=== PATIENT | female | born 1975 | race Hispanic/Latino ===

== ENCOUNTER 2022-04-20 15:39 | Emergency (ER) | payer SELFPAY ==
--- OUTSIDE RECORDS SUMMARY | 2022-04-20 15:46 | XMS REPORT | Continuity of Care Document ---
:1975 Author Organization [facility] t Address [address] [place] [address] [address]. [address] [place] [address] Care Team Providers Name Role Phone Amaris Stevens Primary Care Physician [phone] Problems This patient has no known problems. Allergies, Adverse Reactions, Alerts This patient has no known allergies or adverse reactions. Medications Ordered Filled Start Stop Current Ordering Indication Dosage Frequency Signature Comments Components Source Medication Medication Date Date Medication? Clinician (SIG) Name Name APPLY 2-3 2021-0 No 1 TIMES DAILY 8-30 TO AFFECTED 00:00: AREA(S). 00 APPLY 2-3 2021-0 No 1 TIMES DAILY 8-30 TO AFFECTED 00:00: AREA(S). 00 APPLY 2-3 2022-0 No TIMES DAILY 8-30 TO AFFECTED 00:00: AREA(S). 00 APPLY 2-3 2022-0 No TIMES DAILY 8-30 TO AFFECTED 00:00: AREA(S). 00 ketoconazol 2021-0 No 1% e 2 % 7-11 topical 00:00: cream 00 ketoconazol 2-0 No 1% e 2 % 7-11 topical 00:00: cream 00 ketoconazol 2021-0 No 1% e 2 % 7-11 topical 00:00: cream 00 ketoconazol 2-0 No 1% e 2 % 7-11 topical 00:00: cream 00 ketoconazol 2-0 No 1% e 2 % 7-11 topical 00:00: cream 00 ketoconazol 2-0 No 1% e 2 % 7-11 topical 00:00: cream 00 metronidazo 2-0 No 1mg le 500 mg 6-23 tablet 00:00: 00 metronidazo 2022-0 No 1mg le 500 mg 6-23 tablet 00:00: 00 metronidazo 2022-0 No 1mg le 500 mg 6-23 tablet 00:00: 00 metronidazo 2022-0 No 1mg le 500 mg 6-23 tablet 00:00: 00 metronidazo 2022-0 No 1mg le 500 mg 6-23 tablet 00:00: 00 metronidazo 2022-0 No 1mg le 500 mg 6-23 tablet 00:00: 00 Bactrim DS 2022-0 No 1mg 800 mg-160 6-22 mg tablet 00:00: 00 Bactrim DS 2022-0 No 1mg 800 mg-160 6-22 mg tablet 00:00: 00 Dose 2022-0 No Unknown 6-22 00:00: 00 Bactrim DS 2022-0 No 1mg 800 mg-160 6-22 mg tablet 00:00: 00 Bactrim DS 2022-0 No 1mg 800 mg-160 6-22 mg tablet 00:00: 00 Dose 2022-0 No Unknown 6-22 00:00: 00 Bactrim DS 2022-0 No 1mg 800 mg-160 6-22 mg tablet 00:00: 00 Bactrim DS 2022-0 No 1mg 800 mg-160 6-22 mg tablet 00:00: 00 Dose 2022-0 No Unknown 6-22 00:00: 00 Bactrim DS 2022-0 No 1mg 800 mg-160 6-22 mg tablet 00:00: 00 Bactrim DS 2022-0 No 1mg 800 mg-160 6-22 mg tablet 00:00: 00 Dose 2022-0 No Unknown 6-22 00:00: 00 Bactrim DS 2022-0 No 1mg 800 mg-160 6-22 mg tablet 00:00: 00 Bactrim DS 2022-0 No 1mg 800 mg-160 6-22 mg tablet 00:00: 00 Dose 2022-0 No Unknown 6-22 00:00: 00 Bactrim DS 2022-0 No 1mg 800 mg-160 6-22 mg tablet 00:00: 00 Bactrim DS 2022-0 No 1mg 800 mg-160 6-22 mg tablet 00:00: 00 Dose 2022-0 No Unknown 6-22 00:00: 00 Flagyl 500 2021-0 No 1mg mg tablet 8-14 00:00: 00 nystatin 2021-0 No 1unit/g 100,000 8-14 lucas unit/gram 00:00: topical 00 powder Flagyl 500 1-0 No 1mg mg tablet 12-11 00:00: 00 nystatin 2021-0 No 1unit/g 100,000 8-14 lucas unit/gram 00:00: topical 00 powder Flagyl 500 1-0 No 1mg mg tablet 12-11 00:00: 00 nystatin 2021-0 No 1unit/g 100,000 8-14 lucas unit/gram 00:00: topical 00 powder Flagyl 500 1-0 No 1mg mg tablet 12-11 00:00: 00 nystatin 2021-0 No 1unit/g 100,000 8-14 lucas unit/gram 00:00: topical 00 powder Flagyl 500 1-0 No 1mg mg tablet 12-11 00:00: 00 nystatin 2021-0 No 1unit/g 100,000 8-14 lucas unit/gram 00:00: topical 00 powder Flagyl 500 1-0 No 1mg mg tablet 12-11 00:00: 00 nystatin 2021-0 No 1unit/g 100,000 8-14 lucas unit/gram 00:00: topical 00 powder hydrocortis 1-0 No 1% one 1 % 4-29 topical 00:00: cream 00 Macrobid 1-0 No 1mg 100 mg 4-29 capsule 00:00: 00 Macrobid 2021-0 No 1mg 100 mg 4-29 capsule 00:00: 00 hydrocortis 2021-0 No 1% one 1 % 4-29 topical 00:00: cream 00 Macrobid 2021-0 No 1mg 100 mg 4-29 capsule 00:00: 00 Macrobid 2021-0 No 1mg 100 mg 4-29 capsule 00:00: 00 hydrocortis 2021-0 No 1% one 1 % 4-29 topical 00:00: cream 00 Macrobid 2021-0 No 1mg 100 mg 4-29 capsule 00:00: 00 Macrobid 2021-0 No 1mg 100 mg 4-29 capsule 00:00: 00 hydrocortis 2021-0 No 1% one 1 % 4-29 topical 00:00: cream 00 Macrobid 1-0 No 1mg 100 mg 4-29 capsule 00:00: 00 Dose 2021-0 No Unknown 4-29 00:00: 00 hydrocortis 1-0 No 1% one 1 % 4-29 topical 00:00: cream 00 hydrocortis 1-0 No 1% one 1 % 4-29 topical 00:00: cream 00 Macrobid 1-0 No 1mg 100 mg 4-29 capsule 00:00: 00 Dose 2021-0 No Unknown 4-29 00:00: 00 Macrobid 2021-0 No 1mg 100 mg 4-29 capsule 00:00: 00 Macrobid 1-0 No 1mg 100 mg 4-29 capsule 00:00: 00 metronidazo 2020-0 No 1mg le 500 mg 2-18 tablet 00:00: 00 metronidazo 2020-0 No 1mg le 500 mg 2-18 tablet 00:00: 00 metronidazo 2020-0 No 1mg le 500 mg 2-18 tablet 00:00: 00 metronidazo 2020-0 No 1mg le 500 mg 2-18 tablet 00:00: 00 metronidazo 2020-0 No 1mg le 500 mg 2-18 tablet 00:00: 00 metronidazo 2020-0 No 1mg le 500 mg 2-18 tablet 00:00: 00 metronidazo 2018-1 No 1mg le 500 mg 1-01 tablet 00:00: 00 metronidazo 2018-1 No 1mg le 500 mg 1-01 tablet 00:00: 00 metronidazo 2018-1 No 1mg le 500 mg 1-01 tablet 00:00: 00 metronidazo 2018-1 No 1mg le 500 mg 1-01 tablet 00:00: 00 metronidazo 2018-1 No 1mg le 500 mg 1-01 tablet 00:00: 00 metronidazo 2018-1 No 1mg le 500 mg 1-01 tablet 00:00: 00 azithromyci 2018-1 No 2mg n 500 mg 0-31 tablet 00:00: 00 azithromyci 2018-1 No 2mg n 500 mg 0-31 tablet 00:00: 00 azithromyci 2018-1 No 2mg n 500 mg 0-31 tablet 00:00: 00 azithromyci 2018-1 No 2mg n 500 mg 0-31 tablet 00:00: 00 azithromyci 2017-1 No 2mg n 500 mg 0-31 tablet 00:00: 00 azithromyci 2017-1 No 2mg n 500 mg 0-31 tablet 00:00: 00 Vital Signs Vital Name Observation Time Observation Value Comments Source BP Systolic 2022-03-06 14:10:00 110 mm[Hg] BP Diastolic 2022-03-06 14:10:00 76 mm[Hg] Weight Measured 2022-03-06 14:10:00 221.20 pounds Height Measured 2022-03-06 14:10:00 59.84 inches Body Temperature 2022-03-06 14:10:00 98.00 degrees Heart Rate 2022-03-06 14:10:00 71.00 /min Respiratory Rate 2022-03-06 14:10:00 17.00 /min BP Systolic 2022-01-11 17:34:00 110 mm[Hg] BP Diastolic 2022-01-11 17:34:00 72 mm[Hg] Weight Measured 2022-01-11 17:34:00 218.20 pounds Height Measured 2022-01-11 17:34:00 59.84 inches Body Temperature 2022-01-11 17:34:00 98.20 degrees Heart Rate 2022-01-11 17:34:00 78.00 /min Respiratory Rate 2022-01-11 17:34:00 18.00 /min BP Systolic 2022-01-04 13:29:00 123 mm[Hg] BP Diastolic 2022-01-04 13:29:00 76 mm[Hg] Weight Measured 2022-01-04 13:29:00 218.20 pounds Height Measured 2022-01-04 13:29:00 59.84 inches Body Temperature 2022-01-04 13:29:00 98.30 degrees Heart Rate 2022-01-04 13:29:00 100.00 /min Respiratory Rate 2022-01-04 13:29:00 18.00 /min BP Systolic 2021-12-27 16:20:00 96 mm[Hg] BP Diastolic 2021-12-27 16:20:00 57 mm[Hg] Weight Measured 2021-12-27 16:20:00 217.40 pounds Height Measured 2021-12-27 16:20:00 59.84 inches Body Temperature 2021-12-27 16:20:00 98.10 degrees Heart Rate 2021-12-27 16:20:00 69.00 /min Respiratory Rate 2021-12-27 16:20:00 16.00 /min BP Systolic 2021-12-01 08:37:00 119 mm[Hg] BP Diastolic 2021-12-01 08:37:00 76 mm[Hg] Weight Measured 2021-12-01 08:37:00 214.80 pounds Height Measured 2021-12-01 08:37:00 59.84 inches Body Temperature 2021-12-01 08:37:00 98.40 degrees Heart Rate 2021-12-01 08:37:00 61.00 /min Respiratory Rate 2021-12-01 08:37:00 BP Systolic 2021-11-07 14:53:00 104 mm[Hg] BP Diastolic 2021-11-07 14:53:00 72 mm[Hg] Weight Measured 2021-11-07 14:53:00 215.00 pounds Height Measured 2021-11-07 14:53:00 59.84 inches Body Temperature 2021-11-07 14:53:00 98.20 degrees Heart Rate 2021-11-07 14:53:00 72.00 /min Respiratory Rate 2021-11-07 14:53:00 18.00 /min BP Systolic 2021-10-19 10:59:00 110 mm[Hg] BP Diastolic 2021-10-19 10:59:00 76 mm[Hg] Weight Measured 2021-10-19 10:59:00 215.60 pounds Height Measured 2021-10-19 10:59:00 59.84 inches Body Temperature 2021-10-19 10:59:00 98.10 degrees Heart Rate 2021-10-19 10:59:00 64.00 /min Respiratory Rate 2021-10-19 10:59:00 19.00 /min BP Systolic 2020-12-11 10:10:00 112 mm[Hg] BP Diastolic 2020-12-11 10:10:00 80 mm[Hg] Weight Measured 2020-12-11 10:10:00 212.00 pounds Height Measured 2020-12-11 10:10:00 59.84 inches Body Temperature 2020-12-11 10:10:00 98.20 degrees Heart Rate 2020-12-11 10:10:00 79.00 /min Respiratory Rate 2020-12-11 10:10:00 17.00 /min BP Systolic 2020-09-11 10:39:00 105 mm[Hg] BP Diastolic 2020-09-11 10:39:00 69 mm[Hg] Weight Measured 2020-09-11 10:39:00 208.00 pounds Height Measured 2020-09-11 10:39:00 59.84 inches Body Temperature 2020-09-11 10:39:00 97.80 degrees Heart Rate 2020-09-11 10:39:00 76.00 /min Respiratory Rate 2020-09-11 10:39:00 BP Systolic 2020-08-26 14:28:00 108 mm[Hg] BP Diastolic 2020-08-26 14:28:00 68 mm[Hg] Weight Measured 2020-08-26 14:28:00 208.00 pounds Height Measured 2020-08-26 14:28:00 59.84 inches Body Temperature 2020-08-26 14:28:00 97.70 degrees Heart Rate 2020-08-26 14:28:00 79.00 /min Respiratory Rate 2020-08-26 14:28:00 17.00 /min BP Systolic 2019-06-12 09:03:00 108 mm[Hg] BP Diastolic 2019-06-12 09:03:00 69 mm[Hg] Weight Measured 2019-06-12 09:03:00 186.40 pounds Height Measured 2019-06-12 09:03:00 59.84 inches Body Temperature 2019-06-12 09:03:00 98.40 degrees Heart Rate 2019-06-12 09:03:00 68.00 /min Respiratory Rate 2019-06-12 09:03:00 Heart Rate 2018-02-25 11:50:00 73.00 /min Respiratory Rate 2018-02-25 11:50:00 18.00 /min BP Systolic 2018-02-25 11:50:00 105 mm[Hg] BP Diastolic 2018-02-25 11:50:00 69 mm[Hg] Weight Measured 2018-02-25 11:50:00 169.90 pounds Height Measured 2018-02-25 11:50:00 59.84 inches Body Temperature 2018-02-25 11:50:00 98.50 degrees Procedures This patient has no known procedures. Plan of Care Planned Activity Planned Date Details Comments Source Goal Plan of Care Note [code = 42239-7] Goal Plan of Care Note [code = 13620-9] Goal Plan of Care Note [code = 45418-1] Goal Plan of Care Note [code = 82753-0] Goal Plan of Care Note [code = 34360-7] Goal Plan of Care Note [code = 98940-3] Goal Plan of Care Note [code = 20152-0] Goal Plan of Care Note [code = 21169-4] Goal Plan of Care Note [code = 90335-6] Goal Plan of Care Note [code = 70668-0] Goal Plan of Care Note [code = 62040-0] Goal Plan of Care Note [code = 77950-5] Goal Plan of Care Note [code = 31763-8] Goal Plan of Care Note [code = 36784-0] Goal Plan of Care Note [code = 91222-6] Goal Plan of Care Note [code = 01316-8] Goal Plan of Care Note [code = 02658-6] Goal Plan of Care Note [code = 98357-1] Goal Plan of Care Note [code = 20840-1] Goal Plan of Care Note [code = 05681-5] Goal Plan of Care Note [code = 51969-2] Goal Plan of Care Note [code = 20298-9] Goal Plan of Care Note [code = 90847-4] Goal Plan of Care Note [code = 62578-6] Goal Plan of Care Note [code = 69405-8] Goal Plan of Care Note [code = 81435-8] Goal Plan of Care Note [code = 59197-3] Goal Plan of Care Note [code = 61918-8] Goal Plan of Care Note [code = 68509-7] Goal Plan of Care Note [code = 46292-6] Goal Plan of Care Note [code = 48225-5] Goal Plan of Care Note [code = 69464-3] Goal Plan of Care Note [code = 55597-2] Goal Plan of Care Note [code = 91240-9] Goal Plan of Care Note [code = 63111-3] Goal Plan of Care Note [code = 01945-8] Goal Plan of Care Note [code = 63765-9] Goal Plan of Care Note [code = 30760-6] Goal Plan of Care Note [code = 77307-8] Goal Plan of Care Note [code = 29512-5] Goal Plan of Care Note [code = 42012-1] Goal Plan of Care Note [code = 91063-2] Goal Plan of Care Note [code = 06656-3] Goal Plan of Care Note [code = 24079-6] Goal Plan of Care Note [code = 59110-2] Goal Plan of Care Note [code = 63005-8] Goal Plan of Care Note [code = 21170-2] Goal Plan of Care Note [code = 48203-0] Goal Plan of Care Note [code = 91888-4] Goal Plan of Care Note [code = 85677-6] Goal Plan of Care Note [code = 43105-4] Goal Plan of Care Note [code = 76049-7] Goal Plan of Care Note [code = 82465-0] Goal Plan of Care Note [code = 25746-9] Goal Plan of Care Note [code = 00774-1] Goal Plan of Care Note [code = 99979-2] Goal Plan of Care Note [code = 62164-3] Goal Plan of Care Note [code = 25334-8] Goal Plan of Care Note [code = 11796-0] Goal Plan of Care Note [code = 72683-0] Goal Plan of Care Note [code = 73947-6] Goal Plan of Care Note [code = 34152-1] Goal Plan of Care Note [code = 00303-5] Goal Plan of Care Note [code = 41643-7] Goal Plan of Care Note [code = 91547-1] Goal Plan of Care Note [code = 11430-7] Goal Plan of Care Note [code = 18767-2] Goal Plan of Care Note [code = 87742-5] Goal Plan of Care Note [code = 58058-4] Goal Plan of Care Note [code = 37800-5] Goal Plan of Care Note [code = 90592-3] Goal Plan of Care Note [code = 13217-9] Goal Plan of Care Note [code = 57533-5] Goal Plan of Care Note [code = 03221-5] Goal Plan of Care Note [code = 89351-6] Goal Plan of Care Note [code = 40147-9] Goal Plan of Care Note [code = 70234-8] Goal Plan of Care Note [code = 19759-6] Goal Plan of Care Note [code = 42711-4] Goal Plan of Care Note [code = 52535-2] Goal Plan of Care Note [code = 47693-5] Goal Plan of Care Note [code = 25442-4] Goal Plan of Care Note [code = 02151-1] Goal Plan of Care Note [code = 51832-8] Goal Plan of Care Note [code = 45809-7] Goal Plan of Care Note [code = 93037-7] Goal Plan of Care Note [code = 34023-2] Goal Plan of Care Note [code = 17136-9] Goal Plan of Care Note [code = 84617-6] Goal Plan of Care Note [code = 16433-7] Goal Plan of Care Note [code = 83683-6] Goal Plan of Care Note [code = 31145-8] Goal Plan of Care Note [code = 93349-4] Goal Plan of Care Note [code = 52301-6] Goal Plan of Care Note [code = 62383-4] Goal Plan of Care Note [code = 28385-0] Goal Plan of Care Note [code = 34663-6] Goal Plan of Care Note [code = 63727-1] Goal Plan of Care Note [code = 38305-3] Goal Plan of Care Note [code = 41762-5] Goal Plan of Care Note [code = 23851-3] Goal Plan of Care Note [code = 37831-3] Goal Plan of Care Note [code = 47619-3] Goal Plan of Care Note [code = 57800-3] Goal Plan of Care Note [code = 47657-0] Goal Plan of Care Note [code = 39351-9] Goal Plan of Care Note [code = 17725-5] Goal Plan of Care Note [code = 57489-9] Goal Plan of Care Note [code = 86717-7] Goal Plan of Care Note [code = 56328-1] Goal Plan of Care Note [code = 87423-3] Goal Plan of Care Note [code = 23837-6] Goal Plan of Care Note [code = 79874-5] Goal Plan of Care Note [code = 42696-7] Goal Plan of Care Note [code = 53328-2] Goal Plan of Care Note [code = 42510-2] Goal Plan of Care Note [code = 58770-4] Goal Plan of Care Note [code = 98718-7] Goal Plan of Care Note [code = 79547-7] Goal Plan of Care Note [code = 53726-3] Goal Plan of Care Note [code = 39286-0] Goal Plan of Care Note [code = 97891-9] Goal Plan of Care Note [code = 53401-4] Goal Plan of Care Note [code = 64998-4] Goal Plan of Care Note [code = 26027-3] Goal Plan of Care Note [code = 91806-7] Goal Plan of Care Note [code = 41708-5] Goal Plan of Care Note [code = 09494-5] Goal Plan of Care Note [code = 31133-8] Goal Plan of Care Note [code = 04070-9] Goal Plan of Care Note [code = 25500-0] Goal Plan of Care Note [code = 99927-3] Goal Plan of Care Note [code = 08990-6] Goal Plan of Care Note [code = 51716-3] Goal Plan of Care Note [code = 96359-5] Goal Plan of Care Note [code = 31498-9] Goal Plan of Care Note [code = 24491-7] Goal Plan of Care Note [code = 29562-6] Goal Plan of Care Note [code = 05266-5] Goal Plan of Care Note [code = 60899-9] Goal Plan of Care Note [code = 07969-8] Goal Plan of Care Note [code = 81471-5] Goal Plan of Care Note [code = 71812-3] Goal Plan of Care Note [code = 03099-3] Goal Plan of Care Note [code = 51981-7] Goal Plan of Care Note [code = 64229-5] Goal Plan of Care Note [code = 56392-9] Goal Plan of Care Note [code = 80310-9] Goal Plan of Care Note [code = 32346-2] Goal Plan of Care Note [code = 98463-2] Goal Plan of Care Note [code = 28309-5] Goal Plan of Care Note [code = 54115-6] Goal Plan of Care Note [code = 87408-5] Goal Plan of Care Note [code = 96535-9] Goal Plan of Care Note [code = 21454-3] Goal Plan of Care Note [code = 27596-3] Goal Plan of Care Note [code = 03978-4] Goal Plan of Care Note [code = 65833-7] Goal Plan of Care Note [code = 59112-9] Goal Plan of Care Note [code = 42172-9] Goal Plan of Care Note [code = 72299-8] Goal Plan of Care Note [code = 62359-5] Goal Plan of Care Note [code = 97895-1] Goal Plan of Care Note [code = 91778-9] Goal Plan of Care Note [code = 52332-6] Goal Plan of Care Note [code = 72023-5] Goal Plan of Care Note [code = 59912-2] Goal Plan of Care Note [code = 78983-3] Goal Plan of Care Note [code = 45362-1] Goal Plan of Care Note [code = 84381-1] Goal Plan of Care Note [code = 36808-3] Goal Plan of Care Note [code = 42465-5] Goal Plan of Care Note [code = 37480-5] Goal Plan of Care Note [code = 54665-4] Goal Plan of Care Note [code = 73500-8] Goal Plan of Care Note [code = 50497-8] Goal Plan of Care Note [code = 10047-0] Goal Plan of Care Note [code = 48844-0] Goal Plan of Care Note [code = 48984-7] Goal Plan of Care Note [code = 19759-1] Goal Plan of Care Note [code = 72170-8] Goal Plan of Care Note [code = 52088-1] Goal Plan of Care Note [code = 24099-4] Goal Plan of Care Note [code = 79695-9] Goal Plan of Care Note [code = 46898-7] Goal Plan of Care Note [code = 62623-3] Goal Plan of Care Note [code = 39194-9] Goal Plan of Care Note [code = 44220-5] Goal Plan of Care Note [code = 47462-1] Goal Plan of Care Note [code = 33263-5] Goal Plan of Care Note [code = 36197-3] Goal Plan of Care Note [code = 48622-5] Goal Plan of Care Note [code = 81968-1] Goal Plan of Care Note [code = 12113-7] Goal Plan of Care Note [code = 93902-5] Goal Plan of Care Note [code = 24297-5] Encounters Start End Encounter Admission Attending Care Care Encounter Source Date/Time Date/Time Type Type Clinicians Facility Department ID 2022-03-06 2022-03-[address] [facility] S[facility] [id number] Vadim Carroll 14:06:14 14:06:14 1107 F Kg 2022-03-06 2022-03-06 Outpatient [id number]- [id number] dh738w-s 00:00:00 00:00:00 Visit e249-12k5 578-42d3-a -i156-441 [id number] 587mm8wpt da9fde 2022-01-11 2022-01-11 Outpatient [id number] [id number] 00:00:00 00:00:00 Visit 8u97-6303 m93-5974-1 -2e75-89y p38-07a364 [id number] 75ae88 2022-01-04 2022-01-04 Outpatient [id number]- [id number] 2ey1j2-1 00:00:00 00:00:00 Visit 6m63-399s d94-981o-r -v439-38s 741-43fac0 zd77d4m4h 8d3d7b 2021-12-27 2021-12-27 Outpatient [id number]- [id number] 5e 698c3i-0 00:00:00 00:00:00 Visit 1653-4e1d 653-4e1d-8 -75x4-6na 2l5-5hpu4z h7r98d1m0 08a3a6 2021-12-01 2021-12-01 Outpatient [id number]- [id number] p34t17-4 00:00:00 00:00:00 Visit 38n0-9ihd 2l5-2bhf-m -bde4-0dc de4-0dcfef vqd0hv87q 2dd69b 2021-11-07 2021-11-07 Outpatient [id number] 281bfd-4 00:00:00 00:00:00 Visit 4416-4a71 416-4a71-b -i800-x99 [id number]-y82060 991474t5c 425f7a Results Test Description Test Time Test Comments Results Result Comments Source TSH, THIRD GENERATION 2022-01-05 06:26:42 Test Item Value Reference Range Interpretation Comme nts TSH, THIRD GENERATION (test code = 2821) 4.420 UIU/ML 0.400-4.100 H T4 (THYROXINE)2022-01-05 06:26:42 Test Item Value Reference Range Interpretation Comments T4 (THYROXINE) (test code = 2819) 5.9 UG/DL 4.5-10.5 COMPREHENSIVE METABOLIC [id number] 06:08:49 Test Item Value Reference Range Interpretation Comments GLUCOSE (test code = 168 MG/DL 70-99 H 2216) BUN (test code = 11 MG/DL 6-20 2207) CREATININE (test 0.76 MG/DL 0.60-1.30 code = 2214) eGFR (2020 CKD-EPI) 99 ML/MIN/1.73 >60 (test code = 48375) CALC BUN/CREAT (test 14 RATIO 6-28 code = 2235) SODIUM (test code = 140 MEQ/L 853-712 7516) POTASSIUM (test code 4.4 MEQ/L 3.5-5.4 = 2227) CHLORIDE (test code 102 MEQ/L 95-107 = 2215) CARBON DIOXIDE (test 28 MEQ/L 19-31 code = 2206) CALCIUM (test code = 9.9 MG/DL 8.5-10.5 2208) PROTEIN, TOTAL (test 7.5 G/DL 6.1-8.3 code = 2229) ALBUMIN (test code = 4.7 G/DL 3.5-5.2 2200) CALC GLOBULIN (test 2.8 G/DL 1.9-3.7 code = 2240) CALC A/G RATIO (test 1.7 RATIO 1.0-2.6 code = 2234) BILIRUBIN, TOTAL 0.8 MG/DL See_Comment [Automated message] (test code = 2207) The syste m which generated this result transmit corinne reference range : <=1.2. The refe rence range was not u sed to interpret th is result as normal/abnormal . ALKALINE PHOSPHATASE 105 U/L 40-115 (test code = 2204) AST (test code = 38 U/L 9-40 2217) ALT (test code = 41 U/L 5-40 H 2218) HEMOGLOBIN [id number] 05:38:15 Test Item Value Reference Range Interpretation Comments HEMOGLOBIN A1c (test 5.8 % 4.2-5.6 H UNLESS OTHERWISE code = 07588) INDICATED, ALL TESTING PERFORMED [facility] [employer] [address] [place] [id number] [place] [address] DIRECTOR: ARLETH ORO M.D. CLIA NUMBER [id number] CAP ACCREDITATION N O. [id number] 00:00:00 Test Item Value Reference Range Interpretation Comments TSH, THIRD GENERATION (test code 4.420 UIU/ML = 2821) [id number] 00:00:00 Test Item Value Reference Range Interpretation Comments TSH, THIRD GENERATION (test code 4.420 UIU/ML = 2821) [id number] 00:00:00 Test Item Value Reference Range Interpretation Comments TSH, THIRD GENERATION (test code 4.420 UIU/ML = 2821) T4 (THYROXINE)2022-01-05 00:00:00 Test Item Value Reference Range Interpretation Comments T4 (THYROXINE) (test code = 2819) 5.9 UG/DL T4 (THYROXINE)2022-01-05 00:00:00 Test Item Value Reference Range Interpretation Comments T4 (THYROXINE) (test code = 2819) 5.9 UG/DL COMPREHENSIVE METABOLIC [id number] 00:00:00 Test Item Value Reference Range Interpretation Comments GLUCOSE (test code = 2217) 168 MG/DL BUN (test code = 2208) 11 MG/DL CREATININE (test code = 2214) 0.76 MG/DL eGFR (2020 CKD-EPI) (test code 99 ML/MIN/1.73 = 88462) CALC BUN/CREAT (test code = 14 RATIO 2235) SODIUM (test code = 2231) 140 MEQ/L POTASSIUM (test code = 2228) 4.4 MEQ/L CHLORIDE (test code = 2215) 102 MEQ/L CARBON DIOXIDE (test code = 28 MEQ/L 2206) CALCIUM (test code = 2209) 9.9 MG/DL PROTEIN, TOTAL (test code = 7.5 G/DL 2228) ALBUMIN (test code = 2201) 4.7 G/DL CALC GLOBULIN (test code = 2.8 G/DL 2240) CALC A/G RATIO (test code = 1.7 RATIO 2234) BILIRUBIN, TOTAL (test code = 0.8 MG/DL 2206) ALKALINE PHOSPHATASE (test 105 U/L code = 2204) AST (test code = 2218) 38 U/L ALT (test code = 2219) 41 U/L COMPREHENSIVE METABOLIC [id number] 00:00:00 Test Item Value Reference Range Interpretation Comments GLUCOSE (test code = 2217) 168 MG/DL BUN (test code = 2208) 11 MG/DL CREATININE (test code = 2214) 0.76 MG/DL eGFR (2020 CKD-EPI) (test code 99 ML/MIN/1.73 = 14719) CALC BUN/CREAT (test code = 14 RATIO 2235) SODIUM (test code = 2231) 140 MEQ/L POTASSIUM (test code = 2228) 4.4 MEQ/L CHLORIDE (test code = 2215) 102 MEQ/L CARBON DIOXIDE (test code = 28 MEQ/L 6) CALCIUM (test code = 2209) 9.9 MG/DL PROTEIN, TOTAL (test code = 7.5 G/DL 2228) ALBUMIN (test code = 2201) 4.7 G/DL CALC GLOBULIN (test code = 2.8 G/DL 2240) CALC A/G RATIO (test code = 1.7 RATIO 2234) BILIRUBIN, TOTAL (test code = 0.8 MG/DL 2206) ALKALINE PHOSPHATASE (test 105 U/L code = 2204) AST (test code = 2218) 38 U/L ALT (test code = 2219) 41 U/L HEMOGLOBIN [id number] 00:00:00 Test Item Value Reference Range Interpretation Comments HEMOGLOBIN A1c (test code = 08027) 5.8 % HEMOGLOBIN [id number] 00:00:00 Test Item Value Reference Range Interpretation Comments HEMOGLOBIN A1c (test code = 63784) 5.8 % HEMOGLOBIN [id number] 00:00:00 Test Item Value Reference Range Interpretation Comments HEMOGLOBIN A1c (test code = 35251) 5.8 % [id number] 00:00:00 Test Item Value Reference Range Interpretation Comments TSH, THIRD GENERATION (test code 4.420 UIU/ML = 2821) [id number] 00:00:00 Test Item Value Reference Range Interpretation Comments TSH, THIRD GENERATION (test code 4.420 UIU/ML = 2821) [id number] 00:00:00 Test Item Value Reference Range Interpretation Comments TSH, THIRD GENERATION (test code 4.420 UIU/ML = 2821) T4 (THYROXINE)2022-01-05 00:00:00 Test Item Value Reference Range Interpretation Comments T4 (THYROXINE) (test code = 2819) 5.9 UG/DL T4 (THYROXINE)2022-01-05 00:00:00 Test Item Value Reference Range Interpretation Comments T4 (THYROXINE) (test code = 2819) 5.9 UG/DL COMPREHENSIVE METABOLIC [id number] 00:00:00 Test Item Value Reference Range Interpretation Comments GLUCOSE (test code = 2217) 168 MG/DL BUN (test code = 2208) 11 MG/DL CREATININE (test code = 2214) 0.76 MG/DL eGFR (2020 CKD-EPI) (test code 99 ML/MIN/1.73 = 16980) CALC BUN/CREAT (test code = 14 RATIO 2234) SODIUM (test code = 2231) 140 MEQ/L POTASSIUM (test code = 2228) 4.4 MEQ/L CHLORIDE (test code = 2215) 102 MEQ/L CARBON DIOXIDE (test code = 28 MEQ/L 2205) CALCIUM (test code = 2209) 9.9 MG/DL PROTEIN, TOTAL (test code = 7.5 G/DL 2228) ALBUMIN (test code = 2201) 4.7 G/DL CALC GLOBULIN (test code = 2.8 G/DL 2239) CALC A/G RATIO (test code = 1.7 RATIO 2233) BILIRUBIN, TOTAL (test code = 0.8 MG/DL 2206) ALKALINE PHOSPHATASE (test 105 U/L code = 2204) AST (test code = 2218) 38 U/L ALT (test code = 2219) 41 U/L COMPREHENSIVE METABOLIC [id number] 00:00:00 Test Item Value Reference Range Interpretation Comments GLUCOSE (test code = 2217) 168 MG/DL BUN (test code = 2208) 11 MG/DL CREATININE (test code = 2214) 0.76 MG/DL eGFR (2020 CKD-EPI) (test code 99 ML/MIN/1.73 = 59087) CALC BUN/CREAT (test code = 14 RATIO 2235) SODIUM (test code = 2231) 140 MEQ/L POTASSIUM (test code = 2228) 4.4 MEQ/L CHLORIDE (test code = 2215) 102 MEQ/L CARBON DIOXIDE (test code = 28 MEQ/L 2205) CALCIUM (test code = 2209) 9.9 MG/DL PROTEIN, TOTAL (test code = 7.5 G/DL 2228) ALBUMIN (test code = 2201) 4.7 G/DL CALC GLOBULIN (test code = 2.8 G/DL 2239) CALC A/G RATIO (test code = 1.7 RATIO 2233) BILIRUBIN, TOTAL (test code = 0.8 MG/DL 2206) ALKALINE PHOSPHATASE (test 105 U/L code = 2204) AST (test code = 2218) 38 U/L ALT (test code = 2219) 41 U/L HEMOGLOBIN [id number] 00:00:00 Test Item Value Reference Range Interpretation Comments HEMOGLOBIN A1c (test code = 79552) 5.8 % HEMOGLOBIN [id number] 00:00:00 Test Item Value Reference Range Interpretation Comments HEMOGLOBIN A1c (test code = 29353) 5.8 % HEMOGLOBIN [id number] 00:00:00 Test Item Value Reference Range Interpretation Comments HEMOGLOBIN A1c (test code = 20824) 5.8 % TSH, THIRD [id number] 04:49:44 Test Item Value Reference Range Interpretation Comments TSH, THIRD 5.700 UIU/ML 0.400-4.100 H UNLESS OTHERWI SE GENERATION (test INDICATED, ALL TESTING code = 2821) PERFORMED [facility], [address] [place] [address] [facility] DIRECTOR: ARLETH ORO M.D. CLIA NUMBER [id number] CAP ACCREDITATION N O. [id number] COMPREHENSIVE METABOLIC [id number] 04:33:48 Test Item Value Reference Range Interpretation Comments GLUCOSE (test code = 147 MG/DL 70-99 H 2216) BUN (test code = 14 MG/DL 6-20 2207) CREATININE (test 0.81 MG/DL 0.60-1.30 code = 2214) eGFR (2020 CKD-EPI) 92 ML/MIN/1.73 >60 (test code = 32824) CALC BUN/CREAT (test 17 RATIO 6-28 code = 2235) SODIUM (test code = 141 MEQ/L 230-428 5481) POTASSIUM (test code 4.4 MEQ/L 3.5-5.4 = 2227) CHLORIDE (test code 102 MEQ/L 95-107 = 2214) CARBON DIOXIDE (test 28 MEQ/L 19-31 code = 220) CALCIUM (test code = 9.9 MG/DL 8.5-10.5 2208) PROTEIN, TOTAL (test 7.4 G/DL 6.1-8.3 code = 222) ALBUMIN (test code = 4.6 G/DL 3.5-5.2 2200) CALC GLOBULIN (test 2.8 G/DL 1.9-3.7 code = 2240) CALC A/G RATIO (test 1.6 RATIO 1.0-2.6 code = 2234) BILIRUBIN, TOTAL 0.5 MG/DL See_Comment [Automated message] (test code = 2207) The syste m which generated this result transmit corinne reference range : <=1.2. The refe rence range was not u sed to interpret th is result as normal/abnormal . ALKALINE PHOSPHATASE 116 U/L 40-113 H (test code = 2204) AST (test code = 30 U/L 9-40 2217) ALT (test code = 46 U/L 5-40 H 2218) CBC W/AUTO DIFF WITH [id number] 02:57:27 Test Item Value Reference Range Interpretation Comments WBC (test code = 9.8 K/UL 3.5-11.0 1001) RBC (test code = 4.84 M/UL 3.80-5.40 1002) HEMOGLOBIN (test code 13.7 G/DL 11.5-15.5 = 1003) HEMATOCRIT (test code 42.0 % 34.0-45.0 = 1004) MCV (test code = 86.8 fL 80.0-99.0 1005) MCH (test code = 28.3 PG 25.0-33.0 1006) MCHC (test code = 32.6 G/DL 31.0-36.0 1007) RDW (test code = 13.2 % 11.5-15.0 1038) NEUTROPHILS (test 63.7 % code = 1008) LYMPHOCYTES (test 29.4 % code = 1010) MONOCYTES (test code 3.7 % = 1011) EOSINOPHILS (test 1.8 % code = 1012) BASOPHILS (test code 1.1 % = 1013) IMMATURE GRANULOCYTES 0.3 % (test code = 1036) NUCLEATED RBCS (test 0.0 /100 WBC'S See_Comment [Aut omated code = 1065) message] The sy stem which generated this result transmitted reference range : 0.0. The refere nce range was not u sed to interpret th is result as normal/abnormal . PLATELET COUNT (test 316 K/UL 130-400 code = 1015) ABSOLUTE NEUTROPHILS 6.22 K/UL 1.50-7.50 (test code = 1066) ABSOLUTE LYMPHOCYTES 2.88 K/UL 1.00-4.00 (test code = 1067) ABSOLUTE MONOCYTES 0.36 K/UL 0.20-1.00 (test code = 1068) ABSOLUTE EOSINOPHILS 0.18 K/UL 0.00-0.50 (test code = 1040) ABSOLUTE BASOPHILS 0.11 K/UL 0.00-0.20 (test code = 1069) ABS IMMATURE 0.03 K/UL 0.00-0.10 GRANULOCYTES (test code = 1020) ABS NUCLEATED RBCS 0.00 K/UL 0.00-0.11 (test code = 99001) CBC W/AUTO [id number] 00:00:00 Test Item Value Reference Range Interpretation Comments WBC (test code = 1001) 9.8 K/UL RBC (test code = 1002) 4.84 M/UL HEMOGLOBIN (test code = 1003) 13.7 G/DL HEMATOCRIT (test code = 1004) 42.0 % MCV (test code = 1005) 86.8 fL MCH (test code = 1006) 28.3 PG MCHC (test code = 1007) 32.6 G/DL RDW (test code = 1038) 13.2 % NEUTROPHILS (test code = 1008) 63.7 % LYMPHOCYTES (test code = 1010) 29.4 % MONOCYTES (test code = 1011) 3.7 % EOSINOPHILS (test code = 1012) 1.8 % BASOPHILS (test code = 1013) 1.1 % IMMATURE GRANULOCYTES (test 0.3 % code = 1036) NUCLEATED RBCS (test code = 0.0 /100WBC'S 1065) PLATELET COUNT (test code = 316 K/UL 1015) ABSOLUTE NEUTROPHILS (test code 6.22 K/UL = 1066) ABSOLUTE LYMPHOCYTES (test code 2.88 K/UL = 1067) ABSOLUTE MONOCYTES (test code = 0.36 K/UL 1068) ABSOLUTE EOSINOPHILS (test code 0.18 K/UL = 1040) ABSOLUTE BASOPHILS (test code = 0.11 K/UL 1069) ABS IMMATURE GRANULOCYTES (test 0.03 K/UL code = 1020) ABS NUCLEATED RBCS (test code = 0.00 K/UL 51319) CBC W/AUTO [id number] 00:00:00 Test Item Value Reference Range Interpretation Comments WBC (test code = 1001) 9.8 K/UL RBC (test code = 1002) 4.84 M/UL HEMOGLOBIN (test code = 1003) 13.7 G/DL HEMATOCRIT (test code = 1004) 42.0 % MCV (test code = 1005) 86.8 fL MCH (test code = 1006) 28.3 PG MCHC (test code = 1007) 32.6 G/DL RDW (test code = 1038) 13.2 % NEUTROPHILS (test code = 1008) 63.7 % LYMPHOCYTES (test code = 1010) 29.4 % MONOCYTES (test code = 1011) 3.7 % EOSINOPHILS (test code = 1012) 1.8 % BASOPHILS (test code = 1013) 1.1 % IMMATURE GRANULOCYTES (test 0.3 % code = 1036) NUCLEATED RBCS (test code = 0.0 /100WBC'S 1065) PLATELET COUNT (test code = 316 K/UL 1015) ABSOLUTE NEUTROPHILS (test code 6.22 K/UL = 1066) ABSOLUTE LYMPHOCYTES (test code 2.88 K/UL = 1067) ABSOLUTE MONOCYTES (test code = 0.36 K/UL 1068) ABSOLUTE EOSINOPHILS (test code 0.18 K/UL = 1040) ABSOLUTE BASOPHILS (test code = 0.11 K/UL 1069) ABS IMMATURE GRANULOCYTES (test 0.03 K/UL code = 1020) ABS NUCLEATED RBCS (test code = 0.00 K/UL 50787) CBC W/AUTO [id number] 00:00:00 Test Item Value Reference Range Interpretation Comments WBC (test code = 1001) 9.8 K/UL RBC (test code = 1002) 4.84 M/UL HEMOGLOBIN (test code = 1003) 13.7 G/DL HEMATOCRIT (test code = 1004) 42.0 % MCV (test code = 1005) 86.8 fL MCH (test code = 1006) 28.3 PG MCHC (test code = 1007) 32.6 G/DL RDW (test code = 1038) 13.2 % NEUTROPHILS (test code = 1008) 63.7 % LYMPHOCYTES (test code = 1010) 29.4 % MONOCYTES (test code = 1011) 3.7 % EOSINOPHILS (test code = 1012) 1.8 % BASOPHILS (test code = 1013) 1.1 % IMMATURE GRANULOCYTES (test 0.3 % code = 1036) NUCLEATED RBCS (test code = 0.0 /100WBC'S 1065) PLATELET COUNT (test code = 316 K/UL 1015) ABSOLUTE NEUTROPHILS (test code 6.22 K/UL = 1066) ABSOLUTE LYMPHOCYTES (test code 2.88 K/UL = 1067) ABSOLUTE MONOCYTES (test code = 0.36 K/UL 1068) ABSOLUTE EOSINOPHILS (test code 0.18 K/UL = 1040) ABSOLUTE BASOPHILS (test code = 0.11 K/UL 1069) ABS IMMATURE GRANULOCYTES (test 0.03 K/UL code = 1020) ABS NUCLEATED RBCS (test code = 0.00 K/UL 79348) COMPREHENSIVE METABOLIC [id number] 00:00:00 Test Item Value Reference Range Interpretation Comments GLUCOSE (test code = 2217) 147 MG/DL BUN (test code = 2208) 14 MG/DL CREATININE (test code = 2214) 0.81 MG/DL eGFR (2020 CKD-EPI) (test code 92 ML/MIN/1.73 = 72933) CALC BUN/CREAT (test code = 17 RATIO 2235) SODIUM (test code = 2231) 141 MEQ/L POTASSIUM (test code = 2228) 4.4 MEQ/L CHLORIDE (test code = 2215) 102 MEQ/L CARBON DIOXIDE (test code = 28 MEQ/L 2206) CALCIUM (test code = 2209) 9.9 MG/DL PROTEIN, TOTAL (test code = 7.4 G/DL 222) ALBUMIN (test code = 2201) 4.6 G/DL CALC GLOBULIN (test code = 2.8 G/DL 2240) CALC A/G RATIO (test code = 1.6 RATIO 2234) BILIRUBIN, TOTAL (test code = 0.5 MG/DL 2206) ALKALINE PHOSPHATASE (test 116 U/L code = 2204) AST (test code = 2218) 30 U/L ALT (test code = 2219) 46 U/L COMPREHENSIVE METABOLIC [id number] 00:00:00 Test Item Value Reference Range Interpretation Comments GLUCOSE (test code = 2217) 147 MG/DL BUN (test code = 2208) 14 MG/DL CREATININE (test code = 2214) 0.81 MG/DL eGFR (2020 CKD-EPI) (test code 92 ML/MIN/1.73 = 00280) CALC BUN/CREAT (test code = 17 RATIO 2235) SODIUM (test code = 2231) 141 MEQ/L POTASSIUM (test code = 2228) 4.4 MEQ/L CHLORIDE (test code = 2215) 102 MEQ/L CARBON DIOXIDE (test code = 28 MEQ/L 2206) CALCIUM (test code = 2209) 9.9 MG/DL PROTEIN, TOTAL (test code = 7.4 G/DL 2228) ALBUMIN (test code = 2201) 4.6 G/DL CALC GLOBULIN (test code = 2.8 G/DL 2240) CALC A/G RATIO (test code = 1.6 RATIO 2234) BILIRUBIN, TOTAL (test code = 0.5 MG/DL 2206) ALKALINE PHOSPHATASE (test 116 U/L code = 2204) AST (test code = 2218) 30 U/L ALT (test code = 2219) 46 U/L TSH, THIRD [id number] 00:00:00 Test Item Value Reference Range Interpretation Comments TSH, THIRD GENERATION (test code 5.700 UIU/ML = 2821) TSH, THIRD [id number] 00:00:00 Test Item Value Reference Range Interpretation Comments TSH, THIRD GENERATION (test code 5.700 UIU/ML = 2821) TSH, THIRD [id number] 00:00:00 Test Item Value Reference Range Interpretation Comments TSH, THIRD GENERATION (test code 5.700 UIU/ML = 2821) CBC W/AUTO [id number] 00:00:00 Test Item Value Reference Range Interpretation Comments WBC (test code = 1001) 9.8 K/UL RBC (test code = 1002) 4.84 M/UL HEMOGLOBIN (test code = 1003) 13.7 G/DL HEMATOCRIT (test code = 1004) 42.0 % MCV (test code = 1005) 86.8 fL MCH (test code = 1006) 28.3 PG MCHC (test code = 1007) 32.6 G/DL RDW (test code = 1038) 13.2 % NEUTROPHILS (test code = 1008) 63.7 % LYMPHOCYTES (test code = 1010) 29.4 % MONOCYTES (test code = 1011) 3.7 % EOSINOPHILS (test code = 1012) 1.8 % BASOPHILS (test code = 1013) 1.1 % IMMATURE GRANULOCYTES (test 0.3 % code = 1036) NUCLEATED RBCS (test code = 0.0 /100WBC'S 1065) PLATELET COUNT (test code = 316 K/UL 1015) ABSOLUTE NEUTROPHILS (test code 6.22 K/UL = 1066) ABSOLUTE LYMPHOCYTES (test code 2.88 K/UL = 1067) ABSOLUTE MONOCYTES (test code = 0.36 K/UL 1068) ABSOLUTE EOSINOPHILS (test code 0.18 K/UL = 1040) ABSOLUTE BASOPHILS (test code = 0.11 K/UL 1069) ABS IMMATURE GRANULOCYTES (test 0.03 K/UL code = 1020) ABS NUCLEATED RBCS (test code = 0.00 K/UL 29646) CBC W/AUTO [id number] 00:00:00 Test Item Value Reference Range Interpretation Comments WBC (test code = 1001) 9.8 K/UL RBC (test code = 1002) 4.84 M/UL HEMOGLOBIN (test code = 1003) 13.7 G/DL HEMATOCRIT (test code = 1004) 42.0 % MCV (test code = 1005) 86.8 fL MCH (test code = 1006) 28.3 PG MCHC (test code = 1007) 32.6 G/DL RDW (test code = 1038) 13.2 % NEUTROPHILS (test code = 1008) 63.7 % LYMPHOCYTES (test code = 1010) 29.4 % MONOCYTES (test code = 1011) 3.7 % EOSINOPHILS (test code = 1012) 1.8 % BASOPHILS (test code = 1013) 1.1 % IMMATURE GRANULOCYTES (test 0.3 % code = 1036) NUCLEATED RBCS (test code = 0.0 /100WBC'S 1065) PLATELET COUNT (test code = 316 K/UL 1015) ABSOLUTE NEUTROPHILS (test code 6.22 K/UL = 1066) ABSOLUTE LYMPHOCYTES (test code 2.88 K/UL = 1067) ABSOLUTE MONOCYTES (test code = 0.36 K/UL 1068) ABSOLUTE EOSINOPHILS (test code 0.18 K/UL = 1040) ABSOLUTE BASOPHILS (test code = 0.11 K/UL 1069) ABS IMMATURE GRANULOCYTES (test 0.03 K/UL code = 1020) ABS NUCLEATED RBCS (test code = 0.00 K/UL 63532) CBC W/AUTO [id number] 00:00:00 Test Item Value Reference Range Interpretation Comments WBC (test code = 1001) 9.8 K/UL RBC (test code = 1002) 4.84 M/UL HEMOGLOBIN (test code = 1003) 13.7 G/DL HEMATOCRIT (test code = 1004) 42.0 % MCV (test code = 1005) 86.8 fL MCH (test code = 1006) 28.3 PG MCHC (test code = 1007) 32.6 G/DL RDW (test code = 1038) 13.2 % NEUTROPHILS (test code = 1008) 63.7 % LYMPHOCYTES (test code = 1010) 29.4 % MONOCYTES (test code = 1011) 3.7 % EOSINOPHILS (test code = 1012) 1.8 % BASOPHILS (test code = 1013) 1.1 % IMMATURE GRANULOCYTES (test 0.3 % code = 1036) NUCLEATED RBCS (test code = 0.0 /100WBC'S 1065) PLATELET COUNT (test code = 316 K/UL 1015) ABSOLUTE NEUTROPHILS (test code 6.22 K/UL = 1066) ABSOLUTE LYMPHOCYTES (test code 2.88 K/UL = 1067) ABSOLUTE MONOCYTES (test code = 0.36 K/UL 1068) ABSOLUTE EOSINOPHILS (test code 0.18 K/UL = 1040) ABSOLUTE BASOPHILS (test code = 0.11 K/UL 1069) ABS IMMATURE GRANULOCYTES (test 0.03 K/UL code = 1020) ABS NUCLEATED RBCS (test code = 0.00 K/UL 03034) COMPREHENSIVE METABOLIC [id number] 00:00:00 Test Item Value Reference Range Interpretation Comments GLUCOSE (test code = 2217) 147 MG/DL BUN (test code = 2208) 14 MG/DL CREATININE (test code = 2214) 0.81 MG/DL eGFR (2020 CKD-EPI) (test code 92 ML/MIN/1.73 = 87333) CALC BUN/CREAT (test code = 17 RATIO 2235) SODIUM (test code = 2231) 141 MEQ/L POTASSIUM (test code = 2228) 4.4 MEQ/L CHLORIDE (test code = 2215) 102 MEQ/L CARBON DIOXIDE (test code = 28 MEQ/L 2205) CALCIUM (test code = 2209) 9.9 MG/DL PROTEIN, TOTAL (test code = 7.4 G/DL 2228) ALBUMIN (test code = 2201) 4.6 G/DL CALC GLOBULIN (test code = 2.8 G/DL 2240) CALC A/G RATIO (test code = 1.6 RATIO 2234) BILIRUBIN, TOTAL (test code = 0.5 MG/DL 2206) ALKALINE PHOSPHATASE (test 116 U/L code = 2204) AST (test code = 2218) 30 U/L ALT (test code = 2219) 46 U/L COMPREHENSIVE METABOLIC [id number] 00:00:00 Test Item Value Reference Range Interpretation Comments GLUCOSE (test code = 2217) 147 MG/DL BUN (test code = 2208) 14 MG/DL CREATININE (test code = 2214) 0.81 MG/DL eGFR (2020 CKD-EPI) (test code 92 ML/MIN/1.73 = 52303) CALC BUN/CREAT (test code = 17 RATIO 2235) SODIUM (test code = 2231) 141 MEQ/L POTASSIUM (test code = 2228) 4.4 MEQ/L CHLORIDE (test code = 2215) 102 MEQ/L CARBON DIOXIDE (test code = 28 MEQ/L 2205) CALCIUM (test code = 2209) 9.9 MG/DL PROTEIN, TOTAL (test code = 7.4 G/DL 2228) ALBUMIN (test code = 2201) 4.6 G/DL CALC GLOBULIN (test code = 2.8 G/DL 0) CALC A/G RATIO (test code = 1.6 RATIO 2233) BILIRUBIN, TOTAL (test code = 0.5 MG/DL 2206) ALKALINE PHOSPHATASE (test 116 U/L code = 2204) AST (test code = 2218) 30 U/L ALT (test code = 2219) 46 U/L TSH, THIRD [id number] 00:00:00 Test Item Value Reference Range Interpretation Comments TSH, THIRD GENERATION (test code 5.700 UIU/ML = 2821) TSH, THIRD [id number] 00:00:00 Test Item Value Reference Range Interpretation Comments TSH, THIRD GENERATION (test code 5.700 UIU/ML = 2821) TSH, THIRD [id number] 00:00:00 Test Item Value Reference Range Interpretation Comments TSH, THIRD GENERATION (test code 5.700 UIU/ML = 2821) CBC W/AUTO [id number] 00:00:00 Test Item Value Reference Range Interpretation Comments WBC (test code = 1001) 9.8 K/UL RBC (test code = 1002) 4.84 M/UL HEMOGLOBIN (test code = 1003) 13.7 G/DL HEMATOCRIT (test code = 1004) 42.0 % MCV (test code = 1005) 86.8 fL MCH (test code = 1006) 28.3 PG MCHC (test code = 1007) 32.6 G/DL RDW (test code = 1038) 13.2 % NEUTROPHILS (test code = 1008) 63.7 % LYMPHOCYTES (test code = 1010) 29.4 % MONOCYTES (test code = 1011) 3.7 % EOSINOPHILS (test code = 1012) 1.8 % BASOPHILS (test code = 1013) 1.1 % IMMATURE GRANULOCYTES (test 0.3 % code = 1036) NUCLEATED RBCS (test code = 0.0 /100WBC'S 1065) PLATELET COUNT (test code = 316 K/UL 1015) ABSOLUTE NEUTROPHILS (test code 6.22 K/UL = 1066) ABSOLUTE LYMPHOCYTES (test code 2.88 K/UL = 1067) ABSOLUTE MONOCYTES (test code = 0.36 K/UL 1068) ABSOLUTE EOSINOPHILS (test code 0.18 K/UL = 1040) ABSOLUTE BASOPHILS (test code = 0.11 K/UL 1069) ABS IMMATURE GRANULOCYTES (test 0.03 K/UL code = 1020) ABS NUCLEATED RBCS (test code = 0.00 K/UL 23372) CBC W/AUTO [id number] 00:00:00 Test Item Value Reference Range Interpretation Comments WBC (test code = 1001) 9.8 K/UL RBC (test code = 1002) 4.84 M/UL HEMOGLOBIN (test code = 1003) 13.7 G/DL HEMATOCRIT (test code = 1004) 42.0 % MCV (test code = 1005) 86.8 fL MCH (test code = 1006) 28.3 PG MCHC (test code = 1007) 32.6 G/DL RDW (test code = 1038) 13.2 % NEUTROPHILS (test code = 1008) 63.7 % LYMPHOCYTES (test code = 1010) 29.4 % MONOCYTES (test code = 1011) 3.7 % EOSINOPHILS (test code = 1012) 1.8 % BASOPHILS (test code = 1013) 1.1 % IMMATURE GRANULOCYTES (test 0.3 % code = 1036) NUCLEATED RBCS (test code = 0.0 /100WBC'S 1065) PLATELET COUNT (test code = 316 K/UL 1015) ABSOLUTE NEUTROPHILS (test code 6.22 K/UL = 1066) ABSOLUTE LYMPHOCYTES (test code 2.88 K/UL = 1067) ABSOLUTE MONOCYTES (test code = 0.36 K/UL 1068) ABSOLUTE EOSINOPHILS (test code 0.18 K/UL = 1040) ABSOLUTE BASOPHILS (test code = 0.11 K/UL 1069) ABS IMMATURE GRANULOCYTES (test 0.03 K/UL code = 1020) ABS NUCLEATED RBCS (test code = 0.00 K/UL 79625) CBC W/AUTO [id number] 00:00:00 Test Item Value Reference Range Interpretation Comments WBC (test code = 1001) 9.8 K/UL RBC (test code = 1002) 4.84 M/UL HEMOGLOBIN (test code = 1003) 13.7 G/DL HEMATOCRIT (test code = 1004) 42.0 % MCV (test code = 1005) 86.8 fL MCH (test code = 1006) 28.3 PG MCHC (test code = 1007) 32.6 G/DL RDW (test code = 1038) 13.2 % NEUTROPHILS (test code = 1008) 63.7 % LYMPHOCYTES (test code = 1010) 29.4 % MONOCYTES (test code = 1011) 3.7 % EOSINOPHILS (test code = 1012) 1.8 % BASOPHILS (test code = 1013) 1.1 % IMMATURE GRANULOCYTES (test 0.3 % code = 1036) NUCLEATED RBCS (test code = 0.0 /100WBC'S 1065) PLATELET COUNT (test code = 316 K/UL 1015) ABSOLUTE NEUTROPHILS (test code 6.22 K/UL = 1066) ABSOLUTE LYMPHOCYTES (test code 2.88 K/UL = 1067) ABSOLUTE MONOCYTES (test code = 0.36 K/UL 1068) ABSOLUTE EOSINOPHILS (test code 0.18 K/UL = 1040) ABSOLUTE BASOPHILS (test code = 0.11 K/UL 1069) ABS IMMATURE GRANULOCYTES (test 0.03 K/UL code = 1020) ABS NUCLEATED RBCS (test code = 0.00 K/UL 37718) COMPREHENSIVE METABOLIC [id number] 00:00:00 Test Item Value Reference Range Interpretation Comments GLUCOSE (test code = 2217) 147 MG/DL BUN (test code = 2208) 14 MG/DL CREATININE (test code = 2214) 0.81 MG/DL eGFR (2020 CKD-EPI) (test code 92 ML/MIN/1.73 = 90028) CALC BUN/CREAT (test code = 17 RATIO 2235) SODIUM (test code = 2231) 141 MEQ/L POTASSIUM (test code = 2228) 4.4 MEQ/L CHLORIDE (test code = 2215) 102 MEQ/L CARBON DIOXIDE (test code = 28 MEQ/L 2205) CALCIUM (test code = 2209) 9.9 MG/DL PROTEIN, TOTAL (test code = 7.4 G/DL 2228) ALBUMIN (test code = 2201) 4.6 G/DL CALC GLOBULIN (test code = 2.8 G/DL 2240) CALC A/G RATIO (test code = 1.6 RATIO 2234) BILIRUBIN, TOTAL (test code = 0.5 MG/DL 2206) ALKALINE PHOSPHATASE (test 116 U/L code = 2204) AST (test code = 2218) 30 U/L ALT (test code = 2219) 46 U/L COMPREHENSIVE METABOLIC [id number] 00:00:00 Test Item Value Reference Range Interpretation Comments GLUCOSE (test code = 2217) 147 MG/DL BUN (test code = 2208) 14 MG/DL CREATININE (test code = 2214) 0.81 MG/DL eGFR (2020 CKD-EPI) (test code 92 ML/MIN/1.73 = 87253) CALC BUN/CREAT (test code = 17 RATIO 2235) SODIUM (test code = 2231) 141 MEQ/L POTASSIUM (test code = 2228) 4.4 MEQ/L CHLORIDE (test code = 2215) 102 MEQ/L CARBON DIOXIDE (test code = 28 MEQ/L 2205) CALCIUM (test code = 2209) 9.9 MG/DL PROTEIN, TOTAL (test code = 7.4 G/DL 2228) ALBUMIN (test code = 2201) 4.6 G/DL CALC GLOBULIN (test code = 2.8 G/DL 2240) CALC A/G RATIO (test code = 1.6 RATIO 4) BILIRUBIN, TOTAL (test code = 0.5 MG/DL 2206) ALKALINE PHOSPHATASE (test 116 U/L code = 2204) AST (test code = 2218) 30 U/L ALT (test code = 2219) 46 U/L TSH, THIRD [id number] 00:00:00 Test Item Value Reference Range Interpretation Comments TSH, THIRD GENERATION (test code 5.700 UIU/ML = 2821) TSH, THIRD [id number] 00:00:00 Test Item Value Reference Range Interpretation Comments TSH, THIRD GENERATION (test code 5.700 UIU/ML = 2821) TSH, THIRD [id number] 00:00:00 Test Item Value Reference Range Interpretation Comments TSH, THIRD GENERATION (test code 5.700 UIU/ML = 2821) VAGINAL PATHOGENS DNA [id number] 13:24:20 Test Item Value Reference Range Interpretation Comments CHRISTIAN SPECIES (test NEGATIVE NEGATIVE code = ) G. VAGINALIS (test POSITIVE NEGATIVE A code = ) T. VAGINALIS (test NEGATIVE NEGATIVE UNLESS O THERWISE code = ) INDICATED, ALL TESTING PERFORMED [facility] PATHOLOGY [facility], [facility]. [address] [place] [address] 4 LABORATORY DIRE CTOR: Milagro ERICIA NUMBER [id number] [place] [id number] VAGINAL PATHOGENS DNA [id number] 00:00:00 Test Item Value Reference Range Interpretation Comments CHRISTIAN SPECIES (test code = 22831) NEGATIVE G. VAGINALIS (test code = 99534) POSITIVE T. VAGINALIS (test code = 34781) NEGATIVE VAGINAL PATHOGENS DNA [id number] 00:00:00 Test Item Value Reference Range Interpretation Comments CHRISTIAN SPECIES (test code = 14188) NEGATIVE G. VAGINALIS (test code = 88262) POSITIVE T. VAGINALIS (test code = 02529) NEGATIVE VAGINAL PATHOGENS DNA [id number] 00:00:00 Test Item Value Reference Range Interpretation Comments CHRISTIAN SPECIES (test code = 03128) NEGATIVE G. VAGINALIS (test code = 77770) POSITIVE T. VAGINALIS (test code = 04108) NEGATIVE VAGINAL PATHOGENS DNA [id number] 00:00:00 Test Item Value Reference Range Interpretation Comments CHRISTIAN SPECIES (test code = 47932) NEGATIVE G. VAGINALIS (test code = 91486) POSITIVE T. VAGINALIS (test code = 92889) NEGATIVE VAGINAL PATHOGENS DNA [id number] 00:00:00 Test Item Value Reference Range Interpretation Comments CHRISTIAN SPECIES (test code = 29399) NEGATIVE G. VAGINALIS (test code = 12525) POSITIVE T. VAGINALIS (test code = 32015) NEGATIVE VAGINAL PATHOGENS DNA [id number] 00:00:00 Test Item Value Reference Range Interpretation Comments CHRISTIAN SPECIES (test code = 22853) NEGATIVE G. VAGINALIS (test code = 71159) POSITIVE T. VAGINALIS (test code = 84102) NEGATIVE VAGINAL PATHOGENS DNA [id number] 00:00:00 Test Item Value Reference Range Interpretation Comments CHRISTIAN SPECIES (test code = 70868) NEGATIVE G. VAGINALIS (test code = 11025) POSITIVE T. VAGINALIS (test code = 56058) NEGATIVE VAGINAL PATHOGENS DNA [id number] 00:00:00 Test Item Value Reference Range Interpretation Comments CHRISTIAN SPECIES (test code = 06817) NEGATIVE G. VAGINALIS (test code = 67999) POSITIVE T. VAGINALIS (test code = 13084) NEGATIVE VAGINAL PATHOGENS DNA [id number] 00:00:00 Test Item Value Reference Range Interpretation Comments CHRISTIAN SPECIES (test code = 97245) NEGATIVE G. VAGINALIS (test code = 44653) POSITIVE T. VAGINALIS (test code = 94206) NEGATIVE VAGINAL PATHOGENS DNA [id number] 00:00:00 Test Item Value Reference Range Interpretation Comments CHRISTIAN SPECIES (test code = 71334) NEGATIVE G. VAGINALIS (test code = 28982) POSITIVE T. VAGINALIS (test code = 65091) NEGATIVE VAGINAL PATHOGENS DNA [id number] 00:00:00 Test Item Value Reference Range Interpretation Comments CHRISTIAN SPECIES (test code = 92820) NEGATIVE G. VAGINALIS (test code = 18384) POSITIVE T. VAGINALIS (test code = 27278) NEGATIVE VAGINAL PATHOGENS DNA [id number] 00:00:00 Test Item Value Reference Range Interpretation Comments CHRISTIAN SPECIES (test code = 89144) NEGATIVE G. VAGINALIS (test code = 30342) POSITIVE T. VAGINALIS (test code = 22801) NEGATIVE VAGINAL PATHOGENS DNA [id number] 00:00:00 Test Item Value Reference Range Interpretation Comments CHRISTIAN SPECIES (test code = 67435) NEGATIVE G. VAGINALIS (test code = 32247) POSITIVE T. VAGINALIS (test code = 73535) NEGATIVE VAGINAL PATHOGENS DNA [id number] 00:00:00 Test Item Value Reference Range Interpretation Comments CHRISTIAN SPECIES (test code = 35737) NEGATIVE G. VAGINALIS (test code = 99064) POSITIVE T. VAGINALIS (test code = 50516) NEGATIVE VAGINAL PATHOGENS DNA [id number] 00:00:00 Test Item Value Reference Range Interpretation Comments CHRISTIAN SPECIES (test code = 15870) NEGATIVE G. VAGINALIS (test code = 04859) POSITIVE T. VAGINALIS (test code = 68133) NEGATIVE VAGINAL PATHOGENS DNA [id number] 00:00:00 Test Item Value Reference Range Interpretation Comments CHRISTIAN SPECIES (test code = 60971) NEGATIVE G. VAGINALIS (test code = 87682) POSITIVE T. VAGINALIS (test code = 27741) NEGATIVE VAGINAL PATHOGENS DNA [id number] 00:00:00 Test Item Value Reference Range Interpretation Comments CHRISTIAN SPECIES (test code = 86302) NEGATIVE G. VAGINALIS (test code = 34518) POSITIVE T. VAGINALIS (test code = 95624) NEGATIVE VAGINAL PATHOGENS DNA [id number] 00:00:00 Test Item Value Reference Range Interpretation Comments CHRISTIAN SPECIES (test code = 05633) NEGATIVE G. VAGINALIS (test code = 02445) POSITIVE T. VAGINALIS (test code = 75629) NEGATIVE VAGINAL PATHOGENS DNA [id number] 00:00:00 Test Item Value Reference Range Interpretation Comments CHRISTIAN SPECIES (test code = 01024) NEGATIVE G. VAGINALIS (test code = 58751) POSITIVE T. VAGINALIS (test code = 00483) NEGATIVE VAGINAL PATHOGENS DNA [id number] 00:00:00 Test Item Value Reference Range Interpretation Comments CHRISTIAN SPECIES (test code = ) NEGATIVE G. VAGINALIS (test code = 27556) POSITIVE T. VAGINALIS (test code = 79617) NEGATIVE COMPREHENSIVE METABOLIC [id number] 00:00:00 Test Item Value Reference Range Interpretation Comments GLUCOSE (test code = 2217) 85 MG/DL BUN (test code = 2208) 11 MG/DL CREATININE (test code = 2214) 0.74 MG/DL eGFR AMER. (test code 116 ML/MIN/1.73 = 86096) eGFR NON- AMER. (test 100 ML/MIN/1.73 code = 60633) CALC BUN/CREAT (test code = 15 RATIO 2235) SODIUM (test code = 2231) 142 MEQ/L POTASSIUM (test code = 2228) 5.3 MEQ/L CHLORIDE (test code = 2215) 101 MEQ/L CARBON DIOXIDE (test code = 25 MEQ/L 2205) CALCIUM (test code = 2209) 10.0 MG/DL PROTEIN, TOTAL (test code = 7.9 G/DL 2228) ALBUMIN (test code = 2201) 5.0 G/DL CALC GLOBULIN (test code = 2.9 G/DL 2240) CALC A/G RATIO (test code = 1.7 RATIO 2234) BILIRUBIN, TOTAL (test code = 0.8 MG/DL 2206) ALKALINE PHOSPHATASE (test 112 U/L code = 2204) AST (test code = 2218) 25 U/L ALT (test code = 2219) 35 U/L CULTURE, [id number] 00:00:00 Test Item Value Reference Range Interpretation Comments CULTURE, URINE (test SPECIMEN NUMBER: code = 49422) [id number] COMPREHENSIVE METABOLIC [id number] 00:00:00 Test Item Value Reference Range Interpretation Comments GLUCOSE (test code = 2217) 85 MG/DL BUN (test code = 2208) 11 MG/DL CREATININE (test code = 2214) 0.74 MG/DL eGFR AMER. (test code 116 ML/MIN/1.73 = 69850) eGFR NON- AMER. (test 100 ML/MIN/1.73 code = 49241) CALC BUN/CREAT (test code = 15 RATIO 2235) SODIUM (test code = 2231) 142 MEQ/L POTASSIUM (test code = 2228) 5.3 MEQ/L CHLORIDE (test code = 2215) 101 MEQ/L CARBON DIOXIDE (test code = 25 MEQ/L 220) CALCIUM (test code = 2209) 10.0 MG/DL PROTEIN, TOTAL (test code = 7.9 G/DL 2228) ALBUMIN (test code = 2201) 5.0 G/DL CALC GLOBULIN (test code = 2.9 G/DL 2240) CALC A/G RATIO (test code = 1.7 RATIO 2234) BILIRUBIN, TOTAL (test code = 0.8 MG/DL 2206) ALKALINE PHOSPHATASE (test 112 U/L code = 2204) AST (test code = 2218) 25 U/L ALT (test code = 2219) 35 U/L COMPREHENSIVE METABOLIC [id number] 00:00:00 Test Item Value Reference Range Interpretation Comments GLUCOSE (test code = 2217) 85 MG/DL BUN (test code = 2208) 11 MG/DL CREATININE (test code = 2214) 0.74 MG/DL eGFR AMER. (test code 116 ML/MIN/1.73 = 54490) eGFR NON- AMER. (test 100 ML/MIN/1.73 code = 88576) CALC BUN/CREAT (test code = 15 RATIO 2235) SODIUM (test code = 2231) 142 MEQ/L POTASSIUM (test code = 2228) 5.3 MEQ/L CHLORIDE (test code = 2215) 101 MEQ/L CARBON DIOXIDE (test code = 25 MEQ/L 220) CALCIUM (test code = 2209) 10.0 MG/DL PROTEIN, TOTAL (test code = 7.9 G/DL 2228) ALBUMIN (test code = 2201) 5.0 G/DL CALC GLOBULIN (test code = 2.9 G/DL 2240) CALC A/G RATIO (test code = 1.7 RATIO 2234) BILIRUBIN, TOTAL (test code = 0.8 MG/DL 2206) ALKALINE PHOSPHATASE (test 112 U/L code = 2204) AST (test code = 2218) 25 U/L ALT (test code = 2219) 35 U/L CULTURE, [id number] 00:00:00 Test Item Value Reference Range Interpretation Comments CULTURE, URINE (test SPECIMEN NUMBER: code = 96282) [id number] CULTURE, [id number] 00:00:00 Test Item Value Reference Range Interpretation Comments CULTURE, URINE (test SPECIMEN NUMBER: code = 76238) [id number] COMPREHENSIVE METABOLIC [id number] 00:00:00 Test Item Value Reference Range Interpretation Comments GLUCOSE (test code = 2217) 85 MG/DL BUN (test code = 2208) 11 MG/DL CREATININE (test code = 2214) 0.74 MG/DL eGFR AMER. (test code 116 ML/MIN/1.73 = 45883) eGFR NON- AMER. (test 100 ML/MIN/1.73 code = 62687) CALC BUN/CREAT (test code = 15 RATIO 2235) SODIUM (test code = 2231) 142 MEQ/L POTASSIUM (test code = 2228) 5.3 MEQ/L CHLORIDE (test code = 2215) 101 MEQ/L CARBON DIOXIDE (test code = 25 MEQ/L 2205) CALCIUM (test code = 2209) 10.0 MG/DL PROTEIN, TOTAL (test code = 7.9 G/DL 2228) ALBUMIN (test code = 2201) 5.0 G/DL CALC GLOBULIN (test code = 2.9 G/DL 2240) CALC A/G RATIO (test code = 1.7 RATIO 2234) BILIRUBIN, TOTAL (test code = 0.8 MG/DL 2206) ALKALINE PHOSPHATASE (test 112 U/L code = 2204) AST (test code = 2218) 25 U/L ALT (test code = 2219) 35 U/L CULTURE, [id number] 00:00:00 Test Item Value Reference Range Interpretation Comments CULTURE, URINE (test SPECIMEN NUMBER: code = 66083) [id number] COMPREHENSIVE METABOLIC [id number] 00:00:00 Test Item Value Reference Range Interpretation Comments GLUCOSE (test code = 2217) 85 MG/DL BUN (test code = 2208) 11 MG/DL CREATININE (test code = 2214) 0.74 MG/DL eGFR AMER. (test code 116 ML/MIN/1.73 = 63147) eGFR NON- AMER. (test 100 ML/MIN/1.73 code = 20039) CALC BUN/CREAT (test code = 15 RATIO 2235) SODIUM (test code = 2231) 142 MEQ/L POTASSIUM (test code = 2228) 5.3 MEQ/L CHLORIDE (test code = 2215) 101 MEQ/L CARBON DIOXIDE (test code = 25 MEQ/L 220) CALCIUM (test code = 2209) 10.0 MG/DL PROTEIN, TOTAL (test code = 7.9 G/DL 2228) ALBUMIN (test code = 2201) 5.0 G/DL CALC GLOBULIN (test code = 2.9 G/DL 2240) CALC A/G RATIO (test code = 1.7 RATIO 2234) BILIRUBIN, TOTAL (test code = 0.8 MG/DL 2206) ALKALINE PHOSPHATASE (test 112 U/L code = 2204) AST (test code = 2218) 25 U/L ALT (test code = 2219) 35 U/L COMPREHENSIVE METABOLIC [id number] 00:00:00 Test Item Value Reference Range Interpretation Comments GLUCOSE (test code = 2217) 85 MG/DL BUN (test code = 2208) 11 MG/DL CREATININE (test code = 2214) 0.74 MG/DL eGFR AMER. (test code 116 ML/MIN/1.73 = 28500) eGFR NON- AMER. (test 100 ML/MIN/1.73 code = 27727) CALC BUN/CREAT (test code = 15 RATIO 2235) SODIUM (test code = 2231) 142 MEQ/L POTASSIUM (test code = 2228) 5.3 MEQ/L CHLORIDE (test code = 2215) 101 MEQ/L CARBON DIOXIDE (test code = 25 MEQ/L 220) CALCIUM (test code = 2209) 10.0 MG/DL PROTEIN, TOTAL (test code = 7.9 G/DL 2228) ALBUMIN (test code = 2201) 5.0 G/DL CALC GLOBULIN (test code = 2.9 G/DL 2240) CALC A/G RATIO (test code = 1.7 RATIO 2234) BILIRUBIN, TOTAL (test code = 0.8 MG/DL 2206) ALKALINE PHOSPHATASE (test 112 U/L code = 2204) AST (test code = 2218) 25 U/L ALT (test code = 2219) 35 U/L CULTURE, [id number] 00:00:00 Test Item Value Reference Range Interpretation Comments CULTURE, URINE (test SPECIMEN NUMBER: code = 42184) [id number] CULTURE, [id number] 00:00:00 Test Item Value Reference Range Interpretation Comments CULTURE, URINE (test SPECIMEN NUMBER: code = 68451) [id number] COMPREHENSIVE METABOLIC [id number] 00:00:00 Test Item Value Reference Range Interpretation Comments GLUCOSE (test code = 2217) 85 MG/DL BUN (test code = 2208) 11 MG/DL CREATININE (test code = 2214) 0.74 MG/DL eGFR AMER. (test code 116 ML/MIN/1.73 = 83057) eGFR NON- AMER. (test 100 ML/MIN/1.73 code = 39422) CALC BUN/CREAT (test code = 15 RATIO 2235) SODIUM (test code = 2231) 142 MEQ/L POTASSIUM (test code = 2228) 5.3 MEQ/L CHLORIDE (test code = 2215) 101 MEQ/L CARBON DIOXIDE (test code = 25 MEQ/L 2205) CALCIUM (test code = 2209) 10.0 MG/DL PROTEIN, TOTAL (test code = 7.9 G/DL 2228) ALBUMIN (test code = 2201) 5.0 G/DL CALC GLOBULIN (test code = 2.9 G/DL 2240) CALC A/G RATIO (test code = 1.7 RATIO 2234) BILIRUBIN, TOTAL (test code = 0.8 MG/DL 2206) ALKALINE PHOSPHATASE (test 112 U/L code = 2204) AST (test code = 2218) 25 U/L ALT (test code = 2219) 35 U/L COMPREHENSIVE METABOLIC [id number] 00:00:00 Test Item Value Reference Range Interpretation Comments GLUCOSE (test code = 2217) 85 MG/DL BUN (test code = 2208) 11 MG/DL CREATININE (test code = 2214) 0.74 MG/DL eGFR AMER. (test code 116 ML/MIN/1.73 = 33614) eGFR NON- AMER. (test 100 ML/MIN/1.73 code = 49619) CALC BUN/CREAT (test code = 15 RATIO 2235) SODIUM (test code = 2231) 142 MEQ/L POTASSIUM (test code = 2228) 5.3 MEQ/L CHLORIDE (test code = 2215) 101 MEQ/L CARBON DIOXIDE (test code = 25 MEQ/L 2205) CALCIUM (test code = 2209) 10.0 MG/DL PROTEIN, TOTAL (test code = 7.9 G/DL 2228) ALBUMIN (test code = 2201) 5.0 G/DL CALC GLOBULIN (test code = 2.9 G/DL 2239) CALC A/G RATIO (test code = 1.7 RATIO 2233) BILIRUBIN, TOTAL (test code = 0.8 MG/DL 2206) ALKALINE PHOSPHATASE (test 112 U/L code = 2204) AST (test code = 2218) 25 U/L ALT (test code = 2219) 35 U/L CULTURE, [id number] 00:00:00 Test Item Value Reference Range Interpretation Comments CULTURE, URINE (test SPECIMEN NUMBER: code = 40319) [id number] CULTURE, [id number] 00:00:00 Test Item Value Reference Range Interpretation Comments CULTURE, URINE (test SPECIMEN NUMBER: code = 36670) [id number] COMPREHENSIVE METABOLIC [id number] 00:00:00 Test Item Value Reference Range Interpretation Comments GLUCOSE (test code = 2217) 85 MG/DL BUN (test code = 2208) 11 MG/DL CREATININE (test code = 2214) 0.74 MG/DL eGFR AMER. (test code 116 ML/MIN/1.73 = 46750) eGFR NON- AMER. (test 100 ML/MIN/1.73 code = 02441) CALC BUN/CREAT (test code = 15 RATIO 2235) SODIUM (test code = 2231) 142 MEQ/L POTASSIUM (test code = 2228) 5.3 MEQ/L CHLORIDE (test code = 2215) 101 MEQ/L CARBON DIOXIDE (test code = 25 MEQ/L 220) CALCIUM (test code = 2209) 10.0 MG/DL PROTEIN, TOTAL (test code = 7.9 G/DL 222) ALBUMIN (test code = 2201) 5.0 G/DL CALC GLOBULIN (test code = 2.9 G/DL 2240) CALC A/G RATIO (test code = 1.7 RATIO 2234) BILIRUBIN, TOTAL (test code = 0.8 MG/DL 2206) ALKALINE PHOSPHATASE (test 112 U/L code = 2204) AST (test code = 2218) 25 U/L ALT (test code = 2219) 35 U/L COMPREHENSIVE METABOLIC [id number] 00:00:00 Test Item Value Reference Range Interpretation Comments GLUCOSE (test code = 2217) 85 MG/DL BUN (test code = 2208) 11 MG/DL CREATININE (test code = 2214) 0.74 MG/DL eGFR AMER. (test code 116 ML/MIN/1.73 = 19090) eGFR NON- AMER. (test 100 ML/MIN/1.73 code = 67152) CALC BUN/CREAT (test code = 15 RATIO 2235) SODIUM (test code = 2231) 142 MEQ/L POTASSIUM (test code = 2228) 5.3 MEQ/L CHLORIDE (test code = 2215) 101 MEQ/L CARBON DIOXIDE (test code = 25 MEQ/L 2205) CALCIUM (test code = 2209) 10.0 MG/DL PROTEIN, TOTAL (test code = 7.9 G/DL 2228) ALBUMIN (test code = 2201) 5.0 G/DL CALC GLOBULIN (test code = 2.9 G/DL 2240) CALC A/G RATIO (test code = 1.7 RATIO 2234) BILIRUBIN, TOTAL (test code = 0.8 MG/DL 7) ALKALINE PHOSPHATASE (test 112 U/L code = 2204) AST (test code = 2218) 25 U/L ALT (test code = 2219) 35 U/L CULTURE, [id number] 00:00:00 Test Item Value Reference Range Interpretation Comments CULTURE, URINE (test SPECIMEN NUMBER: code = 02499) [id number] CULTURE, [id number] 00:00:00 Test Item Value Reference Range Interpretation Comments CULTURE, URINE (test SPECIMEN NUMBER: code = 71640) [id number] CHLAMYDIA, AMPLIFIED, [id number] 00:00:00 Test Item Value Reference Range Interpretation Comments CHLAMYDIA, NAAT (test code = 46655) NEGATIVE GC, AMPLIFIED, [id number] 00:00:00 Test Item Value Reference Range Interpretation Comments GONORRHEA, NAAT (test code = 48721) NEGATIVE CHLAMYDIA, AMPLIFIED, [id number] 00:00:00 Test Item Value Reference Range Interpretation Comments CHLAMYDIA, NAAT (test code = 42923) NEGATIVE CHLAMYDIA, AMPLIFIED, [id number] 00:00:00 Test Item Value Reference Range Interpretation Comments CHLAMYDIA, NAAT (test code = 88717) NEGATIVE GC, AMPLIFIED, [id number] 00:00:00 Test Item Value Reference Range Interpretation Comments GONORRHEA, NAAT (test code = 22400) NEGATIVE GC, AMPLIFIED, [id number] 00:00:00 Test Item Value Reference Range Interpretation Comments GONORRHEA, NAAT (test code = 09568) NEGATIVE CHLAMYDIA, AMPLIFIED, [id number] 00:00:00 Test Item Value Reference Range Interpretation Comments CHLAMYDIA, NAAT (test code = 65805) NEGATIVE CHLAMYDIA, AMPLIFIED, [id number] 00:00:00 Test Item Value Reference Range Interpretation Comments CHLAMYDIA, NAAT (test code = 32448) NEGATIVE CHLAMYDIA, AMPLIFIED, [id number] 00:00:00 Test Item Value Reference Range Interpretation Comments CHLAMYDIA, NAAT (test code = 72118) NEGATIVE GC, AMPLIFIED, [id number] 00:00:00 Test Item Value Reference Range Interpretation Comments GONORRHEA, NAAT (test code = 24698) NEGATIVE GC, AMPLIFIED, [id number] 00:00:00 Test Item Value Reference Range Interpretation Comments GONORRHEA, NAAT (test code = 65130) NEGATIVE GC, AMPLIFIED, [id number] 00:00:00 Test Item Value Reference Range Interpretation Comments GONORRHEA, NAAT (test code = 37558) NEGATIVE CHLAMYDIA, AMPLIFIED, [id number] 00:00:00 Test Item Value Reference Range Interpretation Comments CHLAMYDIA, NAAT (test code = 96913) NEGATIVE CHLAMYDIA, AMPLIFIED, [id number] 00:00:00 Test Item Value Reference Range Interpretation Comments CHLAMYDIA, NAAT (test code = 55014) NEGATIVE GC, AMPLIFIED, [id number] 00:00:00 Test Item Value Reference Range Interpretation Comments GONORRHEA, NAAT (test code = 54224) NEGATIVE GC, AMPLIFIED, [id number] 00:00:00 Test Item Value Reference Range Interpretation Comments GONORRHEA, NAAT (test code = 50598) NEGATIVE CHLAMYDIA, AMPLIFIED, [id number] 00:00:00 Test Item Value Reference Range Interpretation Comments CHLAMYDIA, NAAT (test code = 14677) NEGATIVE CHLAMYDIA, AMPLIFIED, [id number] 00:00:00 Test Item Value Reference Range Interpretation Comments CHLAMYDIA, NAAT (test code = 18086) NEGATIVE GC, AMPLIFIED, [id number] 00:00:00 Test Item Value Reference Range Interpretation Comments GONORRHEA, NAAT (test code = 87239) NEGATIVE GC, AMPLIFIED, [id number] 00:00:00 Test Item Value Reference Range Interpretation Comments GONORRHEA, NAAT (test code = 00807) NEGATIVE CULTURE, [id number] 00:00:00 Test Item Value Reference Range Interpretation Comments CULTURE, URINE (test SPECIMEN NUMBER: code = 26495) [id number] CULTURE, [id number] 00:00:00 Test Item Value Reference Range Interpretation Comments CULTURE, URINE (test SPECIMEN NUMBER: code = 17895) [id number] CULTURE, [id number] 00:00:00 Test Item Value Reference Range Interpretation Comments CULTURE, URINE (test SPECIMEN NUMBER: code = 07646) [id number] CULTURE, [id number] 00:00:00 Test Item Value Reference Range Interpretation Comments CULTURE, URINE (test SPECIMEN NUMBER: code = 74525) [id number] CULTURE, [id number] 00:00:00 Test Item Value Reference Range Interpretation Comments CULTURE, URINE (test SPECIMEN NUMBER: code = 16197) [id number] CULTURE, [id number] 00:00:00 Test Item Value Reference Range Interpretation Comments CULTURE, URINE (test SPECIMEN NUMBER: code = 62147) [id number] CULTURE, [id number] 00:00:00 Test Item Value Reference Range Interpretation Comments CULTURE, URINE (test SPECIMEN NUMBER: code = 04483) [id number] CULTURE, [id number] 00:00:00 Test Item Value Reference Range Interpretation Comments CULTURE, URINE (test SPECIMEN NUMBER: code = 15409) [id number] CULTURE, [id number] 00:00:00 Test Item Value Reference Range Interpretation Comments CULTURE, URINE (test SPECIMEN NUMBER: code = 00640) [id number] CULTURE, [id number] 00:00:00 Test Item Value Reference Range Interpretation Comments CULTURE, URINE (test SPECIMEN NUMBER: code = 61390) [id number] VAGINAL PATHOGENS DNA [id number] 00:00:00 Test Item Value Reference Range Interpretation Comments CHRISTIAN SPECIES (test code = ) NEGATIVE G. VAGINALIS (test code = ) NEGATIVE T. VAGINALIS (test code = ) NEGATIVE HIV AB/AG COMBO RFLX [id number] 00:00:00 Test Item Value Reference Range Interpretation Comments HIV 1/2 4TH GEN, RFLX CONF (test NON-REACTIVE code = 3514) ACUTE HEPATITIS [id number] 00:00:00 Test Item Value Reference Range Interpretation Comments HEPATITIS A IgM (test code = NON-REACTIVE 49083) HEPATITIS B CORE IgM (test code NON-REACTIVE = 4644) HEPATITIS B SURF AG (test code = NON-REACTIVE 2739) HEPATITIS C ANTIBODY (test code NON-REACTIVE = 4675) INTERPRETATION HEPATITIS A: (NOTE) (test code = 2552) INTERPRETATION HEPATITIS B: (NOTE) (test code = 00721) INTERPRETATION HEPATITIS C: (NOTE) (test code = 26556) [id number] 00:00:00 Test Item Value Reference Range Interpretation Comments RPR RESULT (test code = NON-REACTIVE 3501) RPR TITER (test code = 3500) NOT INDIC. TITER [id number] 00:00:00 Test Item Value Reference Range Interpretation Comments RPR RESULT (test code = NON-REACTIVE 3501) RPR TITER (test code = 3500) NOT INDIC. TITER VAGINAL PATHOGENS DNA [id number] 00:00:00 Test Item Value Reference Range Interpretation Comments CHRISTIAN SPECIES (test code = ) NEGATIVE G. VAGINALIS (test code = 39176) NEGATIVE T. VAGINALIS (test code = ) NEGATIVE VAGINAL PATHOGENS DNA [id number] 00:00:00 Test Item Value Reference Range Interpretation Comments CHRISTIAN SPECIES (test code = ) NEGATIVE G. VAGINALIS (test code = 77201) NEGATIVE T. VAGINALIS (test code = 89294) NEGATIVE VAGINAL PATHOGENS DNA [id number] 00:00:00 Test Item Value Reference Range Interpretation Comments CHRISTIAN SPECIES (test code = ) NEGATIVE G. VAGINALIS (test code = 98394) NEGATIVE T. VAGINALIS (test code = 76488) NEGATIVE HIV AB/AG COMBO RFLX [id number] 00:00:00 Test Item Value Reference Range Interpretation Comments HIV 1/2 4TH GEN, RFLX CONF (test NON-REACTIVE code = 3514) HIV AB/AG COMBO RFLX [id number] 00:00:00 Test Item Value Reference Range Interpretation Comments HIV 1/2 4TH GEN, RFLX CONF (test NON-REACTIVE code = 3514) ACUTE HEPATITIS [id number] 00:00:00 Test Item Value Reference Range Interpretation Comments HEPATITIS A IgM (test code = NON-REACTIVE 33356) HEPATITIS B CORE IgM (test code NON-REACTIVE = 4644) HEPATITIS B SURF AG (test code = NON-REACTIVE 2739) HEPATITIS C ANTIBODY (test code NON-REACTIVE = 4675) INTERPRETATION HEPATITIS A: (NOTE) (test code = 2552) INTERPRETATION HEPATITIS B: (NOTE) (test code = 32260) INTERPRETATION HEPATITIS C: (NOTE) (test code = 73438) ACUTE HEPATITIS [id number] 00:00:00 Test Item Value Reference Range Interpretation Comments HEPATITIS A IgM (test code = NON-REACTIVE 61203) HEPATITIS B CORE IgM (test code NON-REACTIVE = 4644) HEPATITIS B SURF AG (test code = NON-REACTIVE 2739) HEPATITIS C ANTIBODY (test code NON-REACTIVE = 4675) INTERPRETATION HEPATITIS A: (NOTE) (test code = 2552) INTERPRETATION HEPATITIS B: (NOTE) (test code = 25617) INTERPRETATION HEPATITIS C: (NOTE) (test code = 05520) [id number] 00:00:00 Test Item Value Reference Range Interpretation Comments RPR RESULT (test code = NON-REACTIVE 3501) RPR TITER (test code = 3500) NOT INDIC. TITER [id number] 00:00:00 Test Item Value Reference Range Interpretation Comments RPR RESULT (test code = NON-REACTIVE 3501) RPR TITER (test code = 3500) NOT INDIC. TITER [id number] 00:00:00 Test Item Value Reference Range Interpretation Comments RPR RESULT (test code = NON-REACTIVE 3501) RPR TITER (test code = 3500) NOT INDIC. TITER HIV AB/AG COMBO RFLX [id number] 00:00:00 Test Item Value Reference Range Interpretation Comments HIV 1/2 4TH GEN, RFLX CONF (test NON-REACTIVE code = 3514) VAGINAL PATHOGENS DNA [id number] 00:00:00 Test Item Value Reference Range Interpretation Comments CHRISTIAN SPECIES (test code = ) NEGATIVE G. VAGINALIS (test code = 59469) NEGATIVE T. VAGINALIS (test code = 79238) NEGATIVE ACUTE HEPATITIS [id number] 00:00:00 Test Item Value Reference Range Interpretation Comments HEPATITIS A IgM (test code = NON-REACTIVE 21759) HEPATITIS B CORE IgM (test code NON-REACTIVE = 4644) HEPATITIS B SURF AG (test code = NON-REACTIVE 2739) HEPATITIS C ANTIBODY (test code NON-REACTIVE = 4675) INTERPRETATION HEPATITIS A: (NOTE) (test code = 2552) INTERPRETATION HEPATITIS B: (NOTE) (test code = 20591) INTERPRETATION HEPATITIS C: (NOTE) (test code = 07010) VAGINAL PATHOGENS DNA [id number] 00:00:00 Test Item Value Reference Range Interpretation Comments CHRISTIAN SPECIES (test code = ) NEGATIVE G. VAGINALIS (test code = 30768) NEGATIVE T. VAGINALIS (test code = 47653) NEGATIVE HIV AB/AG COMBO RFLX [id number] 00:00:00 Test Item Value Reference Range Interpretation Comments HIV 1/2 4TH GEN, RFLX CONF (test NON-REACTIVE code = 3514) HIV AB/AG COMBO RFLX [id number] 00:00:00 Test Item Value Reference Range Interpretation Comments HIV 1/2 4TH GEN, RFLX CONF (test NON-REACTIVE code = 3514) ACUTE HEPATITIS [id number] 00:00:00 Test Item Value Reference Range Interpretation Comments HEPATITIS A IgM (test code = NON-REACTIVE 39967) HEPATITIS B CORE IgM (test code NON-REACTIVE = 4644) HEPATITIS B SURF AG (test code = NON-REACTIVE 2739) HEPATITIS C ANTIBODY (test code NON-REACTIVE = 4675) INTERPRETATION HEPATITIS A: (NOTE) (test code = 2552) INTERPRETATION HEPATITIS B: (NOTE) (test code = 74294) INTERPRETATION HEPATITIS C: (NOTE) (test code = 93238) ACUTE HEPATITIS [id number] 00:00:00 Test Item Value Reference Range Interpretation Comments HEPATITIS A IgM (test code = NON-REACTIVE 08747) HEPATITIS B CORE IgM (test code NON-REACTIVE = 4644) HEPATITIS B SURF AG (test code = NON-REACTIVE 2739) HEPATITIS C ANTIBODY (test code NON-REACTIVE = 4675) INTERPRETATION HEPATITIS A: (NOTE) (test code = 2552) INTERPRETATION HEPATITIS B: (NOTE) (test code = 50674) INTERPRETATION HEPATITIS C: (NOTE) (test code = 06148) [id number] 00:00:00 Test Item Value Reference Range Interpretation Comments RPR RESULT (test code = NON-REACTIVE 3501) RPR TITER (test code = 3500) NOT INDIC. TITER [id number] 00:00:00 Test Item Value Reference Range Interpretation Comments RPR RESULT (test code = NON-REACTIVE 3501) RPR TITER (test code = 3500) NOT INDIC. TITER [id number] 00:00:00 Test Item Value Reference Range Interpretation Comments RPR RESULT (test code = NON-REACTIVE 3501) RPR TITER (test code = 3500) NOT INDIC. TITER [id number] 00:00:00 Test Item Value Reference Range Interpretation Comments RPR RESULT (test code = NON-REACTIVE 3501) RPR TITER (test code = 3500) NOT INDIC. TITER [id number] 00:00:00 Test Item Value Reference Range Interpretation Comments RPR RESULT (test code = NON-REACTIVE 3501) RPR TITER (test code = 3500) NOT INDIC. TITER VAGINAL PATHOGENS DNA [id number] 00:00:00 Test Item Value Reference Range Interpretation Comments CHRISTIAN SPECIES (test code = ) NEGATIVE G. VAGINALIS (test code = ) NEGATIVE T. VAGINALIS (test code = ) NEGATIVE VAGINAL PATHOGENS DNA [id number] 00:00:00 Test Item Value Reference Range Interpretation Comments CHRISTIAN SPECIES (test code = 55576) NEGATIVE G. VAGINALIS (test code = 35083) NEGATIVE T. VAGINALIS (test code = 96091) NEGATIVE HIV AB/AG COMBO RFLX [id number] 00:00:00 Test Item Value Reference Range Interpretation Comments HIV 1/2 4TH GEN, RFLX CONF (test NON-REACTIVE code = 3514) HIV AB/AG COMBO RFLX [id number] 00:00:00 Test Item Value Reference Range Interpretation Comments HIV 1/2 4TH GEN, RFLX CONF (test NON-REACTIVE code = 3514) ACUTE HEPATITIS [id number] 00:00:00 Test Item Value Reference Range Interpretation Comments HEPATITIS A IgM (test code = NON-REACTIVE 72290) HEPATITIS B CORE IgM (test code NON-REACTIVE = 4644) HEPATITIS B SURF AG (test code = NON-REACTIVE 2739) HEPATITIS C ANTIBODY (test code NON-REACTIVE = 4675) INTERPRETATION HEPATITIS A: (NOTE) (test code = 2552) INTERPRETATION HEPATITIS B: (NOTE) (test code = 04942) INTERPRETATION HEPATITIS C: (NOTE) (test code = 53388) ACUTE HEPATITIS [id number] 00:00:00 Test Item Value Reference Range Interpretation Comments HEPATITIS A IgM (test code = NON-REACTIVE 29842) HEPATITIS B CORE IgM (test code NON-REACTIVE = 4644) HEPATITIS B SURF AG (test code = NON-REACTIVE 2739) HEPATITIS C ANTIBODY (test code NON-REACTIVE = 4675) INTERPRETATION HEPATITIS A: (NOTE) (test code = 2552) INTERPRETATION HEPATITIS B: (NOTE) (test code = 54015) INTERPRETATION HEPATITIS C: (NOTE) (test code = 33740) [id number] 00:00:00 Test Item Value Reference Range Interpretation Comments RPR RESULT (test code = NON-REACTIVE 3501) RPR TITER (test code = 3500) NOT INDIC. TITER [id number] 00:00:00 Test Item Value Reference Range Interpretation Comments RPR RESULT (test code = NON-REACTIVE 3501) RPR TITER (test code = 3500) NOT INDIC. TITER [id number] 00:00:00 Test Item Value Reference Range Interpretation Comments RPR RESULT (test code = NON-REACTIVE 3501) RPR TITER (test code = 3500) NOT INDIC. TITER VAGINAL PATHOGENS DNA [id number] 00:00:00 Test Item Value Reference Range Interpretation Comments CHRISTIAN SPECIES (test code = ) NEGATIVE G. VAGINALIS (test code = 15962) NEGATIVE T. VAGINALIS (test code = 22911) NEGATIVE VAGINAL PATHOGENS DNA [id number] 00:00:00 Test Item Value Reference Range Interpretation Comments CHRISTIAN SPECIES (test code = ) NEGATIVE G. VAGINALIS (test code = 53333) NEGATIVE T. VAGINALIS (test code = 82118) NEGATIVE HIV AB/AG COMBO RFLX [id number] 00:00:00 Test Item Value Reference Range Interpretation Comments HIV 1/2 4TH GEN, RFLX CONF (test NON-REACTIVE code = 3514) HIV AB/AG COMBO RFLX [id number] 00:00:00 Test Item Value Reference Range Interpretation Comments HIV 1/2 4TH GEN, RFLX CONF (test NON-REACTIVE code = 3514) ACUTE HEPATITIS [id number] 00:00:00 Test Item Value Reference Range Interpretation Comments HEPATITIS A IgM (test code = NON-REACTIVE 48359) HEPATITIS B CORE IgM (test code NON-REACTIVE = 4644) HEPATITIS B SURF AG (test code = NON-REACTIVE 2739) HEPATITIS C ANTIBODY (test code NON-REACTIVE = 4675) INTERPRETATION HEPATITIS A: (NOTE) (test code = 2552) INTERPRETATION HEPATITIS B: (NOTE) (test code = 84706) INTERPRETATION HEPATITIS C: (NOTE) (test code = 93180) ACUTE HEPATITIS [id number] 00:00:00 Test Item Value Reference Range Interpretation Comments HEPATITIS A IgM (test code = NON-REACTIVE 92212) HEPATITIS B CORE IgM (test code NON-REACTIVE = 4644) HEPATITIS B SURF AG (test code = NON-REACTIVE 2739) HEPATITIS C ANTIBODY (test code NON-REACTIVE = 4675) INTERPRETATION HEPATITIS A: (NOTE) (test code = 2552) INTERPRETATION HEPATITIS B: (NOTE) (test code = 35248) INTERPRETATION HEPATITIS C: (NOTE) (test code = 22691) [id number] 00:00:00 Test Item Value Reference Range Interpretation Comments RPR RESULT (test code = NON-REACTIVE 3501) RPR TITER (test code = 3500) NOT INDIC. TITER [id number] 00:00:00 Test Item Value Reference Range Interpretation Comments RPR RESULT (test code = NON-REACTIVE 3501) RPR TITER (test code = 3500) NOT INDIC. TITER [id number] 00:00:00 Test Item Value Reference Range Interpretation Comments RPR RESULT (test code = NON-REACTIVE 3501) RPR TITER (test code = 3500) NOT INDIC. TITER VAGINAL PATHOGENS DNA [id number] 00:00:00 Test Item Value Reference Range Interpretation Comments CHRISTIAN SPECIES (test code = ) NEGATIVE G. VAGINALIS (test code = 93002) POSITIVE T. VAGINALIS (test code = ) NEGATIVE GC AND CHLAMYDIA, AMPLIFIED, [id number] 00:00:00 Test Item Value Reference Range Interpretation Comments GONORRHEA, TMA (test code = 12246) NEGATIVE CHLAMYDIA, TMA (test code = 47897) NEGATIVE HIV AB/AG COMBO RFLX [id number] 00:00:00 Test Item Value Reference Range Interpretation Comments HIV 1/2 4TH GEN, RFLX CONF (test NON-REACTIVE code = 3514) [id number] 00:00:00 Test Item Value Reference Range Interpretation Comments RPR RESULT (test code = NON-REACTIVE 3501) RPR TITER (test code = 3500) NOT INDIC. TITER [id number] 00:00:00 Test Item Value Reference Range Interpretation Comments RPR RESULT (test code = NON-REACTIVE 3501) RPR TITER (test code = 3500) NOT INDIC. TITER VAGINAL PATHOGENS DNA [id number] 00:00:00 Test Item Value Reference Range Interpretation Comments CHRISTIAN SPECIES (test code = ) NEGATIVE G. VAGINALIS (test code = 94412) POSITIVE T. VAGINALIS (test code = 58483) NEGATIVE GC AND CHLAMYDIA, AMPLIFIED, [id number] 00:00:00 Test Item Value Reference Range Interpretation Comments GONORRHEA, TMA (test code = 11229) NEGATIVE CHLAMYDIA, TMA (test code = 73007) NEGATIVE VAGINAL PATHOGENS DNA [id number] 00:00:00 Test Item Value Reference Range Interpretation Comments CHRISTIAN SPECIES (test code = 26074) NEGATIVE G. VAGINALIS (test code = 82537) POSITIVE T. VAGINALIS (test code = 89492) NEGATIVE GC AND CHLAMYDIA, AMPLIFIED, [id number] 00:00:00 Test Item Value Reference Range Interpretation Comments GONORRHEA, TMA (test code = 82477) NEGATIVE CHLAMYDIA, TMA (test code = 27177) NEGATIVE VAGINAL PATHOGENS DNA [id number] 00:00:00 Test Item Value Reference Range Interpretation Comments CHRISTIAN SPECIES (test code = ) NEGATIVE G. VAGINALIS (test code = ) POSITIVE T. VAGINALIS (test code = ) NEGATIVE GC AND CHLAMYDIA, AMPLIFIED, [id number] 00:00:00 Test Item Value Reference Range Interpretation Comments GONORRHEA, TMA (test code = 24001) NEGATIVE CHLAMYDIA, TMA (test code = 36117) NEGATIVE HIV AB/AG COMBO RFLX [id number] 00:00:00 Test Item Value Reference Range Interpretation Comments HIV 1/2 4TH GEN, RFLX CONF (test NON-REACTIVE code = 3514) HIV AB/AG COMBO RFLX [id number] 00:00:00 Test Item Value Reference Range Interpretation Comments HIV 1/2 4TH GEN, RFLX CONF (test NON-REACTIVE code = 3514) [id number] 00:00:00 Test Item Value Reference Range Interpretation Comments RPR RESULT (test code = NON-REACTIVE 3501) RPR TITER (test code = 3500) NOT INDIC. TITER [id number] 00:00:00 Test Item Value Reference Range Interpretation Comments RPR RESULT (test code = NON-REACTIVE 3501) RPR TITER (test code = 3500) NOT INDIC. TITER [id number] 00:00:00 Test Item Value Reference Range Interpretation Comments RPR RESULT (test code = NON-REACTIVE 3501) RPR TITER (test code = 3500) NOT INDIC. TITER HIV AB/AG COMBO RFLX [id number] 00:00:00 Test Item Value Reference Range Interpretation Comments HIV 1/2 4TH GEN, RFLX CONF (test NON-REACTIVE code = 3514) [id number] 00:00:00 Test Item Value Reference Range Interpretation Comments RPR RESULT (test code = NON-REACTIVE 3501) RPR TITER (test code = 3500) NOT INDIC. TITER [id number] 00:00:00 Test Item Value Reference Range Interpretation Comments RPR RESULT (test code = NON-REACTIVE 3501) RPR TITER (test code = 3500) NOT INDIC. TITER VAGINAL PATHOGENS DNA [id number] 00:00:00 Test Item Value Reference Range Interpretation Comments CHRISTIAN SPECIES (test code = ) NEGATIVE G. VAGINALIS (test code = ) POSITIVE T. VAGINALIS (test code = ) NEGATIVE GC AND CHLAMYDIA, AMPLIFIED, [id number] 00:00:00 Test Item Value Reference Range Interpretation Comments GONORRHEA, TMA (test code = 84090) NEGATIVE CHLAMYDIA, TMA (test code = 54210) NEGATIVE VAGINAL PATHOGENS DNA [id number] 00:00:00 Test Item Value Reference Range Interpretation Comments CHRISTIAN SPECIES (test code = ) NEGATIVE G. VAGINALIS (test code = ) POSITIVE T. VAGINALIS (test code = ) NEGATIVE GC AND CHLAMYDIA, AMPLIFIED, [id number] 00:00:00 Test Item Value Reference Range Interpretation Comments GONORRHEA, TMA (test code = 56797) NEGATIVE CHLAMYDIA, TMA (test code = 52940) NEGATIVE HIV AB/AG COMBO RFLX [id number] 00:00:00 Test Item Value Reference Range Interpretation Comments HIV 1/2 4TH GEN, RFLX CONF (test NON-REACTIVE code = 3514) HIV AB/AG COMBO RFLX [id number] 00:00:00 Test Item Value Reference Range Interpretation Comments HIV 1/2 4TH GEN, RFLX CONF (test NON-REACTIVE code = 3514) [id number] 00:00:00 Test Item Value Reference Range Interpretation Comments RPR RESULT (test code = NON-REACTIVE 3501) RPR TITER (test code = 3500) NOT INDIC. TITER [id number] 00:00:00 Test Item Value Reference Range Interpretation Comments RPR RESULT (test code = NON-REACTIVE 3501) RPR TITER (test code = 3500) NOT INDIC. TITER [id number] 00:00:00 Test Item Value Reference Range Interpretation Comments RPR RESULT (test code = NON-REACTIVE 3501) RPR TITER (test code = 3500) NOT INDIC. TITER VAGINAL PATHOGENS DNA [id number] 00:00:00 Test Item Value Reference Range Interpretation Comments CHRISTIAN SPECIES (test code = ) NEGATIVE G. VAGINALIS (test code = ) POSITIVE T. VAGINALIS (test code = ) NEGATIVE VAGINAL PATHOGENS DNA [id number] 00:00:00 Test Item Value Reference Range Interpretation Comments CHRISTIAN SPECIES (test code = ) NEGATIVE G. VAGINALIS (test code = 36028) POSITIVE T. VAGINALIS (test code = ) NEGATIVE GC AND CHLAMYDIA, AMPLIFIED, [id number] 00:00:00 Test Item Value Reference Range Interpretation Comments GONORRHEA, TMA (test code = 58266) NEGATIVE CHLAMYDIA, TMA (test code = 54157) NEGATIVE GC AND CHLAMYDIA, AMPLIFIED, [id number] 00:00:00 Test Item Value Reference Range Interpretation Comments GONORRHEA, TMA (test code = 79775) NEGATIVE CHLAMYDIA, TMA (test code = 19348) NEGATIVE HIV AB/AG COMBO RFLX [id number] 00:00:00 Test Item Value Reference Range Interpretation Comments HIV 1/2 4TH GEN, RFLX CONF (test NON-REACTIVE code = 3514) HIV AB/AG COMBO RFLX [id number] 00:00:00 Test Item Value Reference Range Interpretation Comments HIV 1/2 4TH GEN, RFLX CONF (test NON-REACTIVE code = 3514) [id number] 00:00:00 Test Item Value Reference Range Interpretation Comments RPR RESULT (test code = NON-REACTIVE 3501) RPR TITER (test code = 3500) NOT INDIC. TITER [id number] 00:00:00 Test Item Value Reference Range Interpretation Comments RPR RESULT (test code = NON-REACTIVE 3501) RPR TITER (test code = 3500) NOT INDIC. TITER [id number] 00:00:00 Test Item Value Reference Range Interpretation Comments RPR RESULT (test code = NON-REACTIVE 3501) RPR TITER (test code = 3500) NOT INDIC. TITER VAGINAL PATHOGENS DNA [id number] 00:00:00 Test Item Value Reference Range Interpretation Comments CHRISTIAN SPECIES (test code = ) NEGATIVE G. VAGINALIS (test code = 53439) POSITIVE T. VAGINALIS (test code = 08990) NEGATIVE VAGINAL PATHOGENS DNA [id number] 00:00:00 Test Item Value Reference Range Interpretation Comments CHRISTIAN SPECIES (test code = 20400) NEGATIVE G. VAGINALIS (test code = 03380) POSITIVE T. VAGINALIS (test code = 09177) NEGATIVE GC AND CHLAMYDIA, AMPLIFIED, [id number] 00:00:00 Test Item Value Reference Range Interpretation Comments GONORRHEA, TMA (test code = 48183) NEGATIVE CHLAMYDIA, TMA (test code = 72908) NEGATIVE GC AND CHLAMYDIA, AMPLIFIED, [id number] 00:00:00 Test Item Value Reference Range Interpretation Comments GONORRHEA, TMA (test code = 45009) NEGATIVE CHLAMYDIA, TMA (test code = 72829) NEGATIVE HIV AB/AG COMBO RFLX [id number] 00:00:00 Test Item Value Reference Range Interpretation Comments HIV 1/2 4TH GEN, RFLX CONF (test NON-REACTIVE code = 3514) HIV AB/AG COMBO RFLX [id number] 00:00:00 Test Item Value Reference Range Interpretation Comments HIV 1/2 4TH GEN, RFLX CONF (test NON-REACTIVE code = 3514) [id number] 00:00:00 Test Item Value Reference Range Interpretation Comments RPR RESULT (test code = NON-REACTIVE 3501) RPR TITER (test code = 3500) NOT INDIC. TITER [id number] 00:00:00 Test Item Value Reference Range Interpretation Comments RPR RESULT (test code = NON-REACTIVE 3501) RPR TITER (test code = 3500) NOT INDIC. TITER [id number] 00:00:00 Test Item Value Reference Range Interpretation Comments RPR RESULT (test code = NON-REACTIVE 3501) RPR TITER (test code = 3500) NOT INDIC. TITER BREAST ULTRASOUND [id number] 11:20:46 - DIAG MAMM BILATERAL VIKKI CAD DIGITALBILATERAL FIRST EVER DIGITAL DIAGNOSTIC MAMMOGRAM 3D/2D WITH CAD: 03/12/2018CLINICAL: Abnormal clinical breast exam. Digital breast tomosynthesis was performed inaddition to routine CC and MLO views. Current mammographic images were evaluated by either a [employer] M-Vu or a [employer] ImageChecker CAD (computer aided detection system). No prior exams were available for comparison. The tissue of both breasts is heterogeneously dense. This may lower the sensitivity ofmammography. No suspicious mass, architectural distortion, malignant type calcification, or lymph node abnormality detected. INCOMPLETE ASSESSMENT: ADDITIONAL IMAGING EVALUATION RECOMMENDEDThere is no mammographic evidence of malignancy. Ultrasound to follow.- BREAST ULTRASOUND BILATERALULTRASOUND OF BOTH BREASTS AND BOTH AXILLA: 03/12/2018No prior exams were available for comparison. Color flow and real-time ultrasound of both breasts and both axilla were performed. There is no sonographic abnormality on real-time scanning of both breasts. Specifically, there is no suspicious findings noted in theupper outer quadrant of the right breast at the site of palpated lump.No abnormalities were seen sonographically in either axilla. IMPRESSION: NEGATIVE There is no sonographic evidence of malignancy. Resume annual mammogram screening schedule is recommended. Lay Berg M.D. el/:03/12/2018 11:20:46 Entry: - 03/15/2018 11:10:50Imaging Technologist: Maura DAMON, [employer] [facility]-FWletter sent: BIRADS 1-2 Combo FU Letter Mammogram BI-RADS: 0 Indeterminate Ultrasound BI-RADS: 1 NegativeDIAG MAMM BILATERAL VIKKI CAD [id number] 11:20:46 - DIAG MAMM BILATERAL VIKKI CAD DIGITALBILATERAL FIRST EVER DIGITAL DIAGNOSTIC MAMMOGRAM 3D/2D WITH CAD: 03/12/2018CLINICAL: Abnormal clinical breast exam. Digital breast tomosynthesis was performed inaddition to routine CC and MLO views. Current mammographic images were evaluated by either a [employer] M[employer]u or a [employer] ImageChecker CAD (computer aided detection system). No prior exams were available for comparison. The tissue of both breasts is heterogeneously dense. This may lower the sensitivity ofmammography. No suspicious mass, architectural distortion, malignant type calcification, or lymph node abnormality detected. INCOMPLETE ASSESSMENT: ADDITIONAL IMAGING EVALUATION RECOMMENDEDThere is no mammographic evidence of malignancy. Ultrasound to follow.- BREAST ULTRASOUND BILATERALULTRASOUND OF BOTH BREASTS AND BOTH AXILLA: 03/12/2018No prior exams were available for comparison. Color flow and real-time ultrasound of both breasts and both axilla were performed. There is no sonographic abnormality on real-time scanning of both breasts. Specifically, there is no suspicious findings noted in theupper outer quadrant of the right breast at the site of palpated lump.No abnormalities were seen sonographically in either axilla. IMPRESSION: NEGATIVE There is no sonographic evidence of malignancy. Resume annual mammogram screening schedule is recommended. Lay Berg M.D. el/:03/12/2018 11:20:46 Entry: lc - 03/15/2018 11:10:50Imaging Technologist: Maura DAMON, [employer] [facility]-FWletter sent: BIRADS 1-2 Combo FU Letter Mammogram BI-RADS: 0 Indeterminate Ultrasound BI-RADS: 1 NegativeCULTURE, URINE 2018-03-03 00:00:00 Test Item Value Reference Range Interpretation Comments CULTURE, URINE (test SPECIMEN NUMBER: code = 97578) [id number] CULTURE, [id number] 00:00:00 Test Item Value Reference Range Interpretation Comments CULTURE, URINE (test SPECIMEN NUMBER: code = 94175) [id number] CULTURE, [id number] 00:00:00 Test Item Value Reference Range Interpretation Comments CULTURE, URINE (test SPECIMEN NUMBER: code = 29261) [id number] CULTURE, [id number] 00:00:00 Test Item Value Reference Range Interpretation Comments CULTURE, URINE (test SPECIMEN NUMBER: code = 43680) [id number] CULTURE, [id number] 00:00:00 Test Item Value Reference Range Interpretation Comments CULTURE, URINE (test SPECIMEN NUMBER: code = 94384) [id number] CULTURE, [id number] 00:00:00 Test Item Value Reference Range Interpretation Comments CULTURE, URINE (test SPECIMEN NUMBER: code = 78331) [id number] CULTURE, [id number] 00:00:00 Test Item Value Reference Range Interpretation Comments CULTURE, URINE (test SPECIMEN NUMBER: code = 72408) [id number] CULTURE, [id number] 00:00:00 Test Item Value Reference Range Interpretation Comments CULTURE, URINE (test SPECIMEN NUMBER: code = 85946) [id number] CULTURE, [id number] 00:00:00 Test Item Value Reference Range Interpretation Comments CULTURE, URINE (test SPECIMEN NUMBER: code = 91415) [id number] CULTURE, [id number] 00:00:00 Test Item Value Reference Range Interpretation Comments CULTURE, URINE (test SPECIMEN NUMBER: code = 54954) [id number] URINALYSIS (CULTURE IF INDICATED) [ADDED]2018-02-27 00:00:00 Test Item Value Reference Range Interpretation Comments COLOR (test code = 1501) TEST NOT PERFORMED APPEARANCE (test code = TEST NOT PERFORMED 1502) SPECIFIC GRAVITY (test TEST NOT PERFORMED code = 1503) LEUKOCYTE ESTERASE (test TEST NOT PERFORMED code = 1504) NITRITE (test code = TEST NOT PERFORMED 1505) pH (test code = 1506) TEST NOT PERFORMED PROTEIN (test code = TEST NOT PERFORMED 1507) GLUCOSE (test code = TEST NOT PERFORMED 1508) KETONES (test code = TEST NOT PERFORMED 1509) UROBILINOGEN (test code TEST NOT PERFORMED = 1510) MG/DL BILIRUBIN (test code = TEST NOT PERFORMED 1511) OCCULT BLOOD (test code TEST NOT PERFORMED = 1512) URINALYSIS (CULTURE IF INDICATED) [ADDED]2018-02-27 00:00:00 Test Item Value Reference Range Interpretation Comments COLOR (test code = 1501) TEST NOT PERFORMED APPEARANCE (test code = TEST NOT PERFORMED 1502) SPECIFIC GRAVITY (test TEST NOT PERFORMED code = 1503) LEUKOCYTE ESTERASE (test TEST NOT PERFORMED code = 1504) NITRITE (test code = TEST NOT PERFORMED 1505) pH (test code = 1506) TEST NOT PERFORMED PROTEIN (test code = TEST NOT PERFORMED 1507) GLUCOSE (test code = TEST NOT PERFORMED 1508) KETONES (test code = TEST NOT PERFORMED 1509) UROBILINOGEN (test code TEST NOT PERFORMED = 1510) MG/DL BILIRUBIN (test code = TEST NOT PERFORMED 1511) OCCULT BLOOD (test code TEST NOT PERFORMED = 1512) URINALYSIS (CULTURE IF INDICATED) [ADDED]2018-02-27 00:00:00 Test Item Value Reference Range Interpretation Comments COLOR (test code = 1501) TEST NOT PERFORMED APPEARANCE (test code = TEST NOT PERFORMED 1502) SPECIFIC GRAVITY (test TEST NOT PERFORMED code = 1503) LEUKOCYTE ESTERASE (test TEST NOT PERFORMED code = 1504) NITRITE (test code = TEST NOT PERFORMED 1505) pH (test code = 1506) TEST NOT PERFORMED PROTEIN (test code = TEST NOT PERFORMED 1507) GLUCOSE (test code = TEST NOT PERFORMED 1508) KETONES (test code = TEST NOT PERFORMED 1509) UROBILINOGEN (test code TEST NOT PERFORMED = 1510) MG/DL BILIRUBIN (test code = TEST NOT PERFORMED 1511) OCCULT BLOOD (test code TEST NOT PERFORMED = 1512) URINALYSIS (CULTURE IF INDICATED) [ADDED]2018-02-27 00:00:00 Test Item Value Reference Range Interpretation Comments COLOR (test code = 1501) TEST NOT PERFORMED APPEARANCE (test code = TEST NOT PERFORMED 1502) SPECIFIC GRAVITY (test TEST NOT PERFORMED code = 1503) LEUKOCYTE ESTERASE (test TEST NOT PERFORMED code = 1504) NITRITE (test code = TEST NOT PERFORMED 1505) pH (test code = 1506) TEST NOT PERFORMED PROTEIN (test code = TEST NOT PERFORMED 1507) GLUCOSE (test code = TEST NOT PERFORMED 1508) KETONES (test code = TEST NOT PERFORMED 1509) UROBILINOGEN (test code TEST NOT PERFORMED = 1510) MG/DL BILIRUBIN (test code = TEST NOT PERFORMED 1511) OCCULT BLOOD (test code TEST NOT PERFORMED = 1512) URINALYSIS (CULTURE IF INDICATED) [ADDED]2018-02-27 00:00:00 Test Item Value Reference Range Interpretation Comments COLOR (test code = 1501) TEST NOT PERFORMED APPEARANCE (test code = TEST NOT PERFORMED 1502) SPECIFIC GRAVITY (test TEST NOT PERFORMED code = 1503) LEUKOCYTE ESTERASE (test TEST NOT PERFORMED code = 1504) NITRITE (test code = TEST NOT PERFORMED 1505) pH (test code = 1506) TEST NOT PERFORMED PROTEIN (test code = TEST NOT PERFORMED 1507) GLUCOSE (test code = TEST NOT PERFORMED 1508) KETONES (test code = TEST NOT PERFORMED 1509) UROBILINOGEN (test code TEST NOT PERFORMED = 1510) MG/DL BILIRUBIN (test code = TEST NOT PERFORMED 1511) OCCULT BLOOD (test code TEST NOT PERFORMED = 1512) URINALYSIS (CULTURE IF INDICATED) [ADDED]2018-02-27 00:00:00 Test Item Value Reference Range Interpretation Comments COLOR (test code = 1501) TEST NOT PERFORMED APPEARANCE (test code = TEST NOT PERFORMED 1502) SPECIFIC GRAVITY (test TEST NOT PERFORMED code = 1503) LEUKOCYTE ESTERASE (test TEST NOT PERFORMED code = 1504) NITRITE (test code = TEST NOT PERFORMED 1505) pH (test code = 1506) TEST NOT PERFORMED PROTEIN (test code = TEST NOT PERFORMED 1507) GLUCOSE (test code = TEST NOT PERFORMED 1508) KETONES (test code = TEST NOT PERFORMED 1509) UROBILINOGEN (test code TEST NOT PERFORMED = 1510) MG/DL BILIRUBIN (test code = TEST NOT PERFORMED 1511) OCCULT BLOOD (test code TEST NOT PERFORMED = 1512) URINALYSIS (CULTURE IF INDICATED) [ADDED]2018-02-27 00:00:00 Test Item Value Reference Range Interpretation Comments COLOR (test code = 1501) TEST NOT PERFORMED APPEARANCE (test code = TEST NOT PERFORMED 1502) SPECIFIC GRAVITY (test TEST NOT PERFORMED code = 1503) LEUKOCYTE ESTERASE (test TEST NOT PERFORMED code = 1504) NITRITE (test code = TEST NOT PERFORMED 1505) pH (test code = 1506) TEST NOT PERFORMED PROTEIN (test code = TEST NOT PERFORMED 1507) GLUCOSE (test code = TEST NOT PERFORMED 1508) KETONES (test code = TEST NOT PERFORMED 1509) UROBILINOGEN (test code TEST NOT PERFORMED = 1510) MG/DL BILIRUBIN (test code = TEST NOT PERFORMED 1511) OCCULT BLOOD (test code TEST NOT PERFORMED = 1512) URINALYSIS (CULTURE IF INDICATED) [ADDED]2018-02-27 00:00:00 Test Item Value Reference Range Interpretation Comments COLOR (test code = 1501) TEST NOT PERFORMED APPEARANCE (test code = TEST NOT PERFORMED 1502) SPECIFIC GRAVITY (test TEST NOT PERFORMED code = 1503) LEUKOCYTE ESTERASE (test TEST NOT PERFORMED code = 1504) NITRITE (test code = TEST NOT PERFORMED 1505) pH (test code = 1506) TEST NOT PERFORMED PROTEIN (test code = TEST NOT PERFORMED 1507) GLUCOSE (test code = TEST NOT PERFORMED 1508) KETONES (test code = TEST NOT PERFORMED 1509) UROBILINOGEN (test code TEST NOT PERFORMED = 1510) MG/DL BILIRUBIN (test code = TEST NOT PERFORMED 1511) OCCULT BLOOD (test code TEST NOT PERFORMED = 1512) URINALYSIS (CULTURE IF INDICATED) [ADDED]2018-02-27 00:00:00 Test Item Value Reference Range Interpretation Comments COLOR (test code = 1501) TEST NOT PERFORMED APPEARANCE (test code = TEST NOT PERFORMED 1502) SPECIFIC GRAVITY (test TEST NOT PERFORMED code = 1503) LEUKOCYTE ESTERASE (test TEST NOT PERFORMED code = 1504) NITRITE (test code = TEST NOT PERFORMED 1505) pH (test code = 1506) TEST NOT PERFORMED PROTEIN (test code = TEST NOT PERFORMED 1507) GLUCOSE (test code = TEST NOT PERFORMED 1508) KETONES (test code = TEST NOT PERFORMED 1509) UROBILINOGEN (test code TEST NOT PERFORMED = 1510) MG/DL BILIRUBIN (test code = TEST NOT PERFORMED 1511) OCCULT BLOOD (test code TEST NOT PERFORMED = 1512) URINALYSIS (CULTURE IF INDICATED) [ADDED]2018-02-27 00:00:00 Test Item Value Reference Range Interpretation Comments COLOR (test code = 1501) TEST NOT PERFORMED APPEARANCE (test code = TEST NOT PERFORMED 1502) SPECIFIC GRAVITY (test TEST NOT PERFORMED code = 1503) LEUKOCYTE ESTERASE (test TEST NOT PERFORMED code = 1504) NITRITE (test code = TEST NOT PERFORMED 1505) pH (test code = 1506) TEST NOT PERFORMED PROTEIN (test code = TEST NOT PERFORMED 1507) GLUCOSE (test code = TEST NOT PERFORMED 1508) KETONES (test code = TEST NOT PERFORMED 1509) UROBILINOGEN (test code TEST NOT PERFORMED = 1510) MG/DL BILIRUBIN (test code = TEST NOT PERFORMED 1511) OCCULT BLOOD (test code TEST NOT PERFORMED = 1512) CBC W/AUTO [id number] 00:00:00 Test Item Value Reference Range Interpretation Comments WBC (test code = 1001) 7.3 K/UL RBC (test code = 1002) 4.78 M/UL HEMOGLOBIN (test code = 1003) 14.2 G/DL HEMATOCRIT (test code = 1004) 41.7 % MCV (test code = 1005) 87.2 fL MCH (test code = 1006) 29.7 PG MCHC (test code = 1007) 34.1 G/DL RDW (test code = 1038) 12.6 % NEUTROPHILS (test code = 1008) 67.4 % LYMPHOCYTES (test code = 1010) 24.4 % MONOCYTES (test code = 1011) 4.1 % EOSINOPHILS (test code = 1012) 2.7 % BASOPHILS (test code = 1013) 1.4 % PLATELET COUNT (test code = 1015) 359 K/UL GC AND CHLAMYDIA AMPLIFIED, [id number] 00:00:00 Test Item Value Reference Range Interpretation Comments GONORRHEA, TMA (test code = 31034) NEGATIVE CHLAMYDIA, TMA (test code = 31629) POSITIVE CBC W/AUTO [id number] 00:00:00 Test Item Value Reference Range Interpretation Comments WBC (test code = 1001) 7.3 K/UL RBC (test code = 1002) 4.78 M/UL HEMOGLOBIN (test code = 1003) 14.2 G/DL HEMATOCRIT (test code = 1004) 41.7 % MCV (test code = 1005) 87.2 fL MCH (test code = 1006) 29.7 PG MCHC (test code = 1007) 34.1 G/DL RDW (test code = 1038) 12.6 % NEUTROPHILS (test code = 1008) 67.4 % LYMPHOCYTES (test code = 1010) 24.4 % MONOCYTES (test code = 1011) 4.1 % EOSINOPHILS (test code = 1012) 2.7 % BASOPHILS (test code = 1013) 1.4 % PLATELET COUNT (test code = 1015) 359 K/UL PAP TEST, THINPREP, [id number] 00:00:00 Test Item Value Reference Range Interpretation Comments SOURCE: (test code = Cervical/Endocervical 8001) SLIDES: (test code = 1 8011) LMP: (test code = 02/17/2018 8021) SPECIMEN ADEQUACY: (NOTE) (test code = 65262) INTERPRETATION: (test NO EPITHELIAL code = 36693) ABNORMALITY SEE BELOW DENTIST ATTENDANT: Ondina Rivero (test code = 8101) LEOPOLDO Moran(ASCP)IAC LOCATION: (test code (NOTE) = 69907) CPT: (test code = (NOTE) 8140) HEMOGLOBIN [id number] 00:00:00 Test Item Value Reference Range Interpretation Comments HEMOGLOBIN A1c (test code = 63009) 5.1 % HEMOGLOBIN [id number] 00:00:00 Test Item Value Reference Range Interpretation Comments HEMOGLOBIN A1c (test code = 93999) 5.1 % CBC W/AUTO [id number] 00:00:00 Test Item Value Reference Range Interpretation Comments WBC (test code = 1001) 7.3 K/UL RBC (test code = 1002) 4.78 M/UL HEMOGLOBIN (test code = 1003) 14.2 G/DL HEMATOCRIT (test code = 1004) 41.7 % MCV (test code = 1005) 87.2 fL MCH (test code = 1006) 29.7 PG MCHC (test code = 1007) 34.1 G/DL RDW (test code = 1038) 12.6 % NEUTROPHILS (test code = 1008) 67.4 % LYMPHOCYTES (test code = 1010) 24.4 % MONOCYTES (test code = 1011) 4.1 % EOSINOPHILS (test code = 1012) 2.7 % BASOPHILS (test code = 1013) 1.4 % PLATELET COUNT (test code = 1015) 359 K/UL HPV HIGH RISK WITH GENOTYPE, [id number] 00:00:00 Test Item Value Reference Range Interpretation Comments HPV HIGH RISK INTERP (test code = NEGATIVE 07902) HPV 16 (test code = 09922) NEGATIVE HPV 18 (test code = 51082) NEGATIVE HPV, HR, OTHER GENOTYPES (test code NEGATIVE = 58475) LIPID [id number] 00:00:00 Test Item Value Reference Range Interpretation Comments CHOLESTEROL (test code = 2210) 157 MG/DL TRIGLYCERIDES (test code = 2232) 118 MG/DL HDL CHOLESTEROL (test code = 2220) 50 MG/DL CALC LDL CHOL (test code = 2237) 83 MG/DL RISK RATIO LDL/HDL (test code = 1.67 RATIO 2238) COMPREHENSIVE METABOLIC [id number] 00:00:00 Test Item Value Reference Range Interpretation Comments GLUCOSE (test code = 2217) 90 MG/DL BUN (test code = 2208) 8 MG/DL CREATININE (test code = 2214) 0.57 MG/DL eGFR AMER. (test code 134 ML/MIN/1.73 = 21834) eGFR NON- AMER. (test 116 ML/MIN/1.73 code = 49001) CALC BUN/CREAT (test code = 14 RATIO 2235) SODIUM (test code = 2231) 141 MEQ/L POTASSIUM (test code = 2228) 4.4 MEQ/L CHLORIDE (test code = 2215) 102 MEQ/L CARBON DIOXIDE (test code = 27 MEQ/L 2206) CALCIUM (test code = 2209) 9.9 MG/DL PROTEIN, TOTAL (test code = 7.2 G/DL 2228) ALBUMIN (test code = 2201) 4.9 G/DL CALC GLOBULIN (test code = 2.3 G/DL 2240) CALC A/G RATIO (test code = 2.1 RATIO 2234) BILIRUBIN, TOTAL (test code = 0.6 MG/DL 2206) ALKALINE PHOSPHATASE (test 122 U/L code = 2204) AST (test code = 2218) 39 U/L ALT (test code = 2219) 73 U/L [id number] 00:00:00 Test Item Value Reference Range Interpretation Comments TSH, THIRD GENERATION (test code 3.630 UIU/ML = 2821) [id number] 00:00:00 Test Item Value Reference Range Interpretation Comments TSH, THIRD GENERATION (test code 3.630 UIU/ML = 2821) ACUTE HEPATITIS [id number] 00:00:00 Test Item Value Reference Range Interpretation Comments HEPATITIS A IgM (test code = NON-REACTIVE 57883) HEPATITIS B CORE IgM (test code NON-REACTIVE = 4644) HEPATITIS B SURF AG (test code = NON-REACTIVE 3159) HEPATITIS C ANTIBODY (test code NON-REACTIVE = 4675) INTERPRETATION HEPATITIS A: (NOTE) (test code = 2552) INTERPRETATION HEPATITIS B: (NOTE) (test code = 62613) INTERPRETATION HEPATITIS C: (NOTE) (test code = 03089) [id number] 00:00:00 Test Item Value Reference Range Interpretation Comments RPR RESULT (test code = NON-REACTIVE 3501) RPR TITER (test code = 3500) NOT INDIC. TITER [id number] 00:00:00 Test Item Value Reference Range Interpretation Comments RPR RESULT (test code = NON-REACTIVE 3501) RPR TITER (test code = 3500) NOT INDIC. TITER HIV AB/AG COMBO RFLX [id number] 00:00:00 Test Item Value Reference Range Interpretation Comments HIV 1/2 4TH GEN, RFLX CONF (test NON-REACTIVE code = 3514) VAGINAL PATHOGENS DNA [id number] 00:00:00 Test Item Value Reference Range Interpretation Comments CHRISTIAN SPECIES (test code = 57820) NEGATIVE G. VAGINALIS (test code = 11789) POSITIVE T. VAGINALIS (test code = 91549) NEGATIVE VITAMIN D, 25 [id number] 00:00:00 Test Item Value Reference Range Interpretation Comments VITAMIN D, 25 OH (test code = 4958) 20 NG/ML VITAMIN B 12 AND FOLIC [id number] 00:00:00 Test Item Value Reference Range Interpretation Comments VITAMIN B-12 (test code = 2840) 689 PG/ML FOLIC ACID (test code = 2695) 5.7 UG/L GC AND CHLAMYDIA AMPLIFIED, [id number] 00:00:00 Test Item Value Reference Range Interpretation Comments GONORRHEA, TMA (test code = 81109) NEGATIVE CHLAMYDIA, TMA (test code = 75836) POSITIVE CBC W/AUTO [id number] 00:00:00 Test Item Value Reference Range Interpretation Comments WBC (test code = 1001) 7.3 K/UL RBC (test code = 1002) 4.78 M/UL HEMOGLOBIN (test code = 1003) 14.2 G/DL HEMATOCRIT (test code = 1004) 41.7 % MCV (test code = 1005) 87.2 fL MCH (test code = 1006) 29.7 PG MCHC (test code = 1007) 34.1 G/DL RDW (test code = 1038) 12.6 % NEUTROPHILS (test code = 1008) 67.4 % LYMPHOCYTES (test code = 1010) 24.4 % MONOCYTES (test code = 1011) 4.1 % EOSINOPHILS (test code = 1012) 2.7 % BASOPHILS (test code = 1013) 1.4 % PLATELET COUNT (test code = 1015) 359 K/UL CBC W/AUTO [id number] 00:00:00 Test Item Value Reference Range Interpretation Comments WBC (test code = 1001) 7.3 K/UL RBC (test code = 1002) 4.78 M/UL HEMOGLOBIN (test code = 1003) 14.2 G/DL HEMATOCRIT (test code = 1004) 41.7 % MCV (test code = 1005) 87.2 fL MCH (test code = 1006) 29.7 PG MCHC (test code = 1007) 34.1 G/DL RDW (test code = 1038) 12.6 % NEUTROPHILS (test code = 1008) 67.4 % LYMPHOCYTES (test code = 1010) 24.4 % MONOCYTES (test code = 1011) 4.1 % EOSINOPHILS (test code = 1012) 2.7 % BASOPHILS (test code = 1013) 1.4 % PLATELET COUNT (test code = 1015) 359 K/UL CBC W/AUTO [id number] 00:00:00 Test Item Value Reference Range Interpretation Comments WBC (test code = 1001) 7.3 K/UL RBC (test code = 1002) 4.78 M/UL HEMOGLOBIN (test code = 1003) 14.2 G/DL HEMATOCRIT (test code = 1004) 41.7 % MCV (test code = 1005) 87.2 fL MCH (test code = 1006) 29.7 PG MCHC (test code = 1007) 34.1 G/DL RDW (test code = 1038) 12.6 % NEUTROPHILS (test code = 1008) 67.4 % LYMPHOCYTES (test code = 1010) 24.4 % MONOCYTES (test code = 1011) 4.1 % EOSINOPHILS (test code = 1012) 2.7 % BASOPHILS (test code = 1013) 1.4 % PLATELET COUNT (test code = 1015) 359 K/UL GC AND CHLAMYDIA AMPLIFIED, [id number] 00:00:00 Test Item Value Reference Range Interpretation Comments GONORRHEA, TMA (test code = 77486) NEGATIVE CHLAMYDIA, TMA (test code = 47618) POSITIVE CBC W/AUTO [id number] 00:00:00 Test Item Value Reference Range Interpretation Comments WBC (test code = 1001) 7.3 K/UL RBC (test code = 1002) 4.78 M/UL HEMOGLOBIN (test code = 1003) 14.2 G/DL HEMATOCRIT (test code = 1004) 41.7 % MCV (test code = 1005) 87.2 fL MCH (test code = 1006) 29.7 PG MCHC (test code = 1007) 34.1 G/DL RDW (test code = 1038) 12.6 % NEUTROPHILS (test code = 1008) 67.4 % LYMPHOCYTES (test code = 1010) 24.4 % MONOCYTES (test code = 1011) 4.1 % EOSINOPHILS (test code = 1012) 2.7 % BASOPHILS (test code = 1013) 1.4 % PLATELET COUNT (test code = 1015) 359 K/UL GC AND CHLAMYDIA AMPLIFIED, [id number] 00:00:00 Test Item Value Reference Range Interpretation Comments GONORRHEA, TMA (test code = 32537) NEGATIVE CHLAMYDIA, TMA (test code = 36869) POSITIVE HEMOGLOBIN [id number] 00:00:00 Test Item Value Reference Range Interpretation Comments HEMOGLOBIN A1c (test code = 36958) 5.1 % HEMOGLOBIN [id number] 00:00:00 Test Item Value Reference Range Interpretation Comments HEMOGLOBIN A1c (test code = 80083) 5.1 % HEMOGLOBIN [id number] 00:00:00 Test Item Value Reference Range Interpretation Comments HEMOGLOBIN A1c (test code = 99072) 5.1 % PAP TEST, THINPREP, [id number] 00:00:00 Test Item Value Reference Range Interpretation Comments SOURCE: (test code = Cervical/Endocervical 8001) SLIDES: (test code = 1 8011) LMP: (test code = 02/17/2018 8021) SPECIMEN ADEQUACY: (NOTE) (test code = 55652) INTERPRETATION: (test NO EPITHELIAL code = 66852) ABNORMALITY SEE BELOW DENTIST ATTENDANT: Ondina Rivero (test code = 8101) Moran,CT(ASCP)IAC LOCATION: (test code (NOTE) = 55939) CPT: (test code = (NOTE) 8140) PAP TEST, THINPREP, [id number] 00:00:00 Test Item Value Reference Range Interpretation Comments SOURCE: (test code = Cervical/Endocervical 8001) SLIDES: (test code = 1 8011) LMP: (test code = 02/17/2018 8021) SPECIMEN ADEQUACY: (NOTE) (test code = 31527) INTERPRETATION: (test NO EPITHELIAL code = 03806) ABNORMALITY SEE BELOW DENTIST ATTENDANT: Ondina Rivero (test code = 8101) Moran,CT(ASCP)IAC LOCATION: (test code (NOTE) = 18477) CPT: (test code = (NOTE) 8140) HEMOGLOBIN [id number] 00:00:00 Test Item Value Reference Range Interpretation Comments HEMOGLOBIN A1c (test code = 98053) 5.1 % HPV HIGH RISK WITH GENOTYPE, [id number] 00:00:00 Test Item Value Reference Range Interpretation Comments HPV HIGH RISK INTERP (test code = NEGATIVE 36218) HPV 16 (test code = 36515) NEGATIVE HPV 18 (test code = 31845) NEGATIVE HPV, HR, OTHER GENOTYPES (test code NEGATIVE = 34652) LIPID [id number] 00:00:00 Test Item Value Reference Range Interpretation Comments CHOLESTEROL (test code = 2210) 157 MG/DL TRIGLYCERIDES (test code = 2232) 118 MG/DL HDL CHOLESTEROL (test code = 2220) 50 MG/DL CALC LDL CHOL (test code = 2237) 83 MG/DL RISK RATIO LDL/HDL (test code = 1.67 RATIO 2238) HPV HIGH RISK WITH GENOTYPE, [id number] 00:00:00 Test Item Value Reference Range Interpretation Comments HPV HIGH RISK INTERP (test code = NEGATIVE 58616) HPV 16 (test code = 39963) NEGATIVE HPV 18 (test code = 28683) NEGATIVE HPV, HR, OTHER GENOTYPES (test code NEGATIVE = 27653) LIPID [id number] 00:00:00 Test Item Value Reference Range Interpretation Comments CHOLESTEROL (test code = 2210) 157 MG/DL TRIGLYCERIDES (test code = 2232) 118 MG/DL HDL CHOLESTEROL (test code = 2220) 50 MG/DL CALC LDL CHOL (test code = 2237) 83 MG/DL RISK RATIO LDL/HDL (test code = 1.67 RATIO 2238) COMPREHENSIVE METABOLIC [id number] 00:00:00 Test Item Value Reference Range Interpretation Comments GLUCOSE (test code = 2217) 90 MG/DL BUN (test code = 2208) 8 MG/DL CREATININE (test code = 2214) 0.57 MG/DL eGFR AMER. (test code 134 ML/MIN/1.73 = 87095) eGFR NON- AMER. (test 116 ML/MIN/1.73 code = 35192) CALC BUN/CREAT (test code = 14 RATIO 2235) SODIUM (test code = 2231) 141 MEQ/L POTASSIUM (test code = 2228) 4.4 MEQ/L CHLORIDE (test code = 2215) 102 MEQ/L CARBON DIOXIDE (test code = 27 MEQ/L 2205) CALCIUM (test code = 2209) 9.9 MG/DL PROTEIN, TOTAL (test code = 7.2 G/DL 2228) ALBUMIN (test code = 2201) 4.9 G/DL CALC GLOBULIN (test code = 2.3 G/DL 2240) CALC A/G RATIO (test code = 2.1 RATIO 2234) BILIRUBIN, TOTAL (test code = 0.6 MG/DL 2206) ALKALINE PHOSPHATASE (test 122 U/L code = 2204) AST (test code = 2218) 39 U/L ALT (test code = 2219) 73 U/L COMPREHENSIVE METABOLIC [id number] 00:00:00 Test Item Value Reference Range Interpretation Comments GLUCOSE (test code = 2217) 90 MG/DL BUN (test code = 2208) 8 MG/DL CREATININE (test code = 2214) 0.57 MG/DL eGFR AMER. (test code 134 ML/MIN/1.73 = 80156) eGFR NON- AMER. (test 116 ML/MIN/1.73 code = 63542) CALC BUN/CREAT (test code = 14 RATIO 2235) SODIUM (test code = 2231) 141 MEQ/L POTASSIUM (test code = 2228) 4.4 MEQ/L CHLORIDE (test code = 2215) 102 MEQ/L CARBON DIOXIDE (test code = 27 MEQ/L 2205) CALCIUM (test code = 2209) 9.9 MG/DL PROTEIN, TOTAL (test code = 7.2 G/DL 2228) ALBUMIN (test code = 2201) 4.9 G/DL CALC GLOBULIN (test code = 2.3 G/DL 2239) CALC A/G RATIO (test code = 2.1 RATIO 2233) BILIRUBIN, TOTAL (test code = 0.6 MG/DL 2206) ALKALINE PHOSPHATASE (test 122 U/L code = 2204) AST (test code = 2218) 39 U/L ALT (test code = 2219) 73 U/L [id number] 00:00:00 Test Item Value Reference Range Interpretation Comments TSH, THIRD GENERATION (test code 3.630 UIU/ML = 2821) [id number] 00:00:00 Test Item Value Reference Range Interpretation Comments TSH, THIRD GENERATION (test code 3.630 UIU/ML = 2821) [id number] 00:00:00 Test Item Value Reference Range Interpretation Comments TSH, THIRD GENERATION (test code 3.630 UIU/ML = 2821) HEMOGLOBIN [id number] 00:00:00 Test Item Value Reference Range Interpretation Comments HEMOGLOBIN A1c (test code = 97966) 5.1 % ACUTE HEPATITIS [id number] 00:00:00 Test Item Value Reference Range Interpretation Comments HEPATITIS A IgM (test code = NON-REACTIVE 47615) HEPATITIS B CORE IgM (test code NON-REACTIVE = 2062) HEPATITIS B SURF AG (test code = NON-REACTIVE 6736) HEPATITIS C ANTIBODY (test code NON-REACTIVE = 2295) INTERPRETATION HEPATITIS A: (NOTE) (test code = 2552) INTERPRETATION HEPATITIS B: (NOTE) (test code = 04648) INTERPRETATION HEPATITIS C: (NOTE) (test code = 00163) ACUTE HEPATITIS [id number] 00:00:00 Test Item Value Reference Range Interpretation Comments HEPATITIS A IgM (test code = NON-REACTIVE 17805) HEPATITIS B CORE IgM (test code NON-REACTIVE = 4644) HEPATITIS B SURF AG (test code = NON-REACTIVE 2739) HEPATITIS C ANTIBODY (test code NON-REACTIVE = 4675) INTERPRETATION HEPATITIS A: (NOTE) (test code = 2552) INTERPRETATION HEPATITIS B: (NOTE) (test code = 69804) INTERPRETATION HEPATITIS C: (NOTE) (test code = 82481) [id number] 00:00:00 Test Item Value Reference Range Interpretation Comments RPR RESULT (test code = NON-REACTIVE 3501) RPR TITER (test code = 3500) NOT INDIC. TITER [id number] 00:00:00 Test Item Value Reference Range Interpretation Comments RPR RESULT (test code = NON-REACTIVE 3501) RPR TITER (test code = 3500) NOT INDIC. TITER [id number] 00:00:00 Test Item Value Reference Range Interpretation Comments RPR RESULT (test code = NON-REACTIVE 3501) RPR TITER (test code = 3500) NOT INDIC. TITER HIV AB/AG COMBO RFLX [id number] 00:00:00 Test Item Value Reference Range Interpretation Comments HIV 1/2 4TH GEN, RFLX CONF (test NON-REACTIVE code = 3514) HIV AB/AG COMBO RFLX [id number] 00:00:00 Test Item Value Reference Range Interpretation Comments HIV 1/2 4TH GEN, RFLX CONF (test NON-REACTIVE code = 3514) VAGINAL PATHOGENS DNA [id number] 00:00:00 Test Item Value Reference Range Interpretation Comments CHRISTIAN SPECIES (test code = ) NEGATIVE G. VAGINALIS (test code = ) POSITIVE T. VAGINALIS (test code = ) NEGATIVE VAGINAL PATHOGENS DNA [id number] 00:00:00 Test Item Value Reference Range Interpretation Comments CHRISTIAN SPECIES (test code = ) NEGATIVE G. VAGINALIS (test code = 86919) POSITIVE T. VAGINALIS (test code = 46452) NEGATIVE VITAMIN D, 25 [id number] 00:00:00 Test Item Value Reference Range Interpretation Comments VITAMIN D, 25 OH (test code = 4958) 20 NG/ML VITAMIN D, 25 [id number] 00:00:00 Test Item Value Reference Range Interpretation Comments VITAMIN D, 25 OH (test code = 4958) 20 NG/ML VITAMIN B 12 AND FOLIC [id number] 00:00:00 Test Item Value Reference Range Interpretation Comments VITAMIN B-12 (test code = 2840) 689 PG/ML FOLIC ACID (test code = 2695) 5.7 UG/L VITAMIN B 12 AND FOLIC [id number] 00:00:00 Test Item Value Reference Range Interpretation Comments VITAMIN B-12 (test code = 2840) 689 PG/ML FOLIC ACID (test code = 2695) 5.7 UG/L PAP TEST, THINPREP, [id number] 00:00:00 Test Item Value Reference Range Interpretation Comments SOURCE: (test code = Cervical/Endocervical 8001) SLIDES: (test code = 1 8011) LMP: (test code = 02/17/2018 8021) SPECIMEN ADEQUACY: (NOTE) (test code = 68164) INTERPRETATION: (test NO EPITHELIAL code = 93493) ABNORMALITY SEE BELOW DENTIST ATTENDANT: Ondina Rivero (test code = 8101) LEOPOLDO Moran(ASCP)IAC LOCATION: (test code (NOTE) = 21366) CPT: (test code = (NOTE) 8140) HPV HIGH RISK WITH GENOTYPE, [id number] 00:00:00 Test Item Value Reference Range Interpretation Comments HPV HIGH RISK INTERP (test code = NEGATIVE 54520) HPV 16 (test code = 74868) NEGATIVE HPV 18 (test code = 79736) NEGATIVE HPV, HR, OTHER GENOTYPES (test code NEGATIVE = 76105) LIPID [id number] 00:00:00 Test Item Value Reference Range Interpretation Comments CHOLESTEROL (test code = 2210) 157 MG/DL TRIGLYCERIDES (test code = 2232) 118 MG/DL HDL CHOLESTEROL (test code = 2220) 50 MG/DL CALC LDL CHOL (test code = 2237) 83 MG/DL RISK RATIO LDL/HDL (test code = 1.67 RATIO 2238) CBC W/AUTO [id number] 00:00:00 Test Item Value Reference Range Interpretation Comments WBC (test code = 1001) 7.3 K/UL RBC (test code = 1002) 4.78 M/UL HEMOGLOBIN (test code = 1003) 14.2 G/DL HEMATOCRIT (test code = 1004) 41.7 % MCV (test code = 1005) 87.2 fL MCH (test code = 1006) 29.7 PG MCHC (test code = 1007) 34.1 G/DL RDW (test code = 1038) 12.6 % NEUTROPHILS (test code = 1008) 67.4 % LYMPHOCYTES (test code = 1010) 24.4 % MONOCYTES (test code = 1011) 4.1 % EOSINOPHILS (test code = 1012) 2.7 % BASOPHILS (test code = 1013) 1.4 % PLATELET COUNT (test code = 1015) 359 K/UL GC AND CHLAMYDIA AMPLIFIED, [id number] 00:00:00 Test Item Value Reference Range Interpretation Comments GONORRHEA, TMA (test code = 34662) NEGATIVE CHLAMYDIA, TMA (test code = 78349) POSITIVE CBC W/AUTO [id number] 00:00:00 Test Item Value Reference Range Interpretation Comments WBC (test code = 1001) 7.3 K/UL RBC (test code = 1002) 4.78 M/UL HEMOGLOBIN (test code = 1003) 14.2 G/DL HEMATOCRIT (test code = 1004) 41.7 % MCV (test code = 1005) 87.2 fL MCH (test code = 1006) 29.7 PG MCHC (test code = 1007) 34.1 G/DL RDW (test code = 1038) 12.6 % NEUTROPHILS (test code = 1008) 67.4 % LYMPHOCYTES (test code = 1010) 24.4 % MONOCYTES (test code = 1011) 4.1 % EOSINOPHILS (test code = 1012) 2.7 % BASOPHILS (test code = 1013) 1.4 % PLATELET COUNT (test code = 1015) 359 K/UL CBC W/AUTO [id number] 00:00:00 Test Item Value Reference Range Interpretation Comments WBC (test code = 1001) 7.3 K/UL RBC (test code = 1002) 4.78 M/UL HEMOGLOBIN (test code = 1003) 14.2 G/DL HEMATOCRIT (test code = 1004) 41.7 % MCV (test code = 1005) 87.2 fL MCH (test code = 1006) 29.7 PG MCHC (test code = 1007) 34.1 G/DL RDW (test code = 1038) 12.6 % NEUTROPHILS (test code = 1008) 67.4 % LYMPHOCYTES (test code = 1010) 24.4 % MONOCYTES (test code = 1011) 4.1 % EOSINOPHILS (test code = 1012) 2.7 % BASOPHILS (test code = 1013) 1.4 % PLATELET COUNT (test code = 1015) 359 K/UL GC AND CHLAMYDIA AMPLIFIED, [id number] 00:00:00 Test Item Value Reference Range Interpretation Comments GONORRHEA, TMA (test code = 04637) NEGATIVE CHLAMYDIA, TMA (test code = 71335) POSITIVE COMPREHENSIVE METABOLIC [id number] 00:00:00 Test Item Value Reference Range Interpretation Comments GLUCOSE (test code = 2217) 90 MG/DL BUN (test code = 2208) 8 MG/DL CREATININE (test code = 2214) 0.57 MG/DL eGFR AMER. (test code 134 ML/MIN/1.73 = 64803) eGFR NON- AMER. (test 116 ML/MIN/1.73 code = 34146) CALC BUN/CREAT (test code = 14 RATIO 2235) SODIUM (test code = 2231) 141 MEQ/L POTASSIUM (test code = 2228) 4.4 MEQ/L CHLORIDE (test code = 2215) 102 MEQ/L CARBON DIOXIDE (test code = 27 MEQ/L 2205) CALCIUM (test code = 2209) 9.9 MG/DL PROTEIN, TOTAL (test code = 7.2 G/DL 2228) ALBUMIN (test code = 2201) 4.9 G/DL CALC GLOBULIN (test code = 2.3 G/DL 2240) CALC A/G RATIO (test code = 2.1 RATIO 2234) BILIRUBIN, TOTAL (test code = 0.6 MG/DL 2206) ALKALINE PHOSPHATASE (test 122 U/L code = 2204) AST (test code = 2218) 39 U/L ALT (test code = 2219) 73 U/L PAP TEST, THINPREP, [id number] 00:00:00 Test Item Value Reference Range Interpretation Comments SOURCE: (test code = Cervical/Endocervical 8001) SLIDES: (test code = 1 8011) LMP: (test code = 02/17/2018 8021) SPECIMEN ADEQUACY: (NOTE) (test code = 48787) INTERPRETATION: (test NO EPITHELIAL code = 38703) ABNORMALITY SEE BELOW DENTIST ATTENDANT: Ondina Rivero (test code = 8101) Moran,CT(ASCP)IAC LOCATION: (test code (NOTE) = 08275) CPT: (test code = (NOTE) 8140) HEMOGLOBIN [id number] 00:00:00 Test Item Value Reference Range Interpretation Comments HEMOGLOBIN A1c (test code = 66971) 5.1 % PAP TEST, THINPREP, [id number] 00:00:00 Test Item Value Reference Range Interpretation Comments SOURCE: (test code = Cervical/Endocervical 8001) SLIDES: (test code = 1 8011) LMP: (test code = 02/17/2018 8021) SPECIMEN ADEQUACY: (NOTE) (test code = 08812) INTERPRETATION: (test NO EPITHELIAL code = 45147) ABNORMALITY SEE BELOW DENTIST ATTENDANT: Ondina Rivero (test code = 8101) Moran,CT(ASCP)IAC LOCATION: (test code (NOTE) = 10490) CPT: (test code = (NOTE) 8140) HEMOGLOBIN [id number] 00:00:00 Test Item Value Reference Range Interpretation Comments HEMOGLOBIN A1c (test code = 33796) 5.1 % HEMOGLOBIN [id number] 00:00:00 Test Item Value Reference Range Interpretation Comments HEMOGLOBIN A1c (test code = 66204) 5.1 % LIPID [id number] 00:00:00 Test Item Value Reference Range Interpretation Comments CHOLESTEROL (test code = 2210) 157 MG/DL TRIGLYCERIDES (test code = 2232) 118 MG/DL HDL CHOLESTEROL (test code = 2220) 50 MG/DL CALC LDL CHOL (test code = 2237) 83 MG/DL RISK RATIO LDL/HDL (test code = 1.67 RATIO 2238) [id number] 00:00:00 Test Item Value Reference Range Interpretation Comments TSH, THIRD GENERATION (test code 3.630 UIU/ML = 2821) HPV HIGH RISK WITH GENOTYPE, [id number] 00:00:00 Test Item Value Reference Range Interpretation Comments HPV HIGH RISK INTERP (test code = NEGATIVE 42442) HPV 16 (test code = 16175) NEGATIVE HPV 18 (test code = 63084) NEGATIVE HPV, HR, OTHER GENOTYPES (test code NEGATIVE = 00172) LIPID [id number] 00:00:00 Test Item Value Reference Range Interpretation Comments CHOLESTEROL (test code = 2210) 157 MG/DL TRIGLYCERIDES (test code = 2232) 118 MG/DL HDL CHOLESTEROL (test code = 2220) 50 MG/DL CALC LDL CHOL (test code = 2237) 83 MG/DL RISK RATIO LDL/HDL (test code = 1.67 RATIO 2238) HPV HIGH RISK WITH GENOTYPE, [id number] 00:00:00 Test Item Value Reference Range Interpretation Comments HPV HIGH RISK INTERP (test code = NEGATIVE 76813) HPV 16 (test code = 74551) NEGATIVE HPV 18 (test code = 68876) NEGATIVE HPV, HR, OTHER GENOTYPES (test code NEGATIVE = 40152) COMPREHENSIVE METABOLIC [id number] 00:00:00 Test Item Value Reference Range Interpretation Comments GLUCOSE (test code = 2217) 90 MG/DL BUN (test code = 2208) 8 MG/DL CREATININE (test code = 2214) 0.57 MG/DL eGFR AMER. (test code 134 ML/MIN/1.73 = 28791) eGFR NON- AMER. (test 116 ML/MIN/1.73 code = 23242) CALC BUN/CREAT (test code = 14 RATIO 2235) SODIUM (test code = 2231) 141 MEQ/L POTASSIUM (test code = 2228) 4.4 MEQ/L CHLORIDE (test code = 2215) 102 MEQ/L CARBON DIOXIDE (test code = 27 MEQ/L 2205) CALCIUM (test code = 2209) 9.9 MG/DL PROTEIN, TOTAL (test code = 7.2 G/DL 2228) ALBUMIN (test code = 2201) 4.9 G/DL CALC GLOBULIN (test code = 2.3 G/DL 0) CALC A/G RATIO (test code = 2.1 RATIO 2234) BILIRUBIN, TOTAL (test code = 0.6 MG/DL 2206) ALKALINE PHOSPHATASE (test 122 U/L code = 2204) AST (test code = 2218) 39 U/L ALT (test code = 2219) 73 U/L COMPREHENSIVE METABOLIC [id number] 00:00:00 Test Item Value Reference Range Interpretation Comments GLUCOSE (test code = 2217) 90 MG/DL BUN (test code = 2208) 8 MG/DL CREATININE (test code = 2214) 0.57 MG/DL eGFR AMER. (test code 134 ML/MIN/1.73 = 23121) eGFR NON- AMER. (test 116 ML/MIN/1.73 code = 77128) CALC BUN/CREAT (test code = 14 RATIO 2235) SODIUM (test code = 2231) 141 MEQ/L POTASSIUM (test code = 2228) 4.4 MEQ/L CHLORIDE (test code = 2215) 102 MEQ/L CARBON DIOXIDE (test code = 27 MEQ/L 2205) CALCIUM (test code = 2209) 9.9 MG/DL PROTEIN, TOTAL (test code = 7.2 G/DL 2228) ALBUMIN (test code = 2201) 4.9 G/DL CALC GLOBULIN (test code = 2.3 G/DL 2240) CALC A/G RATIO (test code = 2.1 RATIO 2234) BILIRUBIN, TOTAL (test code = 0.6 MG/DL 2206) ALKALINE PHOSPHATASE (test 122 U/L code = 2204) AST (test code = 2218) 39 U/L ALT (test code = 2219) 73 U/L [id number] 00:00:00 Test Item Value Reference Range Interpretation Comments TSH, THIRD GENERATION (test code 3.630 UIU/ML = 2821) [id number] 00:00:00 Test Item Value Reference Range Interpretation Comments TSH, THIRD GENERATION (test code 3.630 UIU/ML = 2821) [id number] 00:00:00 Test Item Value Reference Range Interpretation Comments TSH, THIRD GENERATION (test code 3.630 UIU/ML = 2821) [id number] 00:00:00 Test Item Value Reference Range Interpretation Comments TSH, THIRD GENERATION (test code 3.630 UIU/ML = 2821) ACUTE HEPATITIS [id number] 00:00:00 Test Item Value Reference Range Interpretation Comments HEPATITIS A IgM (test code = NON-REACTIVE 48808) HEPATITIS B CORE IgM (test code NON-REACTIVE = 4644) HEPATITIS B SURF AG (test code = NON-REACTIVE 2739) HEPATITIS C ANTIBODY (test code NON-REACTIVE = 4675) INTERPRETATION HEPATITIS A: (NOTE) (test code = 2552) INTERPRETATION HEPATITIS B: (NOTE) (test code = 41389) INTERPRETATION HEPATITIS C: (NOTE) (test code = 20331) ACUTE HEPATITIS [id number] 00:00:00 Test Item Value Reference Range Interpretation Comments HEPATITIS A IgM (test code = NON-REACTIVE 28053) HEPATITIS B CORE IgM (test code NON-REACTIVE = 4644) HEPATITIS B SURF AG (test code = NON-REACTIVE 2739) HEPATITIS C ANTIBODY (test code NON-REACTIVE = 4675) INTERPRETATION HEPATITIS A: (NOTE) (test code = 2552) INTERPRETATION HEPATITIS B: (NOTE) (test code = 04073) INTERPRETATION HEPATITIS C: (NOTE) (test code = 96750) [id number] 00:00:00 Test Item Value Reference Range Interpretation Comments RPR RESULT (test code = NON-REACTIVE 3501) RPR TITER (test code = 3500) NOT INDIC. TITER [id number] 00:00:00 Test Item Value Reference Range Interpretation Comments RPR RESULT (test code = NON-REACTIVE 3501) RPR TITER (test code = 3500) NOT INDIC. TITER [id number] 00:00:00 Test Item Value Reference Range Interpretation Comments RPR RESULT (test code = NON-REACTIVE 3501) RPR TITER (test code = 3500) NOT INDIC. TITER HIV AB/AG COMBO RFLX [id number] 00:00:00 Test Item Value Reference Range Interpretation Comments HIV 1/2 4TH GEN, RFLX CONF (test NON-REACTIVE code = 3514) HIV AB/AG COMBO RFLX [id number] 00:00:00 Test Item Value Reference Range Interpretation Comments HIV 1/2 4TH GEN, RFLX CONF (test NON-REACTIVE code = 3514) VAGINAL PATHOGENS DNA [id number] 00:00:00 Test Item Value Reference Range Interpretation Comments CHRISTIAN SPECIES (test code = ) NEGATIVE G. VAGINALIS (test code = ) POSITIVE T. VAGINALIS (test code = ) NEGATIVE VAGINAL PATHOGENS DNA [id number] 00:00:00 Test Item Value Reference Range Interpretation Comments CHRISTIAN SPECIES (test code = ) NEGATIVE G. VAGINALIS (test code = 64502) POSITIVE T. VAGINALIS (test code = 85250) NEGATIVE VITAMIN D, 25 [id number] 00:00:00 Test Item Value Reference Range Interpretation Comments VITAMIN D, 25 OH (test code = 4958) 20 NG/ML VITAMIN D, 25 [id number] 00:00:00 Test Item Value Reference Range Interpretation Comments VITAMIN D, 25 OH (test code = 4958) 20 NG/ML VITAMIN B 12 AND FOLIC [id number] 00:00:00 Test Item Value Reference Range Interpretation Comments VITAMIN B-12 (test code = 2840) 689 PG/ML FOLIC ACID (test code = 2695) 5.7 UG/L VITAMIN B 12 AND FOLIC [id number] 00:00:00 Test Item Value Reference Range Interpretation Comments VITAMIN B-12 (test code = 2840) 689 PG/ML FOLIC ACID (test code = 2695) 5.7 UG/L ACUTE HEPATITIS [id number] 00:00:00 Test Item Value Reference Range Interpretation Comments HEPATITIS A IgM (test code = NON-REACTIVE 66805) HEPATITIS B CORE IgM (test code NON-REACTIVE = 4644) HEPATITIS B SURF AG (test code = NON-REACTIVE 2739) HEPATITIS C ANTIBODY (test code NON-REACTIVE = 4675) INTERPRETATION HEPATITIS A: (NOTE) (test code = 2552) INTERPRETATION HEPATITIS B: (NOTE) (test code = 44913) INTERPRETATION HEPATITIS C: (NOTE) (test code = 95252) [id number] 00:00:00 Test Item Value Reference Range Interpretation Comments RPR RESULT (test code = NON-REACTIVE 3501) RPR TITER (test code = 3500) NOT INDIC. TITER [id number] 00:00:00 Test Item Value Reference Range Interpretation Comments RPR RESULT (test code = NON-REACTIVE 3501) RPR TITER (test code = 3500) NOT INDIC. TITER HIV AB/AG COMBO RFLX [id number] 00:00:00 Test Item Value Reference Range Interpretation Comments HIV 1/2 4TH GEN, RFLX CONF (test NON-REACTIVE code = 3514) VAGINAL PATHOGENS DNA [id number] 00:00:00 Test Item Value Reference Range Interpretation Comments CHRISTIAN SPECIES (test code = ) NEGATIVE G. VAGINALIS (test code = ) POSITIVE T. VAGINALIS (test code = ) NEGATIVE CBC W/AUTO [id number] 00:00:00 Test Item Value Reference Range Interpretation Comments WBC (test code = 1001) 7.3 K/UL RBC (test code = 1002) 4.78 M/UL HEMOGLOBIN (test code = 1003) 14.2 G/DL HEMATOCRIT (test code = 1004) 41.7 % MCV (test code = 1005) 87.2 fL MCH (test code = 1006) 29.7 PG MCHC (test code = 1007) 34.1 G/DL RDW (test code = 1038) 12.6 % NEUTROPHILS (test code = 1008) 67.4 % LYMPHOCYTES (test code = 1010) 24.4 % MONOCYTES (test code = 1011) 4.1 % EOSINOPHILS (test code = 1012) 2.7 % BASOPHILS (test code = 1013) 1.4 % PLATELET COUNT (test code = 1015) 359 K/UL VITAMIN D, 25 [id number] 00:00:00 Test Item Value Reference Range Interpretation Comments VITAMIN D, 25 OH (test code = 4958) 20 NG/ML GC AND CHLAMYDIA AMPLIFIED, [id number] 00:00:00 Test Item Value Reference Range Interpretation Comments GONORRHEA, TMA (test code = 32479) NEGATIVE CHLAMYDIA, TMA (test code = 45611) POSITIVE GC AND CHLAMYDIA AMPLIFIED, [id number] 00:00:00 Test Item Value Reference Range Interpretation Comments GONORRHEA, TMA (test code = 84970) NEGATIVE CHLAMYDIA, TMA (test code = 69272) POSITIVE CBC W/AUTO [id number] 00:00:00 Test Item Value Reference Range Interpretation Comments WBC (test code = 1001) 7.3 K/UL RBC (test code = 1002) 4.78 M/UL HEMOGLOBIN (test code = 1003) 14.2 G/DL HEMATOCRIT (test code = 1004) 41.7 % MCV (test code = 1005) 87.2 fL MCH (test code = 1006) 29.7 PG MCHC (test code = 1007) 34.1 G/DL RDW (test code = 1038) 12.6 % NEUTROPHILS (test code = 1008) 67.4 % LYMPHOCYTES (test code = 1010) 24.4 % MONOCYTES (test code = 1011) 4.1 % EOSINOPHILS (test code = 1012) 2.7 % BASOPHILS (test code = 1013) 1.4 % PLATELET COUNT (test code = 1015) 359 K/UL CBC W/AUTO [id number] 00:00:00 Test Item Value Reference Range Interpretation Comments WBC (test code = 1001) 7.3 K/UL RBC (test code = 1002) 4.78 M/UL HEMOGLOBIN (test code = 1003) 14.2 G/DL HEMATOCRIT (test code = 1004) 41.7 % MCV (test code = 1005) 87.2 fL MCH (test code = 1006) 29.7 PG MCHC (test code = 1007) 34.1 G/DL RDW (test code = 1038) 12.6 % NEUTROPHILS (test code = 1008) 67.4 % LYMPHOCYTES (test code = 1010) 24.4 % MONOCYTES (test code = 1011) 4.1 % EOSINOPHILS (test code = 1012) 2.7 % BASOPHILS (test code = 1013) 1.4 % PLATELET COUNT (test code = 1015) 359 K/UL VITAMIN B 12 AND FOLIC [id number] 00:00:00 Test Item Value Reference Range Interpretation Comments VITAMIN B-12 (test code = 2840) 689 PG/ML FOLIC ACID (test code = 2695) 5.7 UG/L HEMOGLOBIN [id number] 00:00:00 Test Item Value Reference Range Interpretation Comments HEMOGLOBIN A1c (test code = 66100) 5.1 % PAP TEST, THINPREP, [id number] 00:00:00 Test Item Value Reference Range Interpretation Comments SOURCE: (test code = Cervical/Endocervical 8001) SLIDES: (test code = 1 8011) LMP: (test code = 02/17/2018 8021) SPECIMEN ADEQUACY: (NOTE) (test code = 84544) INTERPRETATION: (test NO EPITHELIAL code = 88595) ABNORMALITY SEE BELOW DENTIST ATTENDANT: Ondina Rivero (test code = 8101) LEOPOLDO Moran(ASCP)IAC LOCATION: (test code (NOTE) = 39500) CPT: (test code = (NOTE) 8140) PAP TEST, THINPREP, [id number] 00:00:00 Test Item Value Reference Range Interpretation Comments SOURCE: (test code = Cervical/Endocervical 8001) SLIDES: (test code = 1 8011) LMP: (test code = 02/17/2018 8021) SPECIMEN ADEQUACY: (NOTE) (test code = 38594) INTERPRETATION: (test NO EPITHELIAL code = 89726) ABNORMALITY SEE BELOW DENTIST ATTENDANT: Ondina Rivero (test code = 8101) LEOPOLDO Moran(ASCP)IAC LOCATION: (test code (NOTE) = 62242) CPT: (test code = (NOTE) 8140) HEMOGLOBIN [id number] 00:00:00 Test Item Value Reference Range Interpretation Comments HEMOGLOBIN A1c (test code = 48596) 5.1 % HEMOGLOBIN [id number] 00:00:00 Test Item Value Reference Range Interpretation Comments HEMOGLOBIN A1c (test code = 37891) 5.1 % HPV HIGH RISK WITH GENOTYPE, [id number] 00:00:00 Test Item Value Reference Range Interpretation Comments HPV HIGH RISK INTERP (test code = NEGATIVE 09204) HPV 16 (test code = 05114) NEGATIVE HPV 18 (test code = 33976) NEGATIVE HPV, HR, OTHER GENOTYPES (test code NEGATIVE = 13601) HPV HIGH RISK WITH GENOTYPE, [id number] 00:00:00 Test Item Value Reference Range Interpretation Comments HPV HIGH RISK INTERP (test code = NEGATIVE 17025) HPV 16 (test code = 25773) NEGATIVE HPV 18 (test code = 90451) NEGATIVE HPV, HR, OTHER GENOTYPES (test code NEGATIVE = 07933) LIPID [id number] 00:00:00 Test Item Value Reference Range Interpretation Comments CHOLESTEROL (test code = 2210) 157 MG/DL TRIGLYCERIDES (test code = 2232) 118 MG/DL HDL CHOLESTEROL (test code = 2220) 50 MG/DL CALC LDL CHOL (test code = 2237) 83 MG/DL RISK RATIO LDL/HDL (test code = 1.67 RATIO 2238) LIPID [id number] 00:00:00 Test Item Value Reference Range Interpretation Comments CHOLESTEROL (test code = 2210) 157 MG/DL TRIGLYCERIDES (test code = 2232) 118 MG/DL HDL CHOLESTEROL (test code = 2220) 50 MG/DL CALC LDL CHOL (test code = 2237) 83 MG/DL RISK RATIO LDL/HDL (test code = 1.67 RATIO 2238) COMPREHENSIVE METABOLIC [id number] 00:00:00 Test Item Value Reference Range Interpretation Comments GLUCOSE (test code = 2217) 90 MG/DL BUN (test code = 2208) 8 MG/DL CREATININE (test code = 2214) 0.57 MG/DL eGFR AMER. (test code 134 ML/MIN/1.73 = 17363) eGFR NON- AMER. (test 116 ML/MIN/1.73 code = 69646) CALC BUN/CREAT (test code = 14 RATIO 2235) SODIUM (test code = 2231) 141 MEQ/L POTASSIUM (test code = 2228) 4.4 MEQ/L CHLORIDE (test code = 2215) 102 MEQ/L CARBON DIOXIDE (test code = 27 MEQ/L 2205) CALCIUM (test code = 2209) 9.9 MG/DL PROTEIN, TOTAL (test code = 7.2 G/DL 2228) ALBUMIN (test code = 2201) 4.9 G/DL CALC GLOBULIN (test code = 2.3 G/DL 2239) CALC A/G RATIO (test code = 2.1 RATIO 2234) BILIRUBIN, TOTAL (test code = 0.6 MG/DL 2206) ALKALINE PHOSPHATASE (test 122 U/L code = 2204) AST (test code = 2218) 39 U/L ALT (test code = 2219) 73 U/L COMPREHENSIVE METABOLIC [id number] 00:00:00 Test Item Value Reference Range Interpretation Comments GLUCOSE (test code = 2217) 90 MG/DL BUN (test code = 2208) 8 MG/DL CREATININE (test code = 2214) 0.57 MG/DL eGFR AMER. (test code 134 ML/MIN/1.73 = 85584) eGFR NON- AMER. (test 116 ML/MIN/1.73 code = 15179) CALC BUN/CREAT (test code = 14 RATIO 2235) SODIUM (test code = 2231) 141 MEQ/L POTASSIUM (test code = 2228) 4.4 MEQ/L CHLORIDE (test code = 2215) 102 MEQ/L CARBON DIOXIDE (test code = 27 MEQ/L 220) CALCIUM (test code = 2209) 9.9 MG/DL PROTEIN, TOTAL (test code = 7.2 G/DL 2229) ALBUMIN (test code = 2201) 4.9 G/DL CALC GLOBULIN (test code = 2.3 G/DL 2240) CALC A/G RATIO (test code = 2.1 RATIO 2234) BILIRUBIN, TOTAL (test code = 0.6 MG/DL 2207) ALKALINE PHOSPHATASE (test 122 U/L code = 2204) AST (test code = 2218) 39 U/L ALT (test code = 2219) 73 U/L [id number] 00:00:00 Test Item Value Reference Range Interpretation Comments TSH, THIRD GENERATION (test code 3.630 UIU/ML = 2821) [id number] 00:00:00 Test Item Value Reference Range Interpretation Comments TSH, THIRD GENERATION (test code 3.630 UIU/ML = 2821) [id number] 00:00:00 Test Item Value Reference Range Interpretation Comments TSH, THIRD GENERATION (test code 3.630 UIU/ML = 2821) ACUTE HEPATITIS [id number] 00:00:00 Test Item Value Reference Range Interpretation Comments HEPATITIS A IgM (test code = NON-REACTIVE 80226) HEPATITIS B CORE IgM (test code NON-REACTIVE = 4644) HEPATITIS B SURF AG (test code = NON-REACTIVE 2739) HEPATITIS C ANTIBODY (test code NON-REACTIVE = 4675) INTERPRETATION HEPATITIS A: (NOTE) (test code = 2552) INTERPRETATION HEPATITIS B: (NOTE) (test code = 39424) INTERPRETATION HEPATITIS C: (NOTE) (test code = 85847) ACUTE HEPATITIS [id number] 00:00:00 Test Item Value Reference Range Interpretation Comments HEPATITIS A IgM (test code = NON-REACTIVE 55031) HEPATITIS B CORE IgM (test code NON-REACTIVE = 4644) HEPATITIS B SURF AG (test code = NON-REACTIVE 2739) HEPATITIS C ANTIBODY (test code NON-REACTIVE = 4675) INTERPRETATION HEPATITIS A: (NOTE) (test code = 2552) INTERPRETATION HEPATITIS B: (NOTE) (test code = 06573) INTERPRETATION HEPATITIS C: (NOTE) (test code = 80065) [id number] 00:00:00 Test Item Value Reference Range Interpretation Comments RPR RESULT (test code = NON-REACTIVE 3501) RPR TITER (test code = 3500) NOT INDIC. TITER [id number] 00:00:00 Test Item Value Reference Range Interpretation Comments RPR RESULT (test code = NON-REACTIVE 3501) RPR TITER (test code = 3500) NOT INDIC. TITER [id number] 00:00:00 Test Item Value Reference Range Interpretation Comments RPR RESULT (test code = NON-REACTIVE 3501) RPR TITER (test code = 3500) NOT INDIC. TITER HIV AB/AG COMBO RFLX [id number] 00:00:00 Test Item Value Reference Range Interpretation Comments HIV 1/2 4TH GEN, RFLX CONF (test NON-REACTIVE code = 3514) HIV AB/AG COMBO RFLX [id number] 00:00:00 Test Item Value Reference Range Interpretation Comments HIV 1/2 4TH GEN, RFLX CONF (test NON-REACTIVE code = 3514) VAGINAL PATHOGENS DNA [id number] 00:00:00 Test Item Value Reference Range Interpretation Comments CHRISTIAN SPECIES (test code = 20990) NEGATIVE G. VAGINALIS (test code = 76566) POSITIVE T. VAGINALIS (test code = 27422) NEGATIVE VAGINAL PATHOGENS DNA [id number] 00:00:00 Test Item Value Reference Range Interpretation Comments CHRISTIAN SPECIES (test code = 40719) NEGATIVE G. VAGINALIS (test code = 62666) POSITIVE T. VAGINALIS (test code = 49519) NEGATIVE VITAMIN D, 25 [id number] 00:00:00 Test Item Value Reference Range Interpretation Comments VITAMIN D, 25 OH (test code = 4958) 20 NG/ML VITAMIN D, 25 [id number] 00:00:00 Test Item Value Reference Range Interpretation Comments VITAMIN D, 25 OH (test code = 4958) 20 NG/ML VITAMIN B 12 AND FOLIC [id number] 00:00:00 Test Item Value Reference Range Interpretation Comments VITAMIN B-12 (test code = 2840) 689 PG/ML FOLIC ACID (test code = 2695) 5.7 UG/L VITAMIN B 12 AND FOLIC [id number] 00:00:00 Test Item Value Reference Range Interpretation Comments VITAMIN B-12 (test code = 2840) 689 PG/ML FOLIC ACID (test code = 2695) 5.7 UG/L CBC W/AUTO [id number] 00:00:00 Test Item Value Reference Range Interpretation Comments WBC (test code = 1001) 7.3 K/UL RBC (test code = 1002) 4.78 M/UL HEMOGLOBIN (test code = 1003) 14.2 G/DL HEMATOCRIT (test code = 1004) 41.7 % MCV (test code = 1005) 87.2 fL MCH (test code = 1006) 29.7 PG MCHC (test code = 1007) 34.1 G/DL RDW (test code = 1038) 12.6 % NEUTROPHILS (test code = 1008) 67.4 % LYMPHOCYTES (test code = 1010) 24.4 % MONOCYTES (test code = 1011) 4.1 % EOSINOPHILS (test code = 1012) 2.7 % BASOPHILS (test code = 1013) 1.4 % PLATELET COUNT (test code = 1015) 359 K/UL CBC W/AUTO [id number] 00:00:00 Test Item Value Reference Range Interpretation Comments WBC (test code = 1001) 7.3 K/UL RBC (test code = 1002) 4.78 M/UL HEMOGLOBIN (test code = 1003) 14.2 G/DL HEMATOCRIT (test code = 1004) 41.7 % MCV (test code = 1005) 87.2 fL MCH (test code = 1006) 29.7 PG MCHC (test code = 1007) 34.1 G/DL RDW (test code = 1038) 12.6 % NEUTROPHILS (test code = 1008) 67.4 % LYMPHOCYTES (test code = 1010) 24.4 % MONOCYTES (test code = 1011) 4.1 % EOSINOPHILS (test code = 1012) 2.7 % BASOPHILS (test code = 1013) 1.4 % PLATELET COUNT (test code = 1015) 359 K/UL CBC W/AUTO [id number] 00:00:00 Test Item Value Reference Range Interpretation Comments WBC (test code = 1001) 7.3 K/UL RBC (test code = 1002) 4.78 M/UL HEMOGLOBIN (test code = 1003) 14.2 G/DL HEMATOCRIT (test code = 1004) 41.7 % MCV (test code = 1005) 87.2 fL MCH (test code = 1006) 29.7 PG MCHC (test code = 1007) 34.1 G/DL RDW (test code = 1038) 12.6 % NEUTROPHILS (test code = 1008) 67.4 % LYMPHOCYTES (test code = 1010) 24.4 % MONOCYTES (test code = 1011) 4.1 % EOSINOPHILS (test code = 1012) 2.7 % BASOPHILS (test code = 1013) 1.4 % PLATELET COUNT (test code = 1015) 359 K/UL GC AND CHLAMYDIA AMPLIFIED, [id number] 00:00:00 Test Item Value Reference Range Interpretation Comments GONORRHEA, TMA (test code = 02278) NEGATIVE CHLAMYDIA, TMA (test code = 59257) POSITIVE GC AND CHLAMYDIA AMPLIFIED, [id number] 00:00:00 Test Item Value Reference Range Interpretation Comments GONORRHEA, TMA (test code = 60654) NEGATIVE CHLAMYDIA, TMA (test code = 02153) POSITIVE HEMOGLOBIN [id number] 00:00:00 Test Item Value Reference Range Interpretation Comments HEMOGLOBIN A1c (test code = 05308) 5.1 % HEMOGLOBIN [id number] 00:00:00 Test Item Value Reference Range Interpretation Comments HEMOGLOBIN A1c (test code = 22677) 5.1 % HEMOGLOBIN [id number] 00:00:00 Test Item Value Reference Range Interpretation Comments HEMOGLOBIN A1c (test code = 62186) 5.1 % PAP TEST, THINPREP, [id number] 00:00:00 Test Item Value Reference Range Interpretation Comments SOURCE: (test code = Cervical/Endocervical 8001) SLIDES: (test code = 1 8011) LMP: (test code = 02/17/2018 8021) SPECIMEN ADEQUACY: (NOTE) (test code = 36955) INTERPRETATION: (test NO EPITHELIAL code = 33174) ABNORMALITY SEE BELOW DENTIST ATTENDANT: Ondina Rivero (test code = 8101) LEOPOLDO Moran(ASCP)IAC LOCATION: (test code (NOTE) = 74398) CPT: (test code = (NOTE) 8140) PAP TEST, THINPREP, [id number] 00:00:00 Test Item Value Reference Range Interpretation Comments SOURCE: (test code = Cervical/Endocervical 8001) SLIDES: (test code = 1 8011) LMP: (test code = 02/17/2018 8021) SPECIMEN ADEQUACY: (NOTE) (test code = 81750) INTERPRETATION: (test NO EPITHELIAL code = 43034) ABNORMALITY SEE BELOW DENTIST ATTENDANT: Ondina Rivero (test code = 8101) LEOPOLDO Moran(ASCP)IAC LOCATION: (test code (NOTE) = 31568) CPT: (test code = (NOTE) 8140) HPV HIGH RISK WITH GENOTYPE, [id number] 00:00:00 Test Item Value Reference Range Interpretation Comments HPV HIGH RISK INTERP (test code = NEGATIVE 43564) HPV 16 (test code = 73000) NEGATIVE HPV 18 (test code = 23923) NEGATIVE HPV, HR, OTHER GENOTYPES (test code NEGATIVE = 85719) HPV HIGH RISK WITH GENOTYPE, [id number] 00:00:00 Test Item Value Reference Range Interpretation Comments HPV HIGH RISK INTERP (test code = NEGATIVE 33283) HPV 16 (test code = 31152) NEGATIVE HPV 18 (test code = 90672) NEGATIVE HPV, HR, OTHER GENOTYPES (test code NEGATIVE = 38617) LIPID [id number] 00:00:00 Test Item Value Reference Range Interpretation Comments CHOLESTEROL (test code = 2210) 157 MG/DL TRIGLYCERIDES (test code = 2232) 118 MG/DL HDL CHOLESTEROL (test code = 2220) 50 MG/DL CALC LDL CHOL (test code = 2237) 83 MG/DL RISK RATIO LDL/HDL (test code = 1.67 RATIO 2238) LIPID [id number] 00:00:00 Test Item Value Reference Range Interpretation Comments CHOLESTEROL (test code = 2210) 157 MG/DL TRIGLYCERIDES (test code = 2232) 118 MG/DL HDL CHOLESTEROL (test code = 2220) 50 MG/DL CALC LDL CHOL (test code = 2237) 83 MG/DL RISK RATIO LDL/HDL (test code = 1.67 RATIO 2238) COMPREHENSIVE METABOLIC [id number] 00:00:00 Test Item Value Reference Range Interpretation Comments GLUCOSE (test code = 2217) 90 MG/DL BUN (test code = 2208) 8 MG/DL CREATININE (test code = 2214) 0.57 MG/DL eGFR AMER. (test code 134 ML/MIN/1.73 = 26787) eGFR NON- AMER. (test 116 ML/MIN/1.73 code = 53339) CALC BUN/CREAT (test code = 14 RATIO 2235) SODIUM (test code = 2231) 141 MEQ/L POTASSIUM (test code = 2228) 4.4 MEQ/L CHLORIDE (test code = 2215) 102 MEQ/L CARBON DIOXIDE (test code = 27 MEQ/L 220) CALCIUM (test code = 2209) 9.9 MG/DL PROTEIN, TOTAL (test code = 7.2 G/DL 2228) ALBUMIN (test code = 2201) 4.9 G/DL CALC GLOBULIN (test code = 2.3 G/DL 2240) CALC A/G RATIO (test code = 2.1 RATIO 2234) BILIRUBIN, TOTAL (test code = 0.6 MG/DL 2206) ALKALINE PHOSPHATASE (test 122 U/L code = 2204) AST (test code = 2218) 39 U/L ALT (test code = 2219) 73 U/L COMPREHENSIVE METABOLIC [id number] 00:00:00 Test Item Value Reference Range Interpretation Comments GLUCOSE (test code = 2217) 90 MG/DL BUN (test code = 2208) 8 MG/DL CREATININE (test code = 2214) 0.57 MG/DL eGFR AMER. (test code 134 ML/MIN/1.73 = 67949) eGFR NON- AMER. (test 116 ML/MIN/1.73 code = 77409) CALC BUN/CREAT (test code = 14 RATIO 2235) SODIUM (test code = 2231) 141 MEQ/L POTASSIUM (test code = 2228) 4.4 MEQ/L CHLORIDE (test code = 2215) 102 MEQ/L CARBON DIOXIDE (test code = 27 MEQ/L 2205) CALCIUM (test code = 2209) 9.9 MG/DL PROTEIN, TOTAL (test code = 7.2 G/DL 2228) ALBUMIN (test code = 2201) 4.9 G/DL CALC GLOBULIN (test code = 2.3 G/DL 2240) CALC A/G RATIO (test code = 2.1 RATIO 2234) BILIRUBIN, TOTAL (test code = 0.6 MG/DL 2206) ALKALINE PHOSPHATASE (test 122 U/L code = 2204) AST (test code = 2218) 39 U/L ALT (test code = 2219) 73 U/L [id number] 00:00:00 Test Item Value Reference Range Interpretation Comments TSH, THIRD GENERATION (test code 3.630 UIU/ML = 2821) [id number] 00:00:00 Test Item Value Reference Range Interpretation Comments TSH, THIRD GENERATION (test code 3.630 UIU/ML = 2821) [id number] 00:00:00 Test Item Value Reference Range Interpretation Comments TSH, THIRD GENERATION (test code 3.630 UIU/ML = 2821) ACUTE HEPATITIS [id number] 00:00:00 Test Item Value Reference Range Interpretation Comments HEPATITIS A IgM (test code = NON-REACTIVE 39463) HEPATITIS B CORE IgM (test code NON-REACTIVE = 4644) HEPATITIS B SURF AG (test code = NON-REACTIVE 2739) HEPATITIS C ANTIBODY (test code NON-REACTIVE = 4675) INTERPRETATION HEPATITIS A: (NOTE) (test code = 2552) INTERPRETATION HEPATITIS B: (NOTE) (test code = 75832) INTERPRETATION HEPATITIS C: (NOTE) (test code = 90829) ACUTE HEPATITIS [id number] 00:00:00 Test Item Value Reference Range Interpretation Comments HEPATITIS A IgM (test code = NON-REACTIVE 16748) HEPATITIS B CORE IgM (test code NON-REACTIVE = 4644) HEPATITIS B SURF AG (test code = NON-REACTIVE 2739) HEPATITIS C ANTIBODY (test code NON-REACTIVE = 4675) INTERPRETATION HEPATITIS A: (NOTE) (test code = 2552) INTERPRETATION HEPATITIS B: (NOTE) (test code = 36074) INTERPRETATION HEPATITIS C: (NOTE) (test code = 08232) [id number] 00:00:00 Test Item Value Reference Range Interpretation Comments RPR RESULT (test code = NON-REACTIVE 3501) RPR TITER (test code = 3500) NOT INDIC. TITER [id number] 00:00:00 Test Item Value Reference Range Interpretation Comments RPR RESULT (test code = NON-REACTIVE 3501) RPR TITER (test code = 3500) NOT INDIC. TITER [id number] 00:00:00 Test Item Value Reference Range Interpretation Comments RPR RESULT (test code = NON-REACTIVE 3501) RPR TITER (test code = 3500) NOT INDIC. TITER HIV AB/AG COMBO RFLX [id number] 00:00:00 Test Item Value Reference Range Interpretation Comments HIV 1/2 4TH GEN, RFLX CONF (test NON-REACTIVE code = 3514) HIV AB/AG COMBO RFLX [id number] 00:00:00 Test Item Value Reference Range Interpretation Comments HIV 1/2 4TH GEN, RFLX CONF (test NON-REACTIVE code = 3514) VAGINAL PATHOGENS DNA [id number] 00:00:00 Test Item Value Reference Range Interpretation Comments CHRISTIAN SPECIES (test code = ) NEGATIVE G. VAGINALIS (test code = ) POSITIVE T. VAGINALIS (test code = ) NEGATIVE VAGINAL PATHOGENS DNA [id number] 00:00:00 Test Item Value Reference Range Interpretation Comments CHRISTIAN SPECIES (test code = ) NEGATIVE G. VAGINALIS (test code = ) POSITIVE T. VAGINALIS (test code = ) NEGATIVE VITAMIN D, 25 [id number] 00:00:00 Test Item Value Reference Range Interpretation Comments VITAMIN D, 25 OH (test code = 4958) 20 NG/ML VITAMIN D, 25 [id number] 00:00:00 Test Item Value Reference Range Interpretation Comments VITAMIN D, 25 OH (test code = 4958) 20 NG/ML VITAMIN B 12 AND FOLIC [id number] 00:00:00 Test Item Value Reference Range Interpretation Comments VITAMIN B-12 (test code = 2840) 689 PG/ML FOLIC ACID (test code = 2695) 5.7 UG/L VITAMIN B 12 AND FOLIC [id number] 00:00:00 Test Item Value Reference Range Interpretation Comments VITAMIN B-12 (test code = 2840) 689 PG/ML FOLIC ACID (test code = 2695) 5.7 UG/L
[2022-04-20] MEDS ORDERED: MORPHINE 4 MG/ML SYR ONE (16:00)
[2022-04-20] MEDS ORDERED: ONDANSETRON 4 MG/2 ML VIAL ONE (16:00)
[2022-04-20 16:20] LABS: Protime INR 1.03
[2022-04-20 16:21] LABS: Hematocrit 42.2 % (36.0-45.0); Lymphocytes % 17.8 % (15.3-44.8); MCV 85.3 fL (80-100); MPV 8.9 fL (7.6-11.3); RBC Red Blood Cell Count 4.94 M/uL (3.86-4.86)
[2022-04-20 16:36] LABS: Albumin 4.1 g/dL (3.4-5.0); Bilirubin Direct 0.2 mg/dL (0-0.2); Bilirubin Total 0.8 mg/dL (0.2-1.0); Magnesium 2.2 mg/dL (1.6-2.4); Potassium 3.9 mmol/L (3.5-5.1); Troponin High Sensitivity 12.9 pg/mL (<58.9)
[2022-04-20 16:43] LABS: Urine Blood Trace-intact (Negative); Urine Glucose Negative (Negative); Urine Protein Negative (Negative)
[2022-04-20 17:01] LABS: Thyroid Stimulating Hormone 2.09 uIU/mL (0.358-3.740)
--- NOTE | 2022-04-20 17:13 | RAD REPORT ---
EXAM DESCRIPTION: RAD - Chest Single View - 04/20/2022 5:08 pm CLINICAL HISTORY: CHEST PAIN COMPARISON: none FINDINGS: Lines: None. Lungs: No evidence of edema or pneumonia. Pleural: No significant pleural effusions or pneumothorax. Cardiac: The heart size is within normal limits. Mediastinum: Within normal limits. Bones: No acute fractures. Other: None IMPRESSION: No acute cardiopulmonary disease.
--- NOTE | 2022-04-20 18:04 | RAD REPORT ---
EXAM DESCRIPTION: CT - Chest For Pe Angio - 04/20/2022 5:55 pm CLINICAL HISTORY: chest pain, elevated d-dimer COMPARISON: No comparisons TECHNIQUE: Dynamically enhanced axial 3 mm thick images of the chest were obtained during administra tion of <100> mL Isovue 370 IV contrast. Coronal and oblique reconstruction images were generated and reviewed. Exam utilizes a protocol for optimal evaluation of pulmonary arterial tree. Maximum intensity projections 3D imaging was utilized All CT scans are performed using dose optimization technique as appropriate and may include automated exposure control or mA/KV adjustment according to patient size. FINDINGS: Chest Wall: No suspicious thyroid nodules or pathologic lymphadenopathy. Lungs: No acute abnormality. The extreme lung bases are not included in the field of view. Pleura: No significant effusions or pneumothorax. Mediastinum/emigdio: No pathologic lymphadenopathy. Pulmonary arteries/Aorta: No filling defect identified. No aortic aneurysm. Heart: No significant pericardial effusion. Normal heart size. Upper abdomen: No acute abnormality. Bones: No acute abnormality. IMPRESSION: Negative for pulmonary embolism. No other acute findings in the chest.
--- NOTE | 2022-04-20 18:30 | ER ---
Nurse's Notes [facility] Name: Aidee Russell Age: 46 yrs Sex: Female : 1975 Arrival Date: 04/20/2022 Time: 15:41 Bed 6 Private MD: Diagnosis: Chest pain, unspecified Presentation: 04/20 15:46 Chief complaint: Sharp left sided chest pain that radiates to left arm and left upper hb back and since this morning. Coronavirus screen: At this time, the client does not indicate any symptoms associated with coronavirus-19. Ebola Screen: No symptoms or risks identified at this time. Risk Assessment: Do you want to hurt yourself or someone else? Patient reports no desire to harm self or others. Onset of symptoms was April 20, 2022. 15:46 Method Of Arrival: Ambulatory hb 15:46 Acuity: DARRION 3 hb 15:50 Initial Sepsis Screen: Does the patient meet any 2 criteria? HR > 90 bpm. Does the aa5 patient have a suspected source of infection? No. Patient's initial sepsis screen is negative. Historical: - Allergies: 15:47 No Known Allergies; hb - Home Meds: 15:50 levothyroxine oral [Active]; aa5 - PMHx: 15:50 Hypothyroidism; Pre Diabetes; aa5 Screenin:50 [facility] ED Fall Risk Assessment (Adult) History of falling in the last 3 months, aa5 including since admission No falls in past 3 months (0 pts) Confusion or Disorientation No (0 pts) Intoxicated or Sedated No (0 pts) Impaired Gait No (0 pts) Mobility Assist Device Used No (0 pt) Altered Elimination No (0 pt) Score/Fall Risk Level 0 - 2 = Low Risk. Abuse screen: Denies threats or abuse. Nutritional screening: No deficits noted. Tuberculosis screening: No symptoms or risk factors identified. Assessment: 15:50 General: Appears uncomfortable, Behavior is calm, cooperative. Pain: Complains of pain aa5 in anterior aspect of left upper chest and mid-sternal area Pain radiates to left shoulder Pain currently is 8 out of 10 on a pain scale. Quality of pain is described as pressure, sharp, Pain began today Is continuous. Neuro: Level of Consciousness is awake, alert, obeys commands, Oriented to person, place, time, situation. Cardiovascular: Reports chest pain, Heart tones S1 S2 present Rhythm is sinus rhythm. Respiratory: Reports SOB with the chest pain Airway is patent Respiratory effort is even, unlabored, Respiratory pattern is regular, symmetrical, Breath sounds are clear bilaterally. GI: Abdomen is round non-distended, Bowel sounds present X 4 quads. Abd is soft and non tender X 4 quads. Patient currently denies abdominal pain, diarrhea, nausea, vomiting. : No signs and/or symptoms were reported regarding the genitourinary system. EENT: No signs and/or symptoms were reported regarding the EENT system. Derm: Skin is pink, warm \\T\\ dry. Musculoskeletal: Range of motion: intact in all extremities. 15:59 Reassessment: Patient is alert, oriented x 3, equal unlabored respirations, skin aa5 warm/dry/pink. 15:59 Pain: Pain currently is 8 out of 10 on a pain scale. aa5 16:20 Reassessment: Patient is alert, oriented x 3, equal unlabored respirations, skin aa5 warm/dry/pink. Patient states feeling better. Patient states symptoms have improved. General: Appears comfortable. Pain: Pain currently is 4 out of 10 on a pain scale. 16:45 Reassessment: Pt assisted to restroom, pt ambulatory, pt with steady gait, reports aa5 feeling better. . Pain: Pain currently is 4 out of 10 on a pain scale. 18:00 Reassessment: Patient is alert, oriented x 3, equal unlabored respirations, skin aa5 warm/dry/pink. Patient states feeling better. Pt back from CT scan, pt states "I just have a little bit of pain". Vital Signs: 15:46 BP 138 / 79; Pulse 94; Resp 16; Temp 98.1; Pulse Ox 100% on R/A; Weight 97.07 kg; hb Height 5 ft. (152.40 cm); Pain 8/10; 16:00 BP 132 / 75; Pulse 84; Resp 16 S; Pulse Ox 99% on R/A; aa5 18:00 BP 106 / 58; Pulse 82; Resp 14 S; Pulse Ox 98% on R/A; aa5 19:02 BP 110 / 65; Pulse 80; Resp 16; Pulse Ox 99% on R/A; vg1 15:46 Body Mass Index 41.79 (97.07 kg, 152.40 cm) hb ED Course: 15:41 Patient arrived in ED. mr 15:44 Tanner Dalal PA is PHCP. [facility] 15:44 Contreras Galindo MD is Attending Physician. [facility] 15:45 Darcy Castañeda, RN is Primary Nurse. aa5 15:47 Triage completed. hb 15:48 Arm band placed on. hb 15:50 Patient has correct armband on for positive identification. Placed in gown. Bed in low aa5 position. Call light in reach. Side rails up X2. Client placed on continuous cardiac and pulse oximetry monitoring. NIBP monitoring applied. 15:50 No provider procedures requiring assistance completed. Patient maintains SpO2 aa5 saturation greater than 95% on room air. 16:00 Initial lab(s) drawn, by me, sent to lab. Inserted saline lock: 20 gauge in right aa5 antecubital area, using aseptic technique. Blood collected. 17:10 XRAY Chest (1 view) In Process Unspecified. EDMS 17:57 CT Chest For PE Angio In Process Unspecified. EDMS 19:03 IV discontinued, intact, bleeding controlled, No redness/swelling at site. Pressure vg1 dressing applied. Administered Medications: 16:00 Drug: morphine 4 mg Route: IVP; Infused Over: 4 mins; Site: right antecubital; aa5 16:26 Follow up: Response: No adverse reaction; Pain is decreased aa5 16:00 Drug: Zofran (Ondansetron) 4 mg Route: IVP; Site: right antecubital; aa5 16:26 Follow up: Response: No adverse reaction aa5 Medication: 19:03 VIS not applicable for this client. vg1 Outcome: 18:29 Discharge ordered by . [facility] 19:02 Discharged to home ambulatory. vg1 19:02 Condition: good 19:02 Discharge instructions given to patient, Instructed on discharge instructions, follow up and referral plans. Demonstrated understanding of instructions, follow-up care. 19:03 Patient left the ED. vg1 Signatures: Dispatcher [employer] EDMS Tanner Dalal PA PA jmm Ayanna aRvi CastañedaDarcy, RN RN aa5 Ayde Martin, RN RN Karen Phillips RN RN vg1
--- NOTE | 2022-04-20 18:30 | EDPHYS ---
Physician Documentation [facility] Name: Aidee Russell Age: 46 yrs Sex: Female : 1975 Arrival Date: 04/20/2022 Time: 15:41 Bed 6 Private MD: ED Physician Contreras Galindo HPI: 04/20 15:54 This 46 yrs old Female presents to ER via Ambulatory with complaints of Chest jmm Pressure, Back Pain, Arm Pain. 15:54 The patient or guardian reports chest pain that is located primarily in the substernal jmm area. Onset: gradually, today, at 09:00. The pain radiates to This is a 46 year old female with a history of hypothyroidism that presents to the ED with complaints of substernal chest pain beginning this am around 0900. Denies history of CAD. Denies similar episodes in the past. Historical: - Allergies: 15:47 No Known Allergies; hb - Home Meds: 15:50 levothyroxine oral [Active]; aa5 - PMHx: 15:50 Hypothyroidism; Pre Diabetes; aa5 ROS: 18:23 Constitutional: Negative for fever, chills, and weight loss. jmm 18:23 Respiratory: Negative for shortness of breath, cough, wheezing, and pleuritic chest pain, Abdomen/GI: Negative for abdominal pain, nausea, vomiting, diarrhea, and constipation. 18:23 Constitutional: 18:23 Cardiovascular: Positive for chest pain. 18:23 All other systems are negative. Exam: 18:23 Constitutional: This is a well developed, well nourished patient who is awake, alert, jmm and in no acute distress. Head/Face: atraumatic. Eyes: EOMI, no conjunctival erythema appreciated ENT: Moist Mucus Membranes Neck: Trachea midline, Supple Chest/axilla: Normal chest wall appearance and motion. Cardiovascular: Regular rate and rhythm. No edema appreciated Respiratory: Normal respirations, no respiratory distress appreciated Abdomen/GI: Non distended Back: Normal ROM Skin: General appearance color normal 18:23 Musculoskeletal/extremity: ROM: intact in all extremities. 18:23 Skin: Appearance: Color: normal in color. 18:23 Neuro: Orientation: is normal, Mentation: is normal, Memory: is normal. 18:23 Psych: Behavior/mood is pleasant, cooperative. Vital Signs: 15:46 BP 138 / 79; Pulse 94; Resp 16; Temp 98.1; Pulse Ox 100% on R/A; Weight 97.07 kg; hb Height 5 ft. (152.40 cm); Pain 8/10; 16:00 BP 132 / 75; Pulse 84; Resp 16 S; Pulse Ox 99% on R/A; aa5 18:00 BP 106 / 58; Pulse 82; Resp 14 S; Pulse Ox 98% on R/A; aa5 19:02 BP 110 / 65; Pulse 80; Resp 16; Pulse Ox 99% on R/A; vg1 15:46 Body Mass Index 41.79 (97.07 kg, 152.40 cm) hb MDM: 15:54 Patient medically screened. [facility] 18:28 Data reviewed: vital signs, nurses notes, lab test result(s), radiologic studies, CT [facility] scan, plain films. Refusal of service: The patient/guardian displays adequate decision making capability and despite a detailed discussion of alternatives, benefits, risks, and consequences refuses: repeat troponin. 04/20 15:54 Order name: Basic Metabolic Panel; Complete Time: 17:02 [facility] 04/20 15:54 Order name: CBC with Diff; Complete Time: 16:24 [facility] 04/20 15:54 Order name: LFT's; Complete Time: 17:02 [facility] 04/20 15:54 Order name: Magnesium; Complete Time: 17:02 [facility] 04/20 15:54 Order name: NT PRO-BNP; Complete Time: 17:02 [facility] 04/20 15:54 Order name: PT-INR; Complete Time: 16:21 [facility] 04/20 15:54 Order name: Troponin HS; Complete Time: 17:02 [facility] 04/20 15:54 Order name: XRAY Chest (1 view); Complete Time: 17:18 [facility] 04/20 15:56 Order name: D-Dimer; Complete Time: 16:24 [facility] 04/20 16:25 Order name: CT Chest For PE Angio; Complete Time: 18:15 [facility] 04/20 16:43 Order name: Thyroid Stimulating Hormone; Complete Time: 17:02 [facility] 04/20 16:43 Order name: Urine Dipstick-Ancillary; Complete Time: 16:47 [facility] 04/20 15:54 Order name: EKG; Complete Time: 15:55 [facility] 04/20 15:54 Order name: Cardiac monitoring; Complete Time: 15:57 [facility] 04/20 15:54 Order name: EKG - Nurse/Tech; Complete Time: 15:57 [facility] 04/20 15:54 Order name: IV Saline Lock; Complete Time: 16:12 [facility] 04/20 15:54 Order name: Labs collected and sent; Complete Time: 16:12 [facility] 04/20 15:54 Order name: O2 Per Protocol; Complete Time: 15:57 [facility] 04/20 15:54 Order name: O2 Sat Monitoring; Complete Time: 15:57 [facility] Administered Medications: 16:00 Drug: morphine 4 mg Route: IVP; Infused Over: 4 mins; Site: right antecubital; aa5 16:26 Follow up: Response: No adverse reaction; Pain is decreased aa5 16:00 Drug: Zofran (Ondansetron) 4 mg Route: IVP; Site: right antecubital; aa5 16:26 Follow up: Response: No adverse reaction aa5 Disposition Summary: 04/20/22 18:29 Discharge Ordered Location: Home [facility] Condition: Stable [facility] Diagnosis - Chest pain, unspecified [facility] Followup: [facility] - With: Private Physician - When: 2 - 3 days - Reason: Recheck today's complaints, Continuance of care, Re-evaluation by your physician Discharge Instructions: - Discharge Summary Sheet [facility] - Nonspecific Chest Pain, Adult [facility] Forms: - Medication Reconciliation Form [facility] - Thank You Letter [facility] - Antibiotic Education [facility] - Prescription Opioid Use [facility] Addendum: 04/21/2022 19:26 Co-signature as Attending Physician, Contreras Galindo MD I agree with the assessment and r t plan of care. Signatures: Dispatcher [employer] EDMS Tanner Dalal PA PA m Darcy Castañeda RN RN aa5 Ayde Martin RN RN Contreras Galindo MD MD rt Corrections: (The following items were deleted from the chart) 04/20 16:44 16:35 THYROID STIMULAT HORMONE+C.LAB.BRZ ordered. EDMS EDMS
[2022-04-20 19:13] VITALS: TEMP 98.1
[2022-04-20 19:30] VITALS: BP 110/65; O2SAT 99
--- NOTE | 2022-04-22 17:27 | EKG ---
Test Date: 2022-04-20 Test Time: 15:51:54 Tractor Operator Helper: RHONA MEASUREMENT RESULTS: Intervals: Rate: 96 HI: 142 QRSD: 78 QT: 348 QTc: 439 [place]: P: 66 HI: 142 QRS: 54 T: -78 INTERPRETIVE STATEMENTS: Normal sinus rhythm ST & T wave abnormality, consider inferior ischemia ST & T wave abnormality, consider anterolateral ischemia Abnormal ECG No previous ECG available for comparison Electronically Signed On 04-22-22 17:24:55 REGULATORY AFFAIRS SPECIALIST by Dandre Stack
== END 2022-04-20 19:03 | disposition home or self-care (01) ==
LOC: ER 15:39
DX: R07.89 Other chest pain (principal); E03.9 Hypothyroidism, unspecified
CPT/HCPCS: 36415; 71045; 71275; 80048; 80076; 81003; 83735; 83880; 84443; 84484; 85025; 85379; 85610; 93005; 96374; 96375; 99285; J2405; Q9967